=== PATIENT | female | born 1965 | race Caucasian/White ===

== ENCOUNTER → 2016-08-10 | Outpatient (CLI) | payer MEDICAID ==
--- NOTE | 2016-08-10 17:02 | MY ---
EXAMINATION: Bilateral digital mammography utilizing CAD. HISTORY: Screening exam. Comparison is made to previous studies dated 07/17/2014, 01/08/2012. FINDINGS: Bilateral scattered fibroglandular densities. No suspicious calcifications, masses or a rchitectural distortions. No pathologic appearing lymph nodes, no abnormal skin thickening or nipp le inversion. CAD highlighted regions appear normal at this time. IMPRESSION: BI-RADS category I - negative mammogram. Continued screening according to ACR-ACS gu idelines suggested. THE FALSE-NEGATIVE RATE OF MAMMOGRAM IS APPROXIMATELY 10%. MANAGEMENT OF A PALPABLE ABNORMALITY MUST BE BASED UPON CLINICAL GROUNDS. SENSITIVITY FOR DETECTION OF ABNORMALITIES IN DENSE BREASTS IS LOW. NOTE: A letter will be sent to the patient regarding findings. [facility] -- JOHANNA Reed [phone] - FAX [phone]
--- NOTE | 2016-08-11 20:03 | XA ---
Exam Date: 08/10/16 Patient's Age: 50 HEIGHT: 62.0 in. WEIGHT: 170.0 lbs. INDICATIONS: Back pain, , history of fracture (adult), hypertension, perimenopausal, tobacco user. FRACTURES: Foot, rib, toe. TREATMENTS: Doxepin, lamotrigine, lisinopril, Xarelto. ASSESSMENT: The BMD measured at Femur Neck Mean is 0.737 g/cm2 with a T-score of -2.2. This patient is considered osteopenic according to World Health Organization ( WHO) criteria. Bone density is between 10% and 25% below young normal. Fracture risk is moderate. Treatment is advised. The BMD measured at Femur Troch Mean is 0.669 g/cm2 with a T-score of -1.6 is considered moderately low. Fracture risk is moderate. Treatment is advised if there are other risk factors. RESULTS: Site Region Age Classification T-Score BMD AP Spine L1-L4 52.7 Osteopenia -1.7 0.990 g/cm2 Dual Femur Neck Mean 52.7 Osteopenia -2.2 0.737 g/cm2 Dual Femur Troch Mean 52.7 N/A -1.6 0.669 g/cm2 Dual Femur Total Mean 52.7 Osteopenia -1.5 0.820 g/cm2 World Health Organization - Criteria for post-menopausal, women: Normal: T-Score at or above -1 SD Osteopenia: T-Score between -1 and -2.5 SD Osteoporosis: T-Score at or below -2.5 SD RECOMMENDATION: Pharmacologic treatment recommendations & Initiate pharmacologic treatment: - In those with hip or vertebral (clinical or asymptomatic) fractures - In those with T -scores <-2.5 at the femoral neck, total hip, or lumbar spine by DXA - In postmenopausal women and men age 50 and older with low bone mass (T-score between -1.0 and -2.5, osteopenia) at the femoral neck, total hip, or lumbar spine by DXA and a 10-year hip fracture probability >3 % or a 10-year major osteoporosis-related fracture probability >20% based on the [place]-adapted WHO absolute fracture risk model (Fracture Risk Algorithm (FRAX); www. NOF.org and www.shef.ac.uk/FRAX) FOLLOW UP: People with diagnosed cases of osteoporosis or at high risk for fracture should have regular bone mineral density tests. For patients eligible for Medicare, routine testing is allowed once every 2 years. The testing frequency can be increased to 1 year for patients who have rapidly progressing disease, those who are reviewing or discontinuing medial therapy to restore bone mass, or have additional risk factors. People with diagnosed cases of osteoporosis or osteopenia should be regularly tested for bone mineral density. For patient eligible for Medicare, routine testing is allowed once every 2 years. The testing frequency can be increased to 1 year for patients who have rapidly progressing disease, or for those who are receiving medial therapy to restore bone mass. [facility] -- JOHANNA Reed [phone] - FAX: [phone] JOYCE
== END ==
LOC: MW.MAM 12:40
PROVIDERS: ATTEND Obstetrics & Gynecology
DX: Z12.31 Encounter for screening mammogram for malignant neoplasm of breast (principal); N95.1 Menopausal and female climacteric states
CPT/HCPCS: 77080; G0202

== ENCOUNTER 2016-08-27 12:25 | Observation (INO) | payer MEDICAID ==
[2016-08-27] MEDS ORDERED: Famotidine 20 MG/2 ML SDV IVPUSH ONE (12:47)
[2016-08-27] MEDS ORDERED: Sodium Chloride 0.9% 1,000 ML IV ONE ×2 (12:47→15:00)
[2016-08-27] MEDS ORDERED: Sodium Chloride 0.9% 2.5 ML Syringe FLUSH PRN (12:47)
[2016-08-27] MEDS ORDERED: Sodium Chloride 0.9% 10 ML Syringe FLUSH PRN (12:47)
--- NOTE | 2016-08-27 12:51 | EDM.PDOC ---
ED HISTORY OF PRESENT ILLNESS - General Chief Complaint: Neurological Problem Stated Complaint: HEART ATTACK Time Seen by Provider: 08/27/16 12:51 Source of Information: Reports: Patient History Limitations: Reports: No limitations - History of Present Illness INITIAL COMMENTS - FREE TEXT/NARRATIVE: HISTORY AND PHYSICAL: [50-year-old presenting with midsternal chest pain radiating latterally] History of Present Illness: [] Review of Systems: As per history of present illness and below otherwise all systems reviewed and negative. Past medical history: As per history of present illness and as reviewed below otherwise noncontributory. Surgical history: As per history of present illness and as reviewed below otherwise noncontributory. Social history: No reported history of drug or alcohol abuse. Family history: As per history of present illness and as reviewed below otherwise noncontributory. Physical exam: HEENT: Atraumatic, normocehpalic, pupils reactive, negative for conjunctival pallor or scleral icterus, mucous membranes moist, throat clear, neck supple, nontender, trachea midline. Lungs: Clear to auscultation, breath sounds equal bilaterally, chest non tender. Heart: S1S2, regular, negative for clicks, rubs, or JVD. Abdomen: Soft, nondistended, nontender. Negative for masses or hepatossplenmegaly. Negative for costovertebral tenderness. Pelvis: Stable nontender. Genitourinary: Deferred. Rectal: Deferred Extremities: Atraumatic, negative for cords or calf pain. Neurovascular unremarkable. Neuro: Awake, alert, oriented. Cranial nerves II through XII unremarkable. Cerebellum unremarkable. Motor and sensory unremarkable throughout. Exam nonfocal. Discussed case with Dr. Flores who accepted patient for observation. She will be placed on telemetry. Discussed concerns with the patient and request for her to stay for observation on telemetry. She is agreeable to this. Diagnostics: [cbc,cmp,cxr,lipase, amylase,ua EKG] Therapeutics: [Morphine 2 mg X2 Nitrostat sublingual x3] Impression: [#1 chest wall pain #2 seizures] Plan: Refer for observation Definitive disposition and diagnosis as appropriate pending reevaluation and review of above. Timing/Duration: Reports: Hour(s):, Sudden onset Severity: severe (01/21) Quality: Reports: Stabbing - Related Data Allergies/ADRs: Allergies Allergy/AdvReac Type Severity Reaction Status Date / Time aspirin Allergy Ringing in Verified 08/27/16 13:04 the Ears banana Allergy Stomach Verified 08/27/16 13:04 Ache [place] Allergy Stomach Uncoded 08/27/16 13:04 Ache [place] Allergy Stomach Uncoded 08/27/16 13:04 Ache Home Meds: Home Meds Doxepin HCl [Doxepin] 300 mg PO BEDTIME 12/27/13 [History] Omeprazole 40 mg PO BID 11/10/14 [History] Albuterol [Proair HFA] 1 - 2 inhaler INH ASDIRECTED PRN 12/21/14 [History] Fluticasone/Salmeterol [Advair 250-50] 1 inh INH ASDIRECTED PRN 12/21/14 [ History] Rivaroxaban [Xarelto] 20 mg PO DAILY 02/16/16 [History] lamoTRIgine [Lamotrigine] 100 mg PO BID 02/16/16 [History] Past Medical History HEENT History: Reports: Other (see below) Other HEENT History: TMJ "on Right" Cardiovascular History: Reports: Blood clots/VTE/DVT, Other (see below) Other Cardiovascular History: "Central Chest Pain" Respiratory History: Reports: Asthma Other Respiratory History: 40 yr history of smoking current use 1 pack/day Gastrointestinal History: Reports: None Genitourinary History: Reports: None 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: Musculoskeletal History: Reports: Arthritis, Back pain, chronic, Fibromyalgia, Other (see below) Other Musculoskeletal History: chronic shoulder pain Neurological History: Reports: Seizure Other Neuro History: TMJ Psychiatric History: Reports: Anxiety, Depression Other Psychiatric History: By diagnosis not shared in this interview Endocrine/Metabolic History: Reports: Obesity/BMI 30+ Hematologic History: Reports: Other (see below) Other Hematologic History: DVT Immunologic History: Reports: None Oncologic (Cancer) History: Reports: None Dermatologic History: Reports: None - Infectious Disease History Infectious Disease History: Reports: Chicken pox - Past Surgical History HEENT Surgical History: Reports: Tonsillectomy, Other (see below) Other HEENT Surgeries/Procedures: Cosmetic surgery under eyes GI Surgical History: Reports: Hernia, inguinal Female Surgical History: Reports: section Musculoskeletal Surgical History: Reports: Other (see below) Other Musculoskeletal Surgeries/Procedures:: left ankle fracture, 2nd MT osteotomy, gastroc recession Social & Family History - Family History Family Medical History: Noncontributory - Tobacco Use Smoking Status *Q: Current Every Day Smoker Years of Tobacco use: 30 Packs/Tins Daily: 1 Used Tobacco, but Quit: No Second Hand Smoke Exposure: Yes - Alcohol Use Days Per Week of Alcohol Use: 4 Number of Drinks Per Day: 1 Total Drinks Per Week: 4 - Recreational Drug Use Recreational Drug Use: No Drug Use in Last 12 Months: No - Living Situation & Occupation Living situation: Reports: ED ROS GENERAL - Review of Systems Review Of Systems: ROS reveals no pertinent complaints other than HPI. ED EXAM, GENERAL - Physical Exam Exam: See Below (see dictation) EKG INTERPRETATION EKG Date: 08/27/16 Rhythm: other (Sinus tachycardia) Course - Vital Signs Last Recorded V/S: Last Vital Signs Temp 36.8 C 08/27/16 12:45 Pulse 84 08/27/16 15:43 Resp 18 08/27/16 15:43 BP 146/91 H 08/27/16 15:43 Pulse Ox 96 08/27/16 15:43 - Orders/Labs/Meds Orders: Active Orders 24 hr Category Date Time Status Patient Status [ADT] Stat ADT 08/27/16 15:10 Active Cardiac Monitoring [RC] Q8H Care 08/27/16 12:47 Active EKG Documentation Completion [RC] STAT Care 08/27/16 12:49 Active Oxygen Therapy [RC] ASDIRECTED Care 08/27/16 12:47 Active Sodium Chloride 0.9% [Saline Flush] Med 08/27/16 12:47 Active 10 ml FLUSH ASDIRECTED PRN Sodium Chloride 0.9% [Saline Flush] Med 08/27/16 12:47 Active 2.5 ml FLUSH ASDIRECTED PRN Saline Lock Insert [OM.PC] Stat Oth 08/27/16 12:47 Ordered Medication Orders Sodium Chloride (Saline Flush) 10 ml FLUSH ASDIRECTED PRN PRN Reason: Keep Vein Open Sodium Chloride (Saline Flush) 2.5 ml FLUSH ASDIRECTED PRN PRN Reason: Keep Vein Open Labs: Laboratory Tests 08/27/16 08/27/16 08/27/16 Range/Units 12:35 12:35 13:41 WBC 7.51 (4.0-11.0) K/uL RBC 4.32 (4.30-5.90) M/uL Hgb 14.3 (12.0-16.0) g/dL Hct 42.8 (36.0-46.0) % MCV 99.1 H (80.0-98.0) fL MCH 33.1 H (27.0-32.0) pg MCHC 33.4 (31.0-37.0) g/dL RDW Std Deviation 53.7 (28.0-62.0) fl RDW Coeff of Arleen 15 (11.0-15.0) % Plt Count 256 (150-400) K/uL MPV 10.80 (7.40-12.00) fL Neut % (Auto) 65.3 (48.0-80.0) % Lymph % (Auto) 19.3 (16.0-40.0) % [place] % (Auto) 13.7 (0.0-15.0) % Eos % (Auto) 1.3 (0.0-7.0) % Baso % (Auto) 0.4 (0.0-1.5) % Neut # 4.9 (1.4-5.7) K/uL Lymph # 1.5 (0.6-2.4) K/uL [place] # 1.0 H (0.0-0.8) K/uL Eos # 0.1 (0.0-0.7) K/uL Baso # 0.0 (0.0-0.1) K/uL Nucleated RBC % 0.0 /100WBC Nucleated RBCs # 0 K/uL INR 1.22 H (0.86-1.11) Sodium (136-146) mmol/L Potassium (3.5-5.1) mmol/L Chloride (98-110) mmol/L Carbon Dioxide (21-31) mmol/L BUN (6.0-23.0) mg/dL Creatinine (0.6-1.5) mg/dL Est Cr Clr Drug Dosing mL/min Estimated GFR (MDRD) ml/min Glucose (60-110) mg/dL Calcium (8.8-10.8) mg/dL Total Bilirubin (0.1-1.5) mg/dL AST (5-40) IU/L ALT (8-54) IU/L Alkaline Phosphatase (40-150) Troponin I < 0.10 (0.0-0.29) NG/ML Total Protein (6.0-8.0) g/dL Albumin (3.5-5.0) g/dL Globulin (2.0-3.5) g/dL Albumin/Globulin Ratio (1.3-2.8) Amylase (10-90) U/L Lipase (7-80) U/L Urine Color Urine Appearance Urine pH (5.0-8.0) Ur Specific [place] (1.001-1.035) Urine Protein (NEGATIVE) mg/dL Urine Glucose (UA) (NEGATIVE) mg/dL Urine Ketones (NEGATIVE) mg/dL Urine Occult Blood (NEGATIVE) Urine Nitrite (NEGATIVE) Urine Bilirubin (NEGATIVE) Urine Urobilinogen (<2.0) EU/dL Ur Leukocyte Esterase (NEGATIVE) Urine RBC (0-2/HPF) Urine WBC (0-5/HPF) Ur Epithelial Cells (NONE-FEW) Urine Bacteria (NEGATIVE) 08/27/16 08/27/16 Range/Units 13:41 14:00 WBC (4.0-11.0) K/uL RBC (4.30-5.90) M/uL Hgb (12.0-16.0) g/dL Hct (36.0-46.0) % MCV (80.0-98.0) fL MCH (27.0-32.0) pg MCHC (31.0-37.0) g/dL RDW Std Deviation (28.0-62.0) fl RDW Coeff of Arleen (11.0-15.0) % Plt Count (150-400) K/uL MPV (7.40-12.00) fL Neut % (Auto) (48.0-80.0) % Lymph % (Auto) (16.0-40.0) % [place] % (Auto) (0.0-15.0) % Eos % (Auto) (0.0-7.0) % Baso % (Auto) (0.0-1.5) % Neut # (1.4-5.7) K/uL Lymph # (0.6-2.4) K/uL [place] # (0.0-0.8) K/uL Eos # (0.0-0.7) K/uL Baso # (0.0-0.1) K/uL Nucleated RBC % /100WBC Nucleated RBCs # K/uL INR (0.86-1.11) Sodium 134 L (136-146) mmol/L Potassium 4.1 (3.5-5.1) mmol/L Chloride 103 (98-110) mmol/L Carbon Dioxide 25 (21-31) mmol/L BUN 12 (6.0-23.0) mg/dL Creatinine 0.9 (0.6-1.5) mg/dL Est Cr Clr Drug Dosing 57.83 mL/min Estimated GFR (MDRD) > 60.0 ml/min Glucose 104 (60-110) mg/dL Calcium 8.9 (8.8-10.8) mg/dL Total Bilirubin 0.4 (0.1-1.5) mg/dL AST 30 (5-40) IU/L ALT 27 (8-54) IU/L Alkaline Phosphatase 69 (40-150) Troponin I (0.0-0.29) NG/ML Total Protein 6.8 (6.0-8.0) g/dL Albumin 3.7 (3.5-5.0) g/dL Globulin 3.1 (2.0-3.5) g/dL Albumin/Globulin Ratio 1.2 L (1.3-2.8) Amylase 42 (10-90) U/L Lipase 32 (7-80) U/L Urine Color YELLOW Urine Appearance CLEAR Urine pH 7.0 (5.0-8.0) Ur Specific [place] 1.010 (1.001-1.035) Urine Protein NEGATIVE (NEGATIVE) mg/dL Urine Glucose (UA) NEGATIVE (NEGATIVE) mg/dL Urine Ketones NEGATIVE (NEGATIVE) mg/dL Urine Occult Blood NEGATIVE (NEGATIVE) Urine Nitrite NEGATIVE (NEGATIVE) Urine Bilirubin NEGATIVE (NEGATIVE) Urine Urobilinogen 0.2 (<2.0) EU/dL Ur Leukocyte Esterase NEGATIVE (NEGATIVE) Urine RBC 0-1 (0-2/HPF) Urine WBC 0-2 (0-5/HPF) Ur Epithelial Cells FEW (NONE-FEW) Urine Bacteria FEW (NEGATIVE) Meds: Medications Generic Name Dose Route Start Last Admin Trade Name Freq PRN Reason Stop Dose Admin Sodium Chloride 10 ml 08/27/16 12:47 Saline Flush FLUSH ASDIRECTED PRN Keep Vein Open Sodium Chloride 2.5 ml 08/27/16 12:47 Saline Flush FLUSH ASDIRECTED PRN Keep Vein Open Discontinued Medications Generic Name Dose Route Start Last Admin Trade Name Freq PRN Reason Stop Dose Admin Famotidine 20 mg 08/27/16 12:47 08/27/16 13:14 Pepcid IVPUSH 08/27/16 12:48 20 mg ONETIME ONE Administration Sodium Chloride 1,000 mls @ 999 mls/hr 08/27/16 12:47 08/27/16 12:56 Normal Saline IV 08/27/16 13:47 999 mls/hr .Bolus ONE Administration Sodium Chloride 1,000 mls @ 999 mls/hr 08/27/16 15:00 08/27/16 15:20 Normal Saline IV 08/27/16 16:00 999 mls/hr STAT ONE Administration Morphine Sulfate 2 mg 08/27/16 15:11 08/27/16 15:18 Morphine IV 08/27/16 15:12 2 mg ONETIME ONE Administration Morphine Sulfate 2 mg 08/27/16 15:35 08/27/16 15:42 Morphine IV 08/27/16 15:36 2 mg ONETIME ONE Administration Nitroglycerin 0.4 mg 08/27/16 15:09 08/27/16 15:31 Nitrostat SL 08/27/16 15:20 0.4 mg Q5M PRN Administration Chest Pain Departure - Departure Time of Disposition: 15:30 Disposition: Refer to Observation Condition: good Clinical Impression: Chest wall pain Seizure Qualifiers: Convulsion type: unspecified Qualified Code(s): R56.9 - Unspecified convulsions - My Orders Last 24 Hours: My Active Orders 08/27/16 12:47 Cardiac Monitoring [RC] Q8H Oxygen Therapy [RC] ASDIRECTED Sodium Chloride 0.9% [Saline Flush] 10 ml FLUSH ASDIRECTED PRN Sodium Chloride 0.9% [Saline Flush] 2.5 ml FLUSH ASDIRECTED PRN Saline Lock Insert [OM.PC] Stat 08/27/16 12:49 EKG Documentation Completion [RC] STAT 08/27/16 15:10 Patient Status [ADT] Stat - Assessment/Plan Last 24 Hours: My Active Orders 08/27/16 12:47 Cardiac Monitoring [RC] Q8H Oxygen Therapy [RC] ASDIRECTED Sodium Chloride 0.9% [Saline Flush] 10 ml FLUSH ASDIRECTED PRN Sodium Chloride 0.9% [Saline Flush] 2.5 ml FLUSH ASDIRECTED PRN Saline Lock Insert [OM.PC] Stat 08/27/16 12:49 EKG Documentation Completion [RC] STAT 08/27/16 15:10 Patient Status [ADT] Stat
--- NOTE | 2016-08-27 13:40 | CR ---
EXAMINATION: Portable chest radiograph. HISTORY: Chest pain. FINDINGS: The trachea is midline. The cardiomediastinal silhouette is within normal limits. No pulmonary infil trates, effusions or pneumothorax. Osseous structures appear unremarkable. IMPRESSION: No acute cardiopulmonary process.
[2016-08-27 14:15] LABS: CHLORIDE,CL 103 mmol/L (98-110); SODIUM,NA 134 mmol/L (136-146)
[2016-08-27] MEDS ORDERED: Morphine 10 MG/ML Syringe IV ONE ×2 (15:11→15:35)
[2016-08-27] MEDS: Nitroglycerin 0.4 MG Tab.SL SL PRN ×3 (15:20→15:31)
[2016-08-27] MEDS: Morphine 2 MG/ML Syringe IVPUSH PRN ×2 (18:17→21:29)
[2016-08-27] MEDS ORDERED: Ondansetron 4 MG Tab.DIS PO PRN (19:33)
[2016-08-27] MEDS ORDERED: Acetaminophen 325 MG Tab PO PRN (19:33)
[2016-08-27] MEDS ORDERED: Albuterol 6.7 GM Inhaler INH PRN (19:40)
[2016-08-27] MEDS ORDERED: Morphine 2 MG/ML Syringe IV PRN (20:00)
--- NOTE | 2016-08-27 20:08 | PCM.HP ---
H&P History of Present Illness - General Date of Service: 08/27/16 Admit Problem/Dx: Chest pain rule out SC Source of Information: Patient History Limitations: Reports: No limitations - History of Present Illness Initial Comments - Free Text/Narative: 50-year-old female admitted for chest pain on 08/27/16 with pmh of hypertension, hyperlipidemia, current every day smoker, seizure disorder, GERD, asthma, DVT on Xarelto and alcoholism. Patient states that she awoke this morning at approximately 8 AM with constant midsternal chest pain. She believes there was some radiation into her right clavicle. The pain is worse when she presses on the area. She did have some nausea but denies any diaphoresis. Patient states that the pain has never went away and has been constant ever since this morning. She has no prior history of SC but does have a history of hypertension and hyperlipidemia as well as current one pack a day long-term smoker. In the emergency department patient was given morphine, oxygen, nitroglycerin. The morphine helped somewhat with the pain. Initial EKG showed normal sinus rhythm with no evidence of ST elevation. Initial troponin was less than 0.1. Patient was admitted for observation and training of troponin. Patient does have a history of alcohol as well as seizure disorder. She will put on seizure precautions as well as watch for any kind of withdrawal. Chest Pain Score (Numeric/FACES): 8 - Related Data Allergies/Adverse Reactions: Allergies Allergy/AdvReac Type Severity Reaction Status Date / Time aspirin Allergy Ringing in Verified 08/27/16 13:04 the Ears banana Allergy Stomach Verified 08/27/16 13:04 Ache [place] Allergy Stomach Uncoded 08/27/16 13:04 Ache [place] Allergy Stomach Uncoded 08/27/16 13:04 Ache Home Medications: Home Meds Doxepin HCl [Doxepin] 300 mg PO BEDTIME 12/27/13 [History] Omeprazole 40 mg PO BID 11/10/14 [History] Albuterol [Proair HFA] 1 - 2 inhaler INH ASDIRECTED PRN 12/21/14 [History] Fluticasone/Salmeterol [Advair 250-50] 1 inh INH ASDIRECTED PRN 12/21/14 [ History] Rivaroxaban [Xarelto] 20 mg PO DAILY 02/16/16 [History] lamoTRIgine [Lamotrigine] 100 mg PO BID 02/16/16 [History] Past Medical History HEENT History: Reports: Other (see below) Other HEENT History: TMJ "on Right" Cardiovascular History: Reports: Blood clots/VTE/DVT, Other (see below) Other Cardiovascular History: "Central Chest Pain" Respiratory History: Reports: Asthma Other Respiratory History: 40 yr history of smoking current use 1 pack/day Gastrointestinal History: Reports: None Genitourinary History: Reports: None 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: Musculoskeletal History: Reports: Arthritis, Back pain, chronic, Fibromyalgia, Other (see below) Other Musculoskeletal History: chronic shoulder pain Neurological History: Reports: Seizure Other Neuro History: TMJ Psychiatric History: Reports: Anxiety, Depression Other Psychiatric History: By diagnosis not shared in this interview Endocrine/Metabolic History: Reports: Obesity/BMI 30+ Hematologic History: Reports: Other (see below) Other Hematologic History: DVT Immunologic History: Reports: None Oncologic (Cancer) History: Reports: None Dermatologic History: Reports: None - Infectious Disease History Infectious Disease History: Reports: Chicken pox - Past Surgical History HEENT Surgical History: Reports: Tonsillectomy, Other (see below) Other HEENT Surgeries/Procedures: Cosmetic surgery under eyes GI Surgical History: Reports: Hernia, inguinal Female Surgical History: Reports: section Musculoskeletal Surgical History: Reports: Other (see below) Other Musculoskeletal Surgeries/Procedures:: left ankle fracture, 2nd MT osteotomy, gastroc recession Social & Family History - Family History Family Medical History: Noncontributory - Tobacco Use Smoking Status *Q: Current Every Day Smoker Years of Tobacco use: 30 Packs/Tins Daily: 1 Used Tobacco, but Quit: No Second Hand Smoke Exposure: Yes - Caffeine Use Caffeine Use: Reports: Coffee - Alcohol Use Days Per Week of Alcohol Use: 4 Number of Drinks Per Day: 1 Total Drinks Per Week: 4 Date of Last Drink: 08/26/16 Time of Last Drink: 21:00 - Recreational Drug Use Recreational Drug Use: No Drug Use in Last 12 Months: No - Living Situation & Occupation Living situation: Reports: H&P Review of Systems - Review of Systems: Review Of Systems: See Below General: Denies: fever, chills, weakness HEENT: Reports: sore throat. Denies: eye pain Pulmonary: Denies: Shortness of Breath, Wheezing, Cough Cardiovascular: Reports: chest pain. Denies: palpitations, edema Gastrointestinal: Denies: Abdominal pain, Diarrhea Genitourinary: Denies: dysuria, hematuria Musculoskeletal: Denies: neck pain Skin: Denies: cyanosis Psychiatric: Denies: confusion Neurological: Denies: Confusion, Dizziness, Headache Hematologic/Lymphatic: Reports: easy bleeding, easy bruising. Denies: anemia Exam - Exam Exam: See Below - Vital Signs Vital Signs: Last Vital Signs Temp 36.8 C 08/27/16 12:45 Pulse 84 08/27/16 15:43 Resp 18 08/27/16 15:43 BP 146/91 H 08/27/16 15:43 Pulse Ox 96 08/27/16 15:43 Weight: 83.5 kg - Exam Quality Assessment: DVT prophylaxis General: alert, oriented, cooperative HEENT: PERRLA, Hearing intact, Mucosa moist & pink, Nares patent, Normal nasal septum, Posterior pharynx clear, Conjunctiva clear, EOMI, EACs clear, TMs clear Neck: supple, trachea midline, 2 Lungs: Clear to auscultation, Normal respiratory effort Cardiovascular: regular rate, regular rhythm, normal S1, normal S2 Abdomen: normal bowel sounds, soft Extremities: 3, normal inspection, 10 Peripheral Pulses: 2+: radial (L), radial (R), posterior tibial (L), posterior tibial (R), dorsalis pedis (L), dorsalis pedis (R) Skin: warm, dry, intact Neurological: cranial nerves intact, reflexes equal bilateral Neuro Extensive - Mental Status: alert, oriented x3, normal mood/affect, normal cognition Neuro Extensive - Motor, Sensory, Reflexes: CN II-XII intact, normal gait, normal reflexes Psychiatric: alert, normal affect, normal mood, agitated - Patient Data Lab Results last 24 hrs: Laboratory Results - last 24 hr 08/27/16 Range/Units 18:20 Troponin I < 0.10 (0.0-0.29) NG/ML Result Diagrams: 08/27/16 12:35 08/27/16 13:41 *Q Meaningful Use (ADM) - VTE *Q VTE Criteria *Q: - Stroke *Q Stroke Criteria *Q: - AMI *Q AMI Criteria *Q: - Problem List (1) HTN (hypertension) SNOMED Code(s): 32732045 ICD Code: I10 - ESSENTIAL (PRIMARY) HYPERTENSION Status: Chronic Priority : Medium Current Visit: Yes Qualifiers: Hypertension type: essential hypertension Qualified Code(s): I10 - Essential (primary) hypertension (2) Seizure disorder SNOMED Code(s): 110991555 ICD Code: G40.909 - EPILEPSY, UNSP, NOT INTRACTABLE, WITHOUT STATUS EPILEPTICUS Status: Chronic Priority: Medium Current Visit: Yes (3) Asthma SNOMED Code(s): 577736654 ICD Code: J45.909 - UNSPECIFIED ASTHMA, UNCOMPLICATED Status: Chronic Priority: Medium Current Visit: Yes Qualifiers: Asthma severity: unspecified severity Asthma complication type: uncomplicated Qualified Code(s): J45.909 - Unspecified asthma, uncomplicated (4) Chest wall pain SNOMED Code(s): 620309510 ICD Code: R07.89 - OTHER CHEST PAIN Status: Acute Priority: High Current Visit: Yes Problem List Initiated/Reviewed/Updated: Yes Orders Last 24hrs: Active Orders 24 hr Category Date Time Status Patient Status [ADT] Routine ADT 08/27/16 19:33 Ordered Antiembolic Devices [RC] PER UNIT ROUTINE Care 08/27/16 19:37 Ordered Cardiac Monitoring [RC] CONTINUOUS Care 08/27/16 19:35 Ordered EKG 12 Lead [EKG Documentation Completion] [RC] STAT Care 08/27/16 17:57 Active Oxygen Therapy [RC] PRN Care 08/27/16 19:33 Ordered Telemetry Monitoring [Cardiac Monitoring] [RC] . Care 08/27/16 18:01 Active DIRECTED Up With Assistance [RC] ASDIRECTED Care 08/27/16 19:33 Ordered VTE/DVT Education [RC] PER UNIT ROUTINE Care 08/27/16 19:33 Ordered Vital Signs [RC] Q4H Care 08/27/16 19:33 Ordered Heart Healthy Diet [DIET] Diet 08/27/16 Dinner Active BASIC METABOLIC PANEL,BMP [CHEM] DAILY Lab 08/28/16 05:10 Ordered BASIC METABOLIC PANEL,BMP [CHEM] DAILY Lab 08/29/16 05:10 Ordered BASIC METABOLIC PANEL,BMP [CHEM] DAILY Lab 08/30/16 05:10 Ordered BASIC METABOLIC PANEL,BMP [CHEM] DAILY Lab 08/31/16 05:10 Ordered CBC WITH AUTO DIFF [HEME] DAILY Lab 08/28/16 05:10 Ordered CBC WITH AUTO DIFF [HEME] DAILY Lab 08/29/16 05:10 Ordered CBC WITH AUTO DIFF [HEME] DAILY Lab 08/30/16 05:10 Ordered CBC WITH AUTO DIFF [HEME] DAILY Lab 08/31/16 05:10 Ordered TROPONIN I [CHEM] Q6H Lab 08/27/16 22:00 Ordered TROPONIN I [CHEM] Q6H Lab 08/28/16 04:00 Ordered Acetaminophen [Tylenol] Med 08/27/16 19:33 Ordered 650 mg PO Q4H PRN Albuterol [Proventil HFA] Med 08/27/16 19:40 Ordered 1 - 2 inhaler INH ASDIRECTED PRN Doxepin HCl [Doxepin] Med 08/27/16 21:00 Ordered 300 mg PO BEDTIME Fluticasone/Salmeterol [Advair Diskus 250-50] Med 08/27/16 19:42 Ordered 1 puff INH ASDIRECTED PRN Lisinopril [Prinivil] Med 08/28/16 09:00 Ordered 10 mg PO DAILY Morphine Med 08/27/16 17:57 Active 2 mg IVPUSH Q2H PRN Morphine Med 08/27/16 19:33 Ordered 2 mg IVPUSH Q2H PRN Nicotine [Habitrol] Med 08/28/16 09:00 Ordered 14 mg TRDERM DAILY Omeprazole Med 08/27/16 21:00 Ordered 40 mg PO BID Ondansetron [Zofran ODT] Med 08/27/16 19:33 Ordered 4 mg PO Q4H PRN Rivaroxaban [Xarelto] Med 08/28/16 09:00 Ordered 20 mg PO DAILY lamoTRIgine Med 08/27/16 21:00 Ordered 100 mg PO BID Seizure Precautions [OM.PC] Routine Oth 08/27/16 19:43 Ordered Sequential Compression Device [OM.PC] Per Unit Routine Oth 08/27/16 19:36 Ordered Resuscitation Status Routine Resus Stat 08/27/16 19:33 Ordered Medication Orders Acetaminophen (Tylenol) 650 mg PO Q4H PRN PRN Reason: Pain (Mild 1-3)/fever Albuterol (Proventil Hfa) 0 gm INH ASDIRECTED PRN PRN Reason: Shortness of Breath Doxepin HCl ([place]) 300 mg PO BEDTIME [facility] Lamotrigine (Lamotrigine) 100 mg PO BID [facility] Lisinopril (Prinivil) 10 mg PO DAILY [facility] Morphine Sulfate (Morphine) 2 mg IVPUSH Q2H PRN PRN Reason: Chest Pain Last Admin: 08/27/16 18:17 Dose: 2 mg Morphine Sulfate (Morphine) 2 mg IV Q2H PRN PRN Reason: PAIN LEVEL 7-10 Nicotine (Habitrol) 14 mg TRDERM DAILY [facility] Omeprazole (Omeprazole) 40 mg PO BID [facility] Ondansetron HCl (Zofran Odt) 4 mg PO Q4H PRN PRN Reason: nausea, able to take PO Rivaroxaban (Xarelto) 20 mg PO WITHDINNER [facility] Fluticasone/Salmeterol (Advair Diskus 250-50) 0 puff INH BIDRT PRN PRN Reason: Dyspnea Sodium Chloride (Saline Flush) 10 ml FLUSH ASDIRECTED PRN PRN Reason: Keep Vein Open Sodium Chloride (Saline Flush) 2.5 ml FLUSH ASDIRECTED PRN PRN Reason: Keep Vein Open Assessment/Plan Comment:: 50 yo female with acute chest wall pain with history of htn, hld, seizure disorder, DVT on Xarelto. Chest pain: Pain is reproducible on palpation most likely pleurisy. EKG show no ST elevation, initial troponin <0.1. Will trend troponin. IV morphine for pain 2 mg. Oxygen as needed if pain returns. Htn: Currently controlled will restart patients lisinopril 10 mg. Seizure disorder: Seizure precautions and patients home meds restarted will monito. Hx of DVT: Currently on Xarelto will continue home med. VTE proph: SCD and On Xarelto
[2016-08-27] MEDS: Fluticasone/Salmeterol 250-50 MCG Inhalation Powder 14/Diskus INH PRN (20:15)
[2016-08-27] MEDS ORDERED: Doxepin 25 MG Cap PO SCH (21:00)
[2016-08-27] MEDS: Omeprazole 20 MG Cap.CR PO SCH (21:09)
[2016-08-27] MEDS: lamoTRIgine 100 MG Tab PO SCH (21:10)
[2016-08-28] MEDS: lamoTRIgine 100 MG Tab PO SCH (08:16)
[2016-08-28] MEDS: Omeprazole 20 MG Cap.CR PO SCH (08:16)
[2016-08-28] MEDS: Fluticasone/Salmeterol 250-50 MCG Inhalation Powder 14/Diskus INH PRN (08:36)
[2016-08-28] MEDS: Morphine 2 MG/ML Syringe IVPUSH PRN ×2 (08:38→12:50)
[2016-08-28] MEDS ORDERED: Lisinopril 10 MG Tab PO SCH (09:00)
[2016-08-28] MEDS ORDERED: Nicotine 14 MG/24 Hr Patch TRDERM SCH (09:00)
[2016-08-28 13:03] VITALS: BP 124/86
[2016-08-28] MEDS ORDERED: Rivaroxaban 10 MG Tab PO SCH (17:30)
--- NOTE | 2016-08-29 14:42 | PCM.DCSUM1 ---
Addendum entered and electronically signed by Ben Lambert MD 08/29/16 15:05 : Discharge Summary - Hospital Course Brief History: Patient awoke on 08/27 at approximately 8 AM with constant midsternal chest pain. She believed there was some radiation into her right clavicle. The pain was worse when she presses on the area. She did have some nausea but denied any diaphoresis. Patient stated pain has never went away and has been constant ever since that morning. She had no prior history of NE but does have a history of hypertension and hyperlipidemia as well as current one pack a day long-term smoker. In emergency department patient was given morphine , oxygen, nitroglycerin. Morphine helped somewhat with the pain. Initial EKG showed normal sinus rhythm with no evidence of ST elevation. Initial troponin was less than 0.1. Patient was admitted for observation and training of troponin. - Discharge Data Discharge Date: 08/28/16 Discharge Disposition: Home, Self-Care 01 Condition: Good - Discharge Diagnosis/Problem(s) (1) HTN (hypertension) SNOMED Code(s): 55831234 ICD Code: I10 - ESSENTIAL (PRIMARY) HYPERTENSION Status: Chronic Priority : Medium Qualifiers: Hypertension type: essential hypertension Qualified Code(s): I10 - Essential (primary) hypertension (2) Seizure disorder SNOMED Code(s): 811994430 ICD Code: G40.909 - EPILEPSY, UNSP, NOT INTRACTABLE, WITHOUT STATUS EPILEPTICUS Status: Chronic Priority: Medium (3) Asthma SNOMED Code(s): 797294820 ICD Code: J45.909 - UNSPECIFIED ASTHMA, UNCOMPLICATED Status: Chronic Priority: Medium Qualifiers: Asthma severity: unspecified severity Asthma complication type: uncomplicated Qualified Code(s): J45.909 - Unspecified asthma, uncomplicated (4) Chest wall pain SNOMED Code(s): 089440382 ICD Code: R07.89 - OTHER CHEST PAIN Status: Acute Priority: High - Patient Summary/Data Operative Procedure(s) Performed: Laparoscopic appendectomy - Patient Instructions Diet: Heart Healthy Diet Activity: As Tolerated Driving: Do Not Drive Showering/Bathing: May Shower Notify Provider of: Fever, Increased Pain, Nausea and/or Vomiting - Discharge Plan Home Medications: Home Meds Doxepin HCl [Doxepin] 300 mg PO BEDTIME 12/27/13 [History] Omeprazole 40 mg PO BID 11/10/14 [History] Albuterol [Proair HFA] 1 - 2 inhaler INH ASDIRECTED PRN 12/21/14 [History] Fluticasone/Salmeterol [Advair 250-50] 1 inh INH ASDIRECTED PRN 12/21/14 [ History] Rivaroxaban [Xarelto] 20 mg PO DAILY 02/16/16 [History] lamoTRIgine [Lamotrigine] 100 mg PO BID 02/16/16 [History] Patient Handouts: Chest Wall Pain Referrals: Rosalba Rich MD [Physician] - 09/11/16 10:00 am Summer Hernandez MD [Physician] - 09/01/16 8:00 am José Miguel Almodovar MD [Primary Care Provider] - 09/08/16 9:00 am - Discharge Summary/Plan Comment DC Time >30 min.: No - General Info Date of Service: 08/28/16 Admission Dx/Problem (Free Text: Chest pain rule out NE Functional Status: Reports: pain controlled - Review of Systems General: Reports: No Symptoms HEENT: Reports: no symptoms Pulmonary: Reports: no symptoms Cardiovascular: Reports: No Symptoms Gastrointestinal: Reports: No symptoms Genitourinary: Reports: no symptoms Musculoskeletal: Reports: no symptoms Skin: Reports: no symptoms Neurological: Reports: No Symptoms Psychiatric: Reports: no symptoms - Patient Data Vitals - Most Recent: Last Vital Signs Temp 35.9 C 08/28/16 12:00 Pulse 81 08/28/16 12:00 Resp 20 08/28/16 12:00 BP 124/86 08/28/16 12:00 Pulse Ox 96 08/28/16 12:00 Weight - Most Recent: 83.5 kg Lab Results - Last 24 hrs: Laboratory Results - last 24 hr 08/28/16 Range/Units 11:50 POC Glucose 131 H (60-110) mg/dL Med Orders - Current: Current Medications Discontinued Medications Acetaminophen (Tylenol) 650 mg PO Q4H PRN PRN Reason: Pain (Mild 1-3)/fever Albuterol (Proventil Hfa) 0 gm INH ASDIRECTED PRN PRN Reason: Shortness of Breath Doxepin HCl (Sinequan) 300 mg PO BEDTIME [facility] Last Admin: 08/27/16 21:10 Dose: 300 mg Famotidine (Pepcid) 20 mg IVPUSH ONETIME ONE Stop: 08/27/16 12:48 Last Admin: 08/27/16 13:14 Dose: 20 mg Sodium Chloride (Normal Saline) 1,000 mls @ 999 mls/hr IV .Bolus ONE Stop: 08/27/16 13:47 Last Admin: 08/27/16 12:56 Dose: 999 mls/hr Sodium Chloride (Normal Saline) 1,000 mls @ 999 mls/hr IV STAT ONE Stop: 08/27/16 16:00 Last Admin: 08/27/16 15:20 Dose: 999 mls/hr Lamotrigine (Lamotrigine) 100 mg PO BID [facility] Last Admin: 08/28/16 08:16 Dose: 100 mg Lisinopril (Prinivil) 10 mg PO DAILY [facility] Last Admin: 08/28/16 08:16 Dose: 10 mg Morphine Sulfate (Morphine) 2 mg IV ONETIME ONE Stop: 08/27/16 15:12 Last Admin: 08/27/16 15:18 Dose: 2 mg Morphine Sulfate (Morphine) 2 mg IV ONETIME ONE Stop: 08/27/16 15:36 Last Admin: 08/27/16 15:42 Dose: 2 mg Morphine Sulfate (Morphine) 2 mg IVPUSH Q2H PRN PRN Reason: Chest Pain Last Admin: 08/28/16 12:50 Dose: 2 mg Morphine Sulfate (Morphine) 2 mg IV Q2H PRN PRN Reason: PAIN LEVEL 7-10 Nicotine (Habitrol) 14 mg TRDERM DAILY [facility] Last Admin: 08/28/16 08:15 Dose: 14 mg Nitroglycerin (Nitrostat) 0.4 mg SL Q5M PRN PRN Reason: Chest Pain Stop: 08/27/16 15:20 Last Admin: 08/27/16 15:31 Dose: 0.4 mg Omeprazole (Omeprazole) 40 mg PO BID [facility] Last Admin: 08/28/16 08:16 Dose: 40 mg Ondansetron HCl (Zofran Odt) 4 mg PO Q4H PRN PRN Reason: nausea, able to take PO Rivaroxaban (Xarelto) 20 mg PO WITHEROS [facility] Fluticasone/Salmeterol (Advair Diskus 250-50) 0 puff INH BIDRT PRN PRN Reason: Dyspnea Last Admin: 08/28/16 08:36 Dose: 1 inhalation Sodium Chloride (Saline Flush) 10 ml FLUSH ASDIRECTED PRN PRN Reason: Keep Vein Open Sodium Chloride (Saline Flush) 2.5 ml FLUSH ASDIRECTED PRN PRN Reason: Keep Vein Open - Exam Quality Assessment: Reports: DVT prophylaxis General: Reports: alert, oriented HEENT: Reports: Pupils equal, Pupils reactive, EOMI, Mucous membr. moist/pink Neck: Reports: supple Lungs: Reports: Clear to auscultation, Normal respiratory effort Cardiovascular: Reports: Regular Rate, Regular Rhythm Abdomen: Reports: bowel sounds present, soft, no tenderness, no distension Back Exam: Reports: normal inspection Extremities: Reports: no edema, normal pulses Skin: Reports: warm, dry, intact Wound/Incisions: Reports: healing well Neurological: Reports: no new focal deficit Psy/Mental Status: Reports: alert, normal affect, normal mood Original Note: <Ben Lambert - Last Filed: 08/29/16 15:03> Discharge Summary - Hospital Course HPI Initial Comments: 50-year-old female admitted for chest pain on 08/27/16 with pmh of hypertension, hyperlipidemia, current every day smoker, seizure disorder, GERD, asthma, DVT on Xarelto and alcoholism. Brief History: Patient awoke on 08/27 at approximately 8 AM with constant midsternal chest pain. She believed there was some radiation into her right clavicle. The pain was worse when she presses on the area. She did have some nausea but denied any diaphoresis. Patient stated pain has never went away and has been constant ever since that morning. She had no prior history of NE but does have a history of hypertension and hyperlipidemia as well as current one pack a day long-term smoker. In emergency department patient was given morphine , oxygen, nitroglycerin. Morphine helped somewhat with the pain. Initial EKG showed normal sinus rhythm with no evidence of ST elevation. Initial troponin was less than 0.1. Patient was admitted for observation and training of troponin. - Discharge Data Discharge Date: 08/28/16 Discharge Disposition: Home, Self-Care 01 Condition: Good - Discharge Diagnosis/Problem(s) (1) HTN (hypertension) SNOMED Code(s): 02263711 ICD Code: I10 - ESSENTIAL (PRIMARY) HYPERTENSION Status: Chronic Priority : Medium Qualifiers: Hypertension type: essential hypertension Qualified Code(s): I10 - Essential (primary) hypertension (2) Seizure disorder SNOMED Code(s): 928166261 ICD Code: G40.909 - EPILEPSY, UNSP, NOT INTRACTABLE, WITHOUT STATUS EPILEPTICUS Status: Chronic Priority: Medium (3) Asthma SNOMED Code(s): 416888986 ICD Code: J45.909 - UNSPECIFIED ASTHMA, UNCOMPLICATED Status: Chronic Priority: Medium Qualifiers: Asthma severity: unspecified severity Asthma complication type: uncomplicated Qualified Code(s): J45.909 - Unspecified asthma, uncomplicated (4) Chest wall pain SNOMED Code(s): 517118989 ICD Code: R07.89 - OTHER CHEST PAIN Status: Acute Priority: High - Patient Summary/Data Operative Procedure(s) Performed: Laparoscopic appendectomy - Patient Instructions Diet: Heart Healthy Diet Activity: As Tolerated Driving: Do Not Drive Showering/Bathing: October Shower Notify Provider of: Fever, Increased Pain, Nausea and/or Vomiting - Discharge Plan Home Medications: Home Meds Doxepin HCl [Doxepin] 300 mg PO BEDTIME 12/27/13 [History] Omeprazole 40 mg PO BID 11/10/14 [History] Albuterol [Proair HFA] 1 - 2 inhaler INH ASDIRECTED PRN 12/21/14 [History] Fluticasone/Salmeterol [Advair 250-50] 1 inh INH ASDIRECTED PRN 12/21/14 [ History] Rivaroxaban [Xarelto] 20 mg PO DAILY 02/16/16 [History] lamoTRIgine [Lamotrigine] 100 mg PO BID 02/16/16 [History] Patient Handouts: Chest Wall Pain Referrals: Rosalba Rich MD [Physician] - 09/11/16 10:00 am Summer Hernandez MD [Physician] - 09/01/16 8:00 am José Miguel Almodovar MD [Primary Care Provider] - 09/08/16 9:00 am - Discharge Summary/Plan Comment DC Time >30 min.: No Discharge Summary/Plan Comment: 50-year-old female admitted for chest pain on 08/27/16 with pmh of hypertension , hyperlipidemia, current every day smoker, seizure disorder, GERD, asthma, DVT on Xarelto and alcoholism. Patient awoke on 08/27 at approximately 8 AM with constant midsternal chest pain. She believed there was some radiation into her right clavicle. The pain was worse when she presses on the area. She did have some nausea but denied any diaphoresis. Patient stated pain has never went away and has been constant ever since that morning. She had no prior history of NE but does have a history of hypertension and hyperlipidemia as well as current one pack a day long-term smoker. In emergency department patient was given morphine, oxygen, nitroglycerin. Morphine helped somewhat with the pain. Initial EKG showed normal sinus rhythm with no evidence of ST elevation. Initial troponin was less than 0.1. Patient was admitted for observation and training of troponin. Patient was observed overnight and serial troponins were negative for ischemic findings. Patient did well and was discharged on 08/28/26 with followup appointments made for her PCP Dr. Almodovar, her neurologist Dr. Hernandez, a stress test, and a cardiac followup secondary to her history of smoking, hyperlipidemia, hypertension, and multiple ED visits for chest pain. - Patient Data Vitals - Most Recent: Last Vital Signs Temp 35.9 C 08/28/16 12:00 Pulse 81 08/28/16 12:00 Resp 20 08/28/16 12:00 BP 124/86 08/28/16 12:00 Pulse Ox 96 08/28/16 12:00 Weight - Most Recent: 83.5 kg Lab Results - Last 24 hrs: Laboratory Results - last 24 hr 08/28/16 Range/Units 11:50 POC Glucose 131 H (60-110) mg/dL Med Orders - Current: Current Medications Discontinued Medications Acetaminophen (Tylenol) 650 mg PO Q4H PRN PRN Reason: Pain (Mild 1-3)/fever Albuterol (Proventil Hfa) 0 gm INH ASDIRECTED PRN PRN Reason: Shortness of Breath Doxepin HCl (Sinequan) 300 mg PO BEDTIME [facility] Last Admin: 08/27/16 21:10 Dose: 300 mg Famotidine (Pepcid) 20 mg IVPUSH ONETIME ONE Stop: 08/27/16 12:48 Last Admin: 08/27/16 13:14 Dose: 20 mg Sodium Chloride (Normal Saline) 1,000 mls @ 999 mls/hr IV .Bolus ONE Stop: 08/27/16 13:47 Last Admin: 08/27/16 12:56 Dose: 999 mls/hr Sodium Chloride (Normal Saline) 1,000 mls @ 999 mls/hr IV STAT ONE Stop: 08/27/16 16:00 Last Admin: 08/27/16 15:20 Dose: 999 mls/hr Lamotrigine (Lamotrigine) 100 mg PO BID [facility] Last Admin: 08/28/16 08:16 Dose: 100 mg Lisinopril (Prinivil) 10 mg PO DAILY [facility] Last Admin: 08/28/16 08:16 Dose: 10 mg Morphine Sulfate (Morphine) 2 mg IV ONETIME ONE Stop: 08/27/16 15:12 Last Admin: 08/27/16 15:18 Dose: 2 mg Morphine Sulfate (Morphine) 2 mg IV ONETIME ONE Stop: 08/27/16 15:36 Last Admin: 08/27/16 15:42 Dose: 2 mg Morphine Sulfate (Morphine) 2 mg IVPUSH Q2H PRN PRN Reason: Chest Pain Last Admin: 08/28/16 12:50 Dose: 2 mg Morphine Sulfate (Morphine) 2 mg IV Q2H PRN PRN Reason: PAIN LEVEL 7-10 Nicotine (Habitrol) 14 mg TRDERM DAILY [facility] Last Admin: 08/28/16 08:15 Dose: 14 mg Nitroglycerin (Nitrostat) 0.4 mg SL Q5M PRN PRN Reason: Chest Pain Stop: 08/27/16 15:20 Last Admin: 08/27/16 15:31 Dose: 0.4 mg Omeprazole (Omeprazole) 40 mg PO BID [facility] Last Admin: 08/28/16 08:16 Dose: 40 mg Ondansetron HCl (Zofran Odt) 4 mg PO Q4H PRN PRN Reason: nausea, able to take PO Rivaroxaban (Xarelto) 20 mg PO WITHDINNER [facility] Fluticasone/Salmeterol (Advair Diskus 250-50) 0 puff INH BIDRT PRN PRN Reason: Dyspnea Last Admin: 08/28/16 08:36 Dose: 1 inhalation Sodium Chloride (Saline Flush) 10 ml FLUSH ASDIRECTED PRN PRN Reason: Keep Vein Open Sodium Chloride (Saline Flush) 2.5 ml FLUSH ASDIRECTED PRN PRN Reason: Keep Vein Open *Q Meaningful Use (DIS) - VTE *Q VTE Criteria *Q: - Stroke *Q Stroke Criteria *Q: - AMI *Q AMI Criteria *Q: <Devonte Flores - Last Filed: 08/31/16 11:16> - Patient Data Vitals - Most Recent: Last Vital Signs Temp 35.9 C 08/28/16 12:00 Pulse 81 08/28/16 12:00 Resp 20 08/28/16 12:00 BP 124/86 08/28/16 12:00 Pulse Ox 96 08/28/16 12:00 Med Orders - Current: Current Medications Discontinued Medications Acetaminophen (Tylenol) 650 mg PO Q4H PRN PRN Reason: Pain (Mild 1-3)/fever Albuterol (Proventil Hfa) 0 gm INH ASDIRECTED PRN PRN Reason: Shortness of Breath Doxepin HCl (Sinequan) 300 mg PO BEDTIME [facility] Last Admin: 08/27/16 21:10 Dose: 300 mg Famotidine (Pepcid) 20 mg IVPUSH ONETIME ONE Stop: 08/27/16 12:48 Last Admin: 08/27/16 13:14 Dose: 20 mg Sodium Chloride (Normal Saline) 1,000 mls @ 999 mls/hr IV .Bolus ONE Stop: 08/27/16 13:47 Last Admin: 08/27/16 12:56 Dose: 999 mls/hr Sodium Chloride (Normal Saline) 1,000 mls @ 999 mls/hr IV STAT ONE Stop: 08/27/16 16:00 Last Admin: 08/27/16 15:20 Dose: 999 mls/hr Lamotrigine (Lamotrigine) 100 mg PO BID [facility] Last Admin: 08/28/16 08:16 Dose: 100 mg Lisinopril (Prinivil) 10 mg PO DAILY [facility] Last Admin: 08/28/16 08:16 Dose: 10 mg Morphine Sulfate (Morphine) 2 mg IV ONETIME ONE Stop: 08/27/16 15:12 Last Admin: 08/27/16 15:18 Dose: 2 mg Morphine Sulfate (Morphine) 2 mg IV ONETIME ONE Stop: 08/27/16 15:36 Last Admin: 08/27/16 15:42 Dose: 2 mg Morphine Sulfate (Morphine) 2 mg IVPUSH Q2H PRN PRN Reason: Chest Pain Last Admin: 08/28/16 12:50 Dose: 2 mg Morphine Sulfate (Morphine) 2 mg IV Q2H PRN PRN Reason: PAIN LEVEL 7-10 Nicotine (Habitrol) 14 mg TRDERM DAILY [facility] Last Admin: 08/28/16 08:15 Dose: 14 mg Nitroglycerin (Nitrostat) 0.4 mg SL Q5M PRN PRN Reason: Chest Pain Stop: 08/27/16 15:20 Last Admin: 08/27/16 15:31 Dose: 0.4 mg Omeprazole (Omeprazole) 40 mg PO BID [facility] Last Admin: 08/28/16 08:16 Dose: 40 mg Ondansetron HCl (Zofran Odt) 4 mg PO Q4H PRN PRN Reason: nausea, able to take PO [facility]) [facility] Fluticasone/Salmeterol (Advair Diskus 250-50) 0 puff INH BIDRT PRN PRN Reason: Dyspnea Last Admin: 08/28/16 08:36 Dose: 1 inhalation Sodium Chloride (Saline Flush) 10 ml FLUSH ASDIRECTED PRN PRN Reason: Keep Vein Open Sodium Chloride (Saline Flush) 2.5 ml FLUSH ASDIRECTED PRN PRN Reason: Keep Vein Open *Q Meaningful Use (DIS) - VTE *Q VTE Criteria *Q: - Stroke *Q Stroke Criteria *Q: - AMI *Q AMI Criteria *Q: - Free Text/Narrative Note: I have examined the patient. I have discussed findings and treatment plan with resident. I agree with the assessment and plan outlined in the resident's note.
== END 2016-08-28 13:00 | disposition home or self-care (01) ==
LOC: MW.ED 12:25 → MW.MS 15:23
PROVIDERS: ADMIT Internal Medicine; ATTEND Internal Medicine
DX: R07.89 Other chest pain (principal); I10 Essential (primary) hypertension; G40.909 Epilepsy, unspecified, not intractable, without status epilepticus; J45.909 Unspecified asthma, uncomplicated; E78.5 Hyperlipidemia, unspecified; F17.210 Nicotine dependence, cigarettes, uncomplicated; M19.90 Unspecified osteoarthritis, unspecified site; M79.7 Fibromyalgia; F41.9 Anxiety disorder, unspecified; F32.9 Major depressive disorder, single episode, unspecified; E66.9 Obesity, unspecified; Z86.711 Personal history of pulmonary embolism; Z86.718 Personal history of other venous thrombosis and embolism; Z79.01 Long term (current) use of anticoagulants; Z79.899 Other long term (current) drug therapy; Z88.8 Allergy status to other drugs, medicaments and biological substances; Z91.018 Allergy to other foods
CPT/HCPCS: 36415; 71010; 80048; 80053; 81001; 82150; 82962; 83690; 84484; 85025; 85610; 93005; 94664; 96361; 96374; 96375; 97802; 99285; A9270; J2270; J7040; 96376; 99284; G0378

== ENCOUNTER → 2016-08-31 | Outpatient (CLI) | payer MEDICAID | END | disposition home or self-care (01) | LOC: MW.CHNEURO 09:15 | PROVIDERS: ATTEND Psychiatry & Neurology Neuromuscular Medicine | DX: G40.209 Localization-related (focal) (partial) symptomatic epilepsy and epileptic syndromes with complex partial seizures, not intractable, without status epilepticus (principal) | CPT/HCPCS: 36415; 80175 ==

== ENCOUNTER → 2016-09-16 | Outpatient (CLI) | payer MEDICAID ==
--- NOTE | 2016-09-21 15:19 | ECHO ---
The echocardiogram report can be seen in this patient's EMR (Electronic Medical Record) in the Reports section. JOYCE
== END | disposition home or self-care (01) ==
LOC: MW.US 13:52
PROVIDERS: ATTEND Internal Medicine
DX: R07.9 Chest pain, unspecified (principal)
CPT/HCPCS: 93306

== ENCOUNTER 2017-04-15 18:10 | Emergency (ER) | payer MEDICAID ==
[2017-04-15] MEDS ORDERED: Lidocaine 1% 20 ML MDV INJECT ONE (18:42)
[2017-04-15] MEDS ORDERED: Bacitracin Oint 1 GM U/D Packet TOP ONE (18:45)
--- NOTE | 2017-04-15 19:06 | EDM.PDOC ---
ED HPI GENERAL MEDICAL PROBLEM - General Chief Complaint: Laceration Stated Complaint: SLICED LT FINGER BLOOD Time Seen by Provider: 04/15/17 18:50 Source of Information: Reports: Patient History Limitations: Reports: No Limitations - History of Present Illness INITIAL COMMENTS - FREE TEXT/NARRATIVE: HISTORY AND PHYSICAL: History of present illness: [Patient comes to the emergency room complaining of left index finger laceration. She was slicing into a package of tenderloin when the knife slipped cutting into her finger. This occurred a couple of hours ago but she did not want to drive herself to the ER as she admits she had 4 vodka drinks at the time of the incident. Her friend brings her to the ER today. She has no other complaints or concerns at this time. She takes Xarelto for recurring DVTs.] Review of systems: As per history of present illness and below otherwise all systems reviewed and negative. Past medical history: As per history of present illness and as reviewed below otherwise noncontributory. Surgical history: As per history of present illness and as reviewed below otherwise noncontributory. Social history: No reported history of drug or alcohol abuse. Family history: As per history of present illness and as reviewed below otherwise noncontributory. Physical exam: HEENT: Atraumatic, normocephalic. Extremities: 1.5cm laceration to dorsum of L index finger at MIP joint. See procedure note. Is otherwise atraumatic. Neurovascular unremarkable. Neuro: Awake, alert, oriented. Motor and sensory unremarkable throughout. Exam nonfocal. Impression: [Left Finger laceration] Plan: [Wound is closed without difficulty. See procedure note. Sutures out in 7 days. Wound care reviewed with patient. All questions are answered and concerns are addressed.] Definitive disposition and diagnosis as appropriate pending reevaluation and review of above. Left 2-Index finger Pain Score (Numeric/FACES): 9 - Related Data Allergies Allergy/AdvReac Type Severity Reaction Status Date / Time aspirin Allergy Ringing in Verified 04/15/17 18:23 the Ears banana Allergy Stomach Verified 04/15/17 18:23 Ache [place] Allergy Stomach Uncoded 04/15/17 18:23 Ache Cantalope Allergy Stomach Uncoded 04/15/17 18:23 Ache Home Meds: Home Meds Doxepin HCl [Doxepin] 300 mg PO BEDTIME 12/27/13 [History] Omeprazole 40 mg PO BID 11/10/14 [History] Albuterol [Proair HFA] 1 - 2 inhaler INH ASDIRECTED PRN 12/21/14 [History] Fluticasone/Salmeterol [Advair 250-50] 1 inh INH ASDIRECTED PRN 12/21/14 [ History] Rivaroxaban [Xarelto] 20 mg PO DAILY 02/16/16 [History] lamoTRIgine [Lamotrigine] 100 mg PO BID 02/16/16 [History] Past Medical History HEENT History: Reports: Other (See Below) Other HEENT History: TMJ "on Right" Cardiovascular History: Reports: Blood Clots/VTE/DVT, Other (See Below) Other Cardiovascular History: "Central Chest Pain" Respiratory History: Reports: Asthma Other Respiratory History: 40 yr history of smoking current use 1 pack/day Gastrointestinal History: Reports: None Genitourinary History: Reports: None [employer] History: Reports: Musculoskeletal History: Reports: Arthritis, Back Pain, Chronic, Fibromyalgia, Other (See Below) Other Musculoskeletal History: chronic shoulder pain Neurological History: Reports: Seizure Other Neuro History: TMJ Psychiatric History: Reports: Anxiety, Depression Other Psychiatric History: By diagnosis not shared in this interview Endocrine/Metabolic History: Reports: Obesity/BMI 30+ Hematologic History: Reports: Other (See Below) Other Hematologic History: DVT Immunologic History: Reports: None Oncologic (Cancer) History: Reports: None Dermatologic History: Reports: None - Infectious Disease History Infectious Disease History: Reports: Chicken Pox - Past Surgical History Head Surgeries/Procedures: Reports: None HEENT Surgical History: Reports: Tonsillectomy, Other (See Below) GI Surgical History: Reports: Hernia, Inguinal Female Surgical History: Reports: Section Musculoskeletal Surgical History: Reports: Other (See Below) Social & Family History - Family History Family Medical History: Noncontributory HEENT: Reports: None Cardiac: Reports: None Respiratory: Reports: None GI: Reports: None : Reports: None OBGYN: Reports: None Musculoskeletal: Reports: None Neurological: Reports: None Psychiatric: Reports: None Endocrine/Metabolic: Reports: None Hematologic: Reports: None Immunologic: Reports: None Dermatologic: Reports: None Oncologic: Reports: None - Tobacco Use Smoking Status *Q: Current Every Day Smoker Years of Tobacco use: 42 Packs/Tins Daily: 1 Used Tobacco, but Quit: No Second Hand Smoke Exposure: Yes - Caffeine Use Caffeine Use: Reports: Coffee Caffeine Use Comment: 4 cups per day - Alcohol Use Days Per Week of Alcohol Use: 4 Number of Drinks Per Day: 1 Total Drinks Per Week: 4 - Recreational Drug Use Recreational Drug Use: No Drug Use in Last 12 Months: No - Living Situation & Occupation Living situation: Reports: ED ROS GENERAL - Review of Systems Review Of Systems: ROS reveals no pertinent complaints other than HPI. ED EXAM, SKIN/RASH Exam: See Below ED SKIN PROCEDURES - Laceration/Wound Repair Left Dorsal Finger Lac/Wound length In cm: 1.5 Appearance: Subcutaneous, Clean Distal NVT: Neuro & Vascular Intact, No Tendon Injury Anesthetic Type: Local Local Anesthesia - Lidocaine (Xylocaine): 1% Plain Local Anesthetic Volume: 1cc Skin Prep: Chlorhexidine (Hibiciens), Isopropyl Alcohol (Alcohol), Saline, Sterile Drape Exploration/Debridement/Repair: Wound Explored, In a Bloodless Field, No Foreign Material Found Closed with: Sutures Suture Size: 4-0 # of Sutures: 3 Suture Type: Nylon, Interrupted Sterile Dressing Applied: Nurse Tetanus Status Addressed: Yes Complications: No Course - Vital Signs Last Recorded V/S: Last Vital Signs Temp 97.7 F 04/15/17 19:38 Pulse 74 04/15/17 19:38 Resp 20 04/15/17 19:38 BP 129/65 04/15/17 19:38 Pulse Ox 99 04/15/17 19:38 - Orders/Labs/Meds Meds: Medications Discontinued Medications Generic Name Dose Route Start Last Admin Trade Name Joceline PRN Reason Stop Dose Admin Bacitracin 1 dose 04/15/17 18:45 04/15/17 18:48 Bacitracin Oint 1 Gm TOP 04/15/17 18:46 1 dose ONETIME ONE Administration Lidocaine HCl 20 ml 04/15/17 18:42 04/15/17 18:45 Xylocaine 1% INJECT 04/15/17 18:43 20 ml ONETIME ONE Administration Departure - Departure Time of Disposition: 19:33 Disposition: Home, Self-Care 01 Condition: Good Clinical Impression: Laceration - Discharge Information Instructions: Laceration Care, Adult Referrals: PCP,Unknown [Primary Care Provider] - Forms: ED Department Discharge Additional Instructions: The following information is given to patients seen in the emergency department who are being discharged to home. This information is to outline your options for follow-up care. We provide all patients seen in our emergency department with a follow-up referral. The need for follow-up, as well as the timing and circumstances, are variable depending upon the specifics of your emergency department visit. If you don't have a primary care physician on staff, we will provide you with a referral. We always advise you to contact your personal physician following an emergency department visit to inform them of the circumstance of the visit and for follow-up with them and/or the need for any referrals to a consulting specialist. The emergency department will also refer you to a specialist when appropriate. This referral assures that you have the opportunity for follow-up care with a specialist. All of these measure are taken in an effort to provide you with optimal care, which includes your follow-up. Under all circumstances we always encourage you to contact your private physician who remains a resource for coordinating your care. When calling for follow-up care, please make the office aware that this follow-up is from your recent emergency room visit. If for any reason you are refused follow-up, please contact the [facility] emergency department at and asked to speak to the emergency department charge nurse. [facility] [address] [place] [id number] Follow-up with Dr. ko in 48-72 hours. Return to ER in 7 days to have sutures removed. Return to ER as needed as discussed.
[2017-04-15 19:41] VITALS: BP 129/65
== END 2017-04-15 19:39 | disposition home or self-care (01) ==
LOC: MW.ED 18:10
DX: S61.211A Laceration without foreign body of left index finger without damage to nail, initial encounter (principal); F17.210 Nicotine dependence, cigarettes, uncomplicated; Z88.6 Allergy status to analgesic agent; Z79.899 Other long term (current) drug therapy; W26.0XXA Contact with knife, initial encounter
CPT/HCPCS: 12001; 99282

== ENCOUNTER 2017-04-24 14:43 | Emergency (ER) | payer MEDICAID ==
[2017-04-24] MEDS ORDERED: Sodium Chloride 0.9% 1,000 ML IV ONE (15:01)
[2017-04-24] MEDS ORDERED: Ketorolac 30 MG/ML SDV IVPUSH ONE (15:01)
--- NOTE | 2017-04-24 15:14 | EDM.PDOC ---
ED HPI GENERAL MEDICAL PROBLEM - General Chief Complaint: General Stated Complaint: PAIN UNDER LT BREAST Time Seen by Provider: 04/24/17 15:11 Source of Information: Reports: Patient History Limitations: Reports: No Limitations - History of Present Illness INITIAL COMMENTS - FREE TEXT/NARRATIVE: History of present illness: [51-year-old female coming in with complaints of left upper quadrant pain. Patient indicates that it hurts so bad it feels like it's going to pop out, and now it is radiating around to her back. Patient indicates that it is unbearable progressively worse over the last week.] Review of systems: As per history of present illness and below otherwise all systems reviewed and negative. Past medical history: As per history of present illness and as reviewed below otherwise noncontributory. Surgical history: As per history of present illness and as reviewed below otherwise noncontributory. Social history: No reported history of drug or alcohol abuse. Family history: As per history of present illness and as reviewed below otherwise noncontributory. Physical exam: HEENT: Atraumatic, normocephalic, pupils reactive, negative for conjunctival pallor or scleral icterus, mucous membranes moist, throat clear, neck supple, nontender, trachea midline. Lungs: Clear to auscultation, breath sounds equal bilaterally, chest nontender. Heart: S1S2, regular, negative for clicks, rubs, or JVD. Abdomen: Protuberant abdomen that is soft with left-sided tenderness and guarding but otherwise negative for masses or hepatosplenomegaly. Negative for costovertebral tenderness. Pelvis: Stable nontender. Genitourinary: Deferred. Rectal: Deferred. Extremities: Atraumatic, negative for cords or calf pain. Neurovascular unremarkable. Neuro: Awake, alert, oriented. Cranial nerves II through XII unremarkable. Cerebellum unremarkable. Motor and sensory unremarkable throughout. Exam nonfocal. Diagnostics: [CBC, CMP, amylase, lipase, UA, urine hCG] Therapeutics: [] Impression: [#1 fatty liver] Plan: [Thiamine, folate, follow-up with PCP] Definitive disposition and diagnosis as appropriate pending reevaluation and review of above. under left breast Pain Score (Numeric/FACES): 5 - Related Data Allergies Allergy/AdvReac Type Severity Reaction Status Date / Time aspirin Allergy Ringing in Verified 04/24/17 14:55 the Ears banana Allergy Stomach Verified 04/24/17 14:55 Ache [place] Allergy Stomach Uncoded 04/24/17 14:55 Ache Cantalope Allergy Stomach Uncoded 04/24/17 14:55 Ache Home Meds: Home Meds Doxepin HCl [Doxepin] 300 mg PO BEDTIME 04/24/17 [History] Lisinopril 10 mg PO DAILY 04/24/17 [History] Rivaroxaban [Xarelto] 20 mg PO DAILY 04/24/17 [History] Topiramate 1 tab PO BID 04/24/17 [History] Past Medical History HEENT History: Reports: Other (See Below) Other HEENT History: TMJ "on Right" Cardiovascular History: Reports: Blood Clots/VTE/DVT, Other (See Below) Other Cardiovascular History: "Central Chest Pain" Respiratory History: Reports: Asthma Other Respiratory History: 40 yr history of smoking current use 1 pack/day Gastrointestinal History: Reports: None Genitourinary History: Reports: None 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: Musculoskeletal History: Reports: Arthritis, Back Pain, Chronic, Fibromyalgia, Other (See Below) Other Musculoskeletal History: chronic shoulder pain Neurological History: Reports: Seizure Other Neuro History: TMJ Psychiatric History: Reports: Anxiety, Depression Other Psychiatric History: By diagnosis not shared in this interview Endocrine/Metabolic History: Reports: Obesity/BMI 30+ Hematologic History: Reports: Other (See Below) Other Hematologic History: DVT Immunologic History: Reports: None Oncologic (Cancer) History: Reports: None Dermatologic History: Reports: None - Infectious Disease History Infectious Disease History: Reports: Chicken Pox - Past Surgical History Head Surgeries/Procedures: Reports: None HEENT Surgical History: Reports: Tonsillectomy, Other (See Below) GI Surgical History: Reports: Hernia, Inguinal Female Surgical History: Reports: Section Musculoskeletal Surgical History: Reports: Other (See Below) Social & Family History - Family History Family Medical History: Noncontributory HEENT: Reports: None Cardiac: Reports: None Respiratory: Reports: None GI: Reports: None : Reports: None OBGYN: Reports: None Musculoskeletal: Reports: None Neurological: Reports: None Psychiatric: Reports: None Endocrine/Metabolic: Reports: None Hematologic: Reports: None Immunologic: Reports: None Dermatologic: Reports: None Oncologic: Reports: None - Tobacco Use Smoking Status *Q: Current Every Day Smoker Years of Tobacco use: 35 Packs/Tins Daily: 1 Used Tobacco, but Quit: No Second Hand Smoke Exposure: Yes - Caffeine Use Caffeine Use: Reports: Coffee Caffeine Use Comment: 4 cups per day - Alcohol Use Days Per Week of Alcohol Use: 4 Number of Drinks Per Day: 4 Total Drinks Per Week: 16 - Recreational Drug Use Recreational Drug Use: No Drug Use in Last 12 Months: No - Living Situation & Occupation Living situation: Reports: ED ROS GENERAL - Review of Systems Review Of Systems: See Below (History of present illness) ED EXAM, GENERAL - Physical Exam Exam: See Below (See history of present illness) Course - Vital Signs Last Recorded V/S: Last Vital Signs Temp 36.3 C 04/24/17 14:53 Pulse 109 H 04/24/17 14:53 Resp 18 04/24/17 14:53 BP 145/85 H 04/24/17 14:53 Pulse Ox 94 L 04/24/17 14:53 - Orders/Labs/Meds Orders: Active Orders 24 hr Category Date Time Status Abdomen Pelvis w Cont [CT] Stat Exams 04/24/17 15:01 Ordered Labs: Laboratory Tests 04/24/17 04/24/17 04/24/17 Range/Units 15:11 15:11 15:23 WBC 9.22 (4.0-11.0) K/uL RBC 4.12 L (4.30-5.90) M/uL Hgb 14.2 (12.0-16.0) g/dL Hct 41.3 (36.0-46.0) % MCV 100.2 H (80.0-98.0) fL MCH 34.5 H (27.0-32.0) pg MCHC 34.4 (31.0-37.0) g/dL RDW Std Deviation 52.7 (28.0-62.0) fl RDW Coeff of Arleen 14 (11.0-15.0) % Plt Count 226 (150-400) K/uL MPV 10.20 (7.40-12.00) fL Neut % (Auto) 62.3 (48.0-80.0) % Lymph % (Auto) 25.7 (16.0-40.0) % Lassen % (Auto) 10.1 (0.0-15.0) % Eos % (Auto) 1.6 (0.0-7.0) % Baso % (Auto) 0.3 (0.0-1.5) % Neut # (Auto) 5.7 (1.4-5.7) K/uL Lymph # (Auto) 2.4 (0.6-2.4) K/uL Lassen # (Auto) 0.9 H (0.0-0.8) K/uL Eos # (Auto) 0.2 (0.0-0.7) K/uL Baso # (Auto) 0.0 (0.0-0.1) K/uL Nucleated RBC % 0.0 /100WBC Nucleated RBCs # 0 K/uL Sodium (136-146) mmol/L Potassium (3.5-5.1) mmol/L Chloride (98-110) mmol/L Carbon Dioxide (21-31) mmol/L BUN (6.0-23.0) mg/dL Creatinine (0.6-1.5) mg/dL Est Cr Clr Drug Dosing mL/min Estimated GFR (MDRD) ml/min Glucose (60-110) mg/dL Calcium (8.8-10.8) mg/dL Total Bilirubin (0.1-1.5) mg/dL AST (5-40) IU/L ALT (8-54) IU/L Alkaline Phosphatase (40-150) Troponin I (0.0-0.29) NG/ML Total Protein (6.0-8.0) g/dL Albumin (3.5-5.0) g/dL Globulin (2.0-3.5) g/dL Albumin/Globulin Ratio (1.3-2.8) Amylase (10-90) U/L Lipase (7-80) U/L Urine Color YELLOW Urine Appearance CLEAR Urine pH 6.5 (5.0-8.0) Ur Specific [place] <= 1.005 (1.001-1.035) Urine Protein NEGATIVE (NEGATIVE) mg/dL Urine Glucose (UA) NEGATIVE (NEGATIVE) mg/dL Urine Ketones NEGATIVE (NEGATIVE) mg/dL Urine Occult Blood NEGATIVE (NEGATIVE) Urine Nitrite NEGATIVE (NEGATIVE) Urine Bilirubin NEGATIVE (NEGATIVE) Urine Urobilinogen 0.2 (<2.0) EU/dL Ur Leukocyte Esterase NEGATIVE (NEGATIVE) Urine RBC NONE SEEN (0-2/HPF) Urine WBC NONE SEEN (0-5/HPF) Ur Epithelial Cells FEW (NONE-FEW) Calcium Oxalate Crystal FEW (NEGATIVE) Urine Bacteria RARE (NEGATIVE) Urine HCG, Qual NEGATIVE (NEGATIVE) 04/24/17 04/24/17 Range/Units 15:23 15:50 WBC (4.0-11.0) K/uL RBC (4.30-5.90) M/uL Hgb (12.0-16.0) g/dL Hct (36.0-46.0) % MCV (80.0-98.0) fL MCH (27.0-32.0) pg MCHC (31.0-37.0) g/dL RDW Std Deviation (28.0-62.0) fl RDW Coeff of Arleen (11.0-15.0) % Plt Count (150-400) K/uL MPV (7.40-12.00) fL Neut % (Auto) (48.0-80.0) % Lymph % (Auto) (16.0-40.0) % Lassen % (Auto) (0.0-15.0) % Eos % (Auto) (0.0-7.0) % Baso % (Auto) (0.0-1.5) % Neut # (Auto) (1.4-5.7) K/uL Lymph # (Auto) (0.6-2.4) K/uL Lassen # (Auto) (0.0-0.8) K/uL Eos # (Auto) (0.0-0.7) K/uL Baso # (Auto) (0.0-0.1) K/uL Nucleated RBC % /100WBC Nucleated RBCs # K/uL Sodium 137 (136-146) mmol/L Potassium 3.8 (3.5-5.1) mmol/L Chloride 103 (98-110) mmol/L Carbon Dioxide 23 (21-31) mmol/L BUN 13 (6.0-23.0) mg/dL Creatinine 0.9 (0.6-1.5) mg/dL Est Cr Clr Drug Dosing 57.17 mL/min Estimated GFR (MDRD) > 60.0 ml/min Glucose 96 (60-110) mg/dL Calcium 10.1 (8.8-10.8) mg/dL Total Bilirubin 0.7 (0.1-1.5) mg/dL AST 53 H (5-40) IU/L ALT 51 (8-54) IU/L Alkaline Phosphatase 69 (40-150) Troponin I < 0.10 (0.0-0.29) NG/ML Total Protein 8.1 H (6.0-8.0) g/dL Albumin 4.5 (3.5-5.0) g/dL Globulin 3.6 H (2.0-3.5) g/dL Albumin/Globulin Ratio 1.3 (1.3-2.8) Amylase 37 (10-90) U/L Lipase 32 (7-80) U/L Urine Color Urine Appearance Urine pH (5.0-8.0) Ur Specific [place] (1.001-1.035) Urine Protein (NEGATIVE) mg/dL Urine Glucose (UA) (NEGATIVE) mg/dL Urine Ketones (NEGATIVE) mg/dL Urine Occult Blood (NEGATIVE) Urine Nitrite (NEGATIVE) Urine Bilirubin (NEGATIVE) Urine Urobilinogen (<2.0) EU/dL Ur Leukocyte Esterase (NEGATIVE) Urine RBC (0-2/HPF) Urine WBC (0-5/HPF) Ur Epithelial Cells (NONE-FEW) Calcium Oxalate Crystal (NEGATIVE) Urine Bacteria (NEGATIVE) Urine HCG, Qual (NEGATIVE) Meds: Medications Discontinued Medications Generic Name Dose Route Start Last Admin Trade Name Freq PRN Reason Stop Dose Admin Sodium Chloride 1,000 mls @ 999 mls/hr 04/24/17 15:01 04/24/17 15:25 Normal Saline IV 04/24/17 16:01 999 mls/hr .Bolus ONE Administration Iopamidol 100 ml 04/24/17 16:21 04/24/17 16:21 Isovue Multipack-370 (76%) IVPUSH 04/24/17 16:22 100 ml ONETIME STA Administration Ketorolac Tromethamine 30 mg 04/24/17 15:01 04/24/17 15:25 Toradol IVPUSH 04/24/17 15:02 30 mg ONETIME ONE Administration Departure - Departure Time of Disposition: 16:52 Disposition: Home, Self-Care 01 Condition: Good Clinical Impression: Abdominal pain - Discharge Information Referrals: José Miguel Almodovar MD [Primary Care Provider] - Forms: ED Department Discharge Additional Instructions: The following information is given to patients seen in the emergency department who are being discharged to home. This information is to outline your options for follow-up care. We provide all patients seen in our emergency department with a follow-up referral. The need for follow-up, as well as the timing and circumstances, are variable depending upon the specifics of your emergency department visit. If you don't have a primary care physician on staff, we will provide you with a referral. We always advise you to contact your personal physician following an emergency department visit to inform them of the circumstance of the visit and for follow-up with them and/or the need for any referrals to a consulting specialist. The emergency department will also refer you to a specialist when appropriate. This referral assures that you have the opportunity for follow-up care with a specialist. All of these measure are taken in an effort to provide you with optimal care, which includes your follow-up. Under all circumstances we always encourage you to contact your private physician who remains a resource for coordinating your care. When calling for follow-up care, please make the office aware that this follow-up is from your recent emergency room visit. If for any reason you are refused follow-up, please contact the [facility] Emergency Department at and asked to speak to the emergency department charge nurse. Follow-up with primary care provider once 2 days Return to ED as needed as discussed - My Orders Last 24 Hours: My Active Orders 04/24/17 15:01 Abdomen Pelvis w Cont [CT] Stat - Assessment/Plan Last 24 Hours: My Active Orders 04/24/17 15:01 Abdomen Pelvis w Cont [CT] Stat
[2017-04-24 15:52] LABS: CHLORIDE,CL 103 mmol/L (98-110); SODIUM,NA 137 mmol/L (136-146)
[2017-04-24] MEDS ORDERED: Iopamidol 755 MG/ML 500 ML Multipack Bottle IVPUSH STA (16:21)
[2017-04-24] MEDS ORDERED: Thiamine 100 MG in Sodium Chloride 0.9% 100 ML IV ONE (16:44)
[2017-04-24] MEDS ORDERED: Folic Acid 1 MG Tab PO ONE (16:45)
[2017-04-24 17:48] VITALS: BP 148/84
--- NOTE | 2017-04-26 13:12 | CT ---
EXAM DATE: 04/24/17 PATIENT'S AGE: 51 Patient: BELLE CARREON Facility: [place], [place] Site . Site : [id number] Study: CT Abdomen/Pelvis W MARA [id number]/11/2017 4:29:32 PM Ordering Physician: Doctor Manning Final Report: Sharp pain under left breast NT back for 1 week. Technique: Contrast-enhanced CT abdomen and noncontrast CT abdomen and pelvis a contrast- enhanced CT abdomen pelvis with 100 mL Isovue-370. Coronal sagittal re- formatted images obtained. Comparison: CT abdomen pelvis 03/03/2016. Findings: Heart size normal. No pericardial effusion. No pleural effusion. Mild basilar atelectasis. Gallbladder, pancreas, adrenal glands, spleen appears unremarkable. Symmetric enhancement of both kidneys which are otherwise unremarkable. No abdominal aortic aneurysm. Small fat containing umbilical hernia. Urinary bladder is unremarkable. Diverticulosis. No inflammatory change .osseous structures are unremarkable. Impression: 1. No acute findings in the abdomen pelvis. 2. Fatty liver. 3. Diverticulosis. Please note that all CT scans at this facility use dose modulation, iterative reconstruction, and/or weight-based dosing when appropriate to reduce radiation dose to as low as reasonably achievable. Dictated by Carline Alanis MD @ Apr 24 2017 4:37PM (Electronic Signature) Report Signed by Proxy. JOYCE
== END 2017-04-24 17:39 | disposition home or self-care (01) ==
LOC: MW.ED 14:43
DX: K76.0 Fatty (change of) liver, not elsewhere classified (principal); F17.210 Nicotine dependence, cigarettes, uncomplicated; Z88.6 Allergy status to analgesic agent; Z79.899 Other long term (current) drug therapy
CPT/HCPCS: 36415; 74177; 80053; 81001; 81025; 82150; 83690; 84484; 85025; 96361; 96365; 96375; 99284; A9270; J1885; J3411; J7030; J7040; Q9967

== ENCOUNTER 2017-09-09 10:47 | Emergency (ER) | payer BC, MEDICAID ==
--- NOTE | 2017-09-09 11:07 | EDM.PDOC ---
ED HPI GENERAL MEDICAL PROBLEM - General Chief Complaint: Lower Extremity Injury/Pain Stated Complaint: RT CALF HURTS Time Seen by Provider: 09/09/17 10:55 Source of Information: Reports: Patient History Limitations: Reports: No Limitations - History of Present Illness INITIAL COMMENTS - FREE TEXT/NARRATIVE: HISTORY AND PHYSICAL: History of present illness: Patient is a 51-year-old female who presents to the emergency room today with complaints of right calf pain. She has a long-standing history of DVT and PEs which she has been on Coumadin and most recently several toe. She is concerned she has a blood clot to her right lower extremity. States she has been taking her medication as directed but has a "cramping tight pain" in her right posterior calf. She denies any fever, chills, shortness of breath or chest pain. She denies any abdominal pain, nausea, vomiting or diarrhea/constipation. Past medical history of PE, DVT, asthma, fibromyalgia, anxiety and depression. She has a long-standing smoker. Has been on Coumadin for 5+ years but switched to several toe within the last year. Review of systems: As per history of present illness and below otherwise all systems reviewed and negative. Past medical history: As per history of present illness and as reviewed below otherwise noncontributory. Surgical history: As per history of present illness and as reviewed below otherwise noncontributory. Social history: No reported history of drug or alcohol abuse. Family history: As per history of present illness and as reviewed below otherwise noncontributory. Physical exam: General: HEENT: Atraumatic, normocephalic, pupils equal and reactive bilaterally, negative for conjunctival pallor or scleral icterus, mucous membranes moist, throat clear, neck supple, nontender, trachea midline. No drooling or trismus noted. No meningeal signs Lungs: Clear to auscultation, breath sounds equal bilaterally, chest nontender. Heart: S1S2, regular rate and rhythm without overt murmur Abdomen: Soft, nondistended, nontender. Negative for masses or hepatosplenomegaly. Negative for costovertebral tenderness. Pelvis: Stable nontender. Genitourinary: Deferred. Rectal: Deferred. Skin: Intact, warm, dry. No lesions or rashes noted. There is no localized area of erythema, soft tissue swelling or bruising. Extremities: Atraumatic, moves all extremities per self without difficulty or deficits. Mild pain to the right calf with palpation and flexion. Pedal pulses bilaterally. Capillary refill less than 3 seconds to distal lower extremities bilaterally. Neurovascular unremarkable. Neuro: Awake, alert, oriented. Cranial nerves II through XII unremarkable. Cerebellum unremarkable. Motor and sensory unremarkable throughout. Exam nonfocal. Notes: Patient states she has been having anxiety related to the muscle cramping in her right calf. Reported she wanted to be seen at the clinic today but was told she needed to come to the emergency room. States "all I wanted was an ultrasound ". Vital signs are stable and have been reviewed by me. We'll wait for lab and ultrasound report. U/S shows no evidence of DVT, A 3cm fluid collection consistent with a Alatorre's Cyst. Her D.Dimer is elevated at 0.95. She states she was seen in the clinic about 2 weeks ago for a cough and was given a "steriod inhaler" which had helped her cough symtoms. Will order a CTA. CTA showed no evidence of a PE. Did discuss results with patient. Encouraged her to follow up with her primary caregiver. Supportive care measures were reviewed. She voices understanding and is agreeable to plan of care. Denies any questions at this time. Diagnostics: CBC, CMP, INR, d-dimer, venous Doppler right lower extremity, CTA Therapeutics: [] Impression: Alatorre's Cyst, Right Muscle Cramping Plan: 1. Your labs and scans were within normal limits. The ultrasound did show a Alatorre's cyst to the right lower extremity. 2. Please follow-up with your primary caregiver as needed. Return to the ED as needed and as discussed. Definitive disposition and diagnosis as appropriate pending reevaluation and review of above. Right Lower Leg Pain Score (Numeric/FACES): 7 - Related Data Allergies Allergy/AdvReac Type Severity Reaction Status Date / Time aspirin Allergy Ringing in Verified 09/09/17 11:04 the Ears banana Allergy Stomach Verified 09/09/17 11:04 Ache [place] Allergy Stomach Uncoded 09/09/17 11:04 Ache [place] Allergy Stomach Uncoded 09/09/17 11:04 Ache Home Meds: Home Meds Doxepin HCl [Doxepin] 300 mg PO BEDTIME 04/24/17 [History] Lisinopril 10 mg PO DAILY 04/24/17 [History] Rivaroxaban [Xarelto] 20 mg PO DAILY 04/24/17 [History] Topiramate 100 mg PO BID 04/24/17 [History] Thiamine [Vitamin B-1] 1 tab DAILY 09/09/17 [History] Past Medical History HEENT History: Reports: Other (See Below) Other HEENT History: TMJ "on Right" Cardiovascular History: Reports: Blood Clots/VTE/DVT, Other (See Below) Other Cardiovascular History: "Central Chest Pain" Respiratory History: Reports: Asthma, Bronchitis, Recurrent Other Respiratory History: 40 yr history of smoking current use 1 pack/day Gastrointestinal History: Reports: None Genitourinary History: Reports: None [employer] History: Reports: Musculoskeletal History: Reports: Arthritis, Back Pain, Chronic, Fibromyalgia, Other (See Below) Other Musculoskeletal History: chronic shoulder pain Neurological History: Reports: Seizure Other Neuro History: TMJ Psychiatric History: Reports: Anxiety, Depression Other Psychiatric History: By diagnosis not shared in this interview Endocrine/Metabolic History: Reports: Obesity/BMI 30+ Hematologic History: Reports: Other (See Below) Other Hematologic History: DVT Immunologic History: Reports: None Oncologic (Cancer) History: Reports: None Dermatologic History: Reports: None - Infectious Disease History Infectious Disease History: Reports: Chicken Pox - Past Surgical History Head Surgeries/Procedures: Reports: None HEENT Surgical History: Reports: Other (See Below), Tonsillectomy GI Surgical History: Reports: Appendectomy, Hernia, Inguinal Female Surgical History: Reports: Section Musculoskeletal Surgical History: Reports: Other (See Below) Social & Family History - Family History Family Medical History: Noncontributory HEENT: Reports: None Cardiac: Reports: None Respiratory: Reports: None GI: Reports: None : Reports: None OBGYN: Reports: None Musculoskeletal: Reports: None Neurological: Reports: None Psychiatric: Reports: None Endocrine/Metabolic: Reports: None Hematologic: Reports: None Immunologic: Reports: None Dermatologic: Reports: None Oncologic: Reports: None - Tobacco Use Smoking Status *Q: Current Every Day Smoker Years of Tobacco use: 30 Packs/Tins Daily: 1 Used Tobacco, but Quit: No Second Hand Smoke Exposure: Yes - Caffeine Use Caffeine Use: Reports: Coffee Caffeine Use Comment: 4 cups per day - Alcohol Use Days Per Week of Alcohol Use: 4 Number of Drinks Per Day: 4 Total Drinks Per Week: 16 - Recreational Drug Use Recreational Drug Use: No Drug Use in Last 12 Months: No - Living Situation & Occupation Living situation: Reports: Review of Systems - Review of Systems Review Of Systems: ROS reveals no pertinent complaints other than HPI. ED EXAM, GENERAL - Physical Exam Exam: See Below (See dictation) Course - Vital Signs Last Recorded V/S: Last Vital Signs Temp 95.6 F 09/09/17 10:52 Pulse 122 H 09/09/17 10:52 Resp 20 09/09/17 10:52 BP 144/98 H 09/09/17 10:52 Pulse Ox 99 09/09/17 10:52 - Orders/Labs/Meds Orders: Active Orders 24 hr Category Date Time Status CTA Chest W WO Contrast [Ang Chest] [CT] Stat Exams 09/09/17 11:57 Taken Labs: Laboratory Tests 09/09/17 09/09/17 09/09/17 Range/Units 11:09 11:09 11:09 WBC 8.96 (4.0-11.0) K/uL RBC 4.30 (4.30-5.90) M/uL Hgb 14.6 (12.0-16.0) g/dL Hct 43.2 (36.0-46.0) % MCV 100.5 H (80.0-98.0) fL MCH 34.0 H (27.0-32.0) pg MCHC 33.8 (31.0-37.0) g/dL RDW Std Deviation 52.3 (28.0-62.0) fl RDW Coeff of Arleen 14 (11.0-15.0) % Plt Count 292 (150-400) K/uL MPV 9.50 (7.40-12.00) fL Neut % (Auto) 63.0 (48.0-80.0) % Lymph % (Auto) 24.3 (16.0-40.0) % [place] % (Auto) 10.3 (0.0-15.0) % Eos % (Auto) 1.8 (0.0-7.0) % Baso % (Auto) 0.6 (0.0-1.5) % Neut # (Auto) 5.7 (1.4-5.7) K/uL Lymph # (Auto) 2.2 (0.6-2.4) K/uL [place] # (Auto) 0.9 H (0.0-0.8) K/uL Eos # (Auto) 0.2 (0.0-0.7) K/uL Baso # (Auto) 0.1 (0.0-0.1) K/uL Nucleated RBC % 0.0 /100WBC Nucleated RBCs # 0 K/uL INR 1.12 D-Dimer, Quantitative (0.0-0.52) mg/LFEU Sodium 135 L (136-145) mmol/L Potassium 4.5 (3.5-5.1) mmol/L Chloride 99 (98-107) mmol/L Carbon Dioxide 25.5 (21.0-32.0) mmol/L BUN 13 (7.0-18.0) mg/dL Creatinine 0.9 (0.6-1.0) mg/dL Est Cr Clr Drug Dosing 57.17 mL/min Estimated GFR (MDRD) > 60.0 ml/min Glucose 131 H (74-106) mg/dL Calcium 9.3 (8.5-10.1) mg/dL Total Bilirubin 0.6 (0.2-1.0) mg/dL AST 39 H (15-37) IU/L ALT 47 (14-63) IU/L Alkaline Phosphatase 68 (46-116) U/L Total Protein 7.8 (6.4-8.2) g/dL Albumin 3.9 (3.4-5.0) g/dL Globulin 3.9 H (2.0-3.5) g/dL Albumin/Globulin Ratio 1.0 L (1.3-2.8) 09/09/17 Range/Units 11:09 WBC (4.0-11.0) K/uL RBC (4.30-5.90) M/uL Hgb (12.0-16.0) g/dL Hct (36.0-46.0) % MCV (80.0-98.0) fL MCH (27.0-32.0) pg MCHC (31.0-37.0) g/dL RDW Std Deviation (28.0-62.0) fl RDW Coeff of Arleen (11.0-15.0) % Plt Count (150-400) K/uL MPV (7.40-12.00) fL Neut % (Auto) (48.0-80.0) % Lymph % (Auto) (16.0-40.0) % [place] % (Auto) (0.0-15.0) % Eos % (Auto) (0.0-7.0) % Baso % (Auto) (0.0-1.5) % Neut # (Auto) (1.4-5.7) K/uL Lymph # (Auto) (0.6-2.4) K/uL [place] # (Auto) (0.0-0.8) K/uL Eos # (Auto) (0.0-0.7) K/uL Baso # (Auto) (0.0-0.1) K/uL Nucleated RBC % /100WBC Nucleated RBCs # K/uL INR D-Dimer, Quantitative 0.95 H (0.0-0.52) mg/LFEU Sodium (136-145) mmol/L Potassium (3.5-5.1) mmol/L Chloride (98-107) mmol/L Carbon Dioxide (21.0-32.0) mmol/L BUN (7.0-18.0) mg/dL Creatinine (0.6-1.0) mg/dL Est Cr Clr Drug Dosing mL/min Estimated GFR (MDRD) ml/min Glucose (74-106) mg/dL Calcium (8.5-10.1) mg/dL Total Bilirubin (0.2-1.0) mg/dL AST (15-37) IU/L ALT (14-63) IU/L Alkaline Phosphatase (46-116) U/L Total Protein (6.4-8.2) g/dL Albumin (3.4-5.0) g/dL Globulin (2.0-3.5) g/dL Albumin/Globulin Ratio (1.3-2.8) Meds: Medications Discontinued Medications Generic Name Dose Route Start Last Admin Trade Name Freq PRN Reason Stop Dose Admin Iopamidol 50 ml 09/09/17 12:52 09/09/17 13:04 Isovue Multipack-370 (76%) IVPUSH 09/09/17 12:53 50 ml ONETIME ONE Administration Departure - Departure Time of Disposition: 13:37 Disposition: Home, Self-Care 01 Clinical Impression: Muscle cramping Alatorre's cyst of knee Qualifiers: Laterality: right Qualified Code(s): M71.21 - Synovial cyst of popliteal space [Alatorre], right knee - Discharge Information Instructions: Muscle Cramps and Spasms, [id number], Alatorre Cyst Referrals: PCP,None [Primary Care Provider] - Forms: ED Department Discharge Additional Instructions: The following information is given to patients seen in the emergency department who are being discharged to home. This information is to outline your options for follow-up care. We provide all patients seen in our emergency department with a follow-up referral. The need for follow-up, as well as the timing and circumstances, are variable depending upon the specifics of your emergency department visit. If you don't have a primary care physician on staff, we will provide you with a referral. We always advise you to contact your personal physician following an emergency department visit to inform them of the circumstance of the visit and for follow-up with them and/or the need for any referrals to a consulting specialist. The emergency department will also refer you to a specialist when appropriate. This referral assures that you have the opportunity for follow-up care with a specialist. All of these measure are taken in an effort to provide you with optimal care, which includes your follow-up. Under all circumstances we always encourage you to contact your private physician who remains a resource for coordinating your care. When calling for follow-up care, please make the office aware that this follow-up is from your recent emergency room visit. If for any reason you are refused follow-up, please contact the [facility] at and asked to speak to the emergency department charge nurse. [facility] [address] [place] [id number] 1. Your labs and scans were within normal limits. The ultrasound did show a Alatorre's cyst to the right lower extremity. 2. Please follow-up with your primary caregiver as needed. Return to the ED as needed and as discussed. - My Orders Last 24 Hours: My Active Orders 09/09/17 11:57 CTA Chest W WO Contrast [Ang Chest] [CT] Stat - Assessment/Plan Last 24 Hours: My Active Orders 09/09/17 11:57 CTA Chest W WO Contrast [Ang Chest] [CT] Stat
--- NOTE | 2017-09-09 11:46 | US ---
ULTRASOUND EXAMINATION OF the right lower extremity WITH DOPPLER HISTORY: Pain FINDINGS: Examination of the right leg was performed from the groin to the calf region. All visualized segment s including common femoral, proximal greater saphenous, superficial femoral, popliteal and calf veins appear patent with good compressibility and augmentation. There is no evidence of deep vein thrombo sis. There is a 3 cm fluid collection within the popliteal fossa consistent with a Alatorre's cyst. IMPRESSION: No evidence of a DVT.
[2017-09-09 11:50] LABS: CHLORIDE,CL 99 mmol/L (98-107); SODIUM,NA 135 mmol/L (136-145)
[2017-09-09] MEDS ORDERED: Iopamidol 755 MG/ML 200 ML Multipack Bottle IVPUSH ONE (12:52)
--- NOTE | 2017-09-09 13:48 | CT ---
EXAMINATION: CTA chest HISTORY: Elevated d-dimer COMPARISON: 10/10/2014 TECHNIQUE: Axial CT images obtained through the chest following the administration of 50 mL of Isovue -370 left antecubital fossa. Coronal and sagittal reconstructions obtained. FINDINGS: Emphysematous changes are noted. No focal consolidation or pleural effusion. Mild dependent atelectasis. The heart is normal in size without a pericardial effusion. The thoracic aorta is chica l in caliber. Main and central pulmonary arteries appear patent. Central airways are clear. No axilla ry lymphadenopathy. No bulky mediastinal or hilar lymphadenopathy. No axillary lymphadenopathy. No suspicious osseous abnormalities identified. IMPRESSION: 1. No pulmonary embolism identified. 2. No acute cardiopulmonary findings. 3. Mild pulmonary emphysema.
[2017-09-09 14:25] VITALS: BP 143/88
== END 2017-09-09 13:51 | disposition home or self-care (01) ==
LOC: MW.ED 10:47
DX: M71.21 Synovial cyst of popliteal space [Baker], right knee (principal); R25.2 Cramp and spasm; F17.210 Nicotine dependence, cigarettes, uncomplicated; Z88.6 Allergy status to analgesic agent; Z91.018 Allergy to other foods; Z79.899 Other long term (current) drug therapy; Z86.718 Personal history of other venous thrombosis and embolism; Z00.00 Encounter for general adult medical examination without abnormal findings; E03.9 Hypothyroidism, unspecified
CPT/HCPCS: 36415; 71275; 80053; 82040; 84439; 84442; 84443; 84481; 85025; 85379; 85610; 93971; 99284; Q9967; 99283

== ENCOUNTER 2017-12-17 15:25 | Emergency (ER) | payer BC ==
--- NOTE | 2017-12-17 15:27 | EDM.PDOC ---
ED HPI GENERAL MEDICAL PROBLEM - General Stated Complaint: AMB Time Seen by Provider: 12/17/17 15:26 Source of Information: Reports: Patient, EMS - History of Present Illness INITIAL COMMENTS - FREE TEXT/NARRATIVE: HISTORY AND PHYSICAL: History of present illness: [Patient with history of seizure disorder presents by EMS Ur shopping at a local grocery store and had a seizure following hitting her head on the floor she is on 0 though due to DVT history, sure arrives alert maintaining her own airway Glascow coma scale 15 She complains of right elbow pain 4 out of 10 nonradiating She notes that she recently was switched from topiramate to valproic acid in neurology, she has been on the valproic acid for 1 week taken to 50 mg by mouth twice a day ] Review of systems: As per history of present illness and below otherwise all systems reviewed and negative. Past medical history: As per history of present illness and as reviewed below otherwise noncontributory. Surgical history: As per history of present illness and as reviewed below otherwise noncontributory. Social history: No reported history of drug or alcohol abuse. Family history: As per history of present illness and as reviewed below otherwise noncontributory. Physical exam: HEENT: Atraumatic, normocephalic, pupils reactive, negative for conjunctival pallor or scleral icterus, mucous membranes moist, throat clear, neck supple, nontender, trachea midline. Lungs: Clear to auscultation, breath sounds equal bilaterally, chest nontender. Heart: S1S2, regular, negative for clicks, rubs, or JVD. Abdomen: Soft, nondistended, nontender. Negative for masses or hepatosplenomegaly. Negative for costovertebral tenderness. Pelvis: Stable nontender. Genitourinary: Deferred. Rectal: Deferred. Extremities: Atraumatic, negative for cords or calf pain. Neurovascular unremarkable. Neuro: Awake, alert, oriented. Cranial nerves II through XII unremarkable. Cerebellum unremarkable. Motor and sensory unremarkable throughout. Exam nonfocal. Diagnostics: [CBC CMP UA troponin INR valproic acid level EKG chest [address] no contrast ] Therapeutics: [Valproic acid increased to 500 mg by mouth twice a day] Follow-up with Dr. Hernandez Impression: [Subtherapeutic valproic acid Seizure disorder at baseline Contusion right elbow] Definitive disposition and diagnosis as appropriate pending reevaluation and review of above. elbow Pain Score (Numeric/FACES): 3 - Related Data Allergies Allergy/AdvReac Type Severity Reaction Status Date / Time aspirin Allergy Ringing in Verified 12/17/17 15:29 the Ears banana Allergy Stomach Verified 12/17/17 15:29 Ache [place] Allergy Stomach Uncoded 09/09/17 11:04 Ache [place] Allergy Stomach Uncoded 09/09/17 11:04 Ache Home Meds: Home Meds Doxepin HCl [Doxepin] 100 mg PO BEDTIME 04/24/17 [History] Lisinopril 20 mg PO DAILY 04/24/17 [History] Rivaroxaban [Xarelto] 20 mg PO DAILY 04/24/17 [History] Topiramate 25 mg PO BID 04/24/17 [History] Divalproex Sodium 250 mg PO BID 12/17/17 [History] Fluticasone Propionate [Flovent] 110 mcg INH ASDIRECTED 12/17/17 [History] Omeprazole 40 mg PO BID 12/17/17 [History] Past Medical History HEENT History: Reports: Other (See Below) Other HEENT History: TMJ "on Right" Cardiovascular History: Reports: Blood Clots/VTE/DVT, Other (See Below) Other Cardiovascular History: "Central Chest Pain" Respiratory History: Reports: Asthma, Bronchitis, Recurrent Other Respiratory History: 40 yr history of smoking current use 1 pack/day Gastrointestinal History: Reports: None Genitourinary History: Reports: None [employer] History: Reports: Musculoskeletal History: Reports: Arthritis, Back Pain, Chronic, Fibromyalgia, Other (See Below) Other Musculoskeletal History: chronic shoulder pain Neurological History: Reports: Seizure Other Neuro History: TMJ Psychiatric History: Reports: Anxiety, Depression Other Psychiatric History: By diagnosis not shared in this interview Endocrine/Metabolic History: Reports: Obesity/BMI 30+ Hematologic History: Reports: Other (See Below) Other Hematologic History: DVT Immunologic History: Reports: None Oncologic (Cancer) History: Reports: None Dermatologic History: Reports: None - Infectious Disease History Infectious Disease History: Reports: Chicken Pox - Past Surgical History Head Surgeries/Procedures: Reports: None HEENT Surgical History: Reports: Other (See Below), Tonsillectomy GI Surgical History: Reports: Appendectomy, Hernia, Inguinal Female Surgical History: Reports: Section Musculoskeletal Surgical History: Reports: Other (See Below) Social & Family History - Family History Family Medical History: Noncontributory HEENT: Reports: None Cardiac: Reports: None Respiratory: Reports: None GI: Reports: None : Reports: None OBGYN: Reports: None Musculoskeletal: Reports: None Neurological: Reports: None Psychiatric: Reports: None Endocrine/Metabolic: Reports: None Hematologic: Reports: None Immunologic: Reports: None Dermatologic: Reports: None Oncologic: Reports: None - Caffeine Use Caffeine Use: Reports: Coffee Caffeine Use Comment: 4 cups per day - Living Situation & Occupation Living situation: Reports: ED ROS GENERAL - Review of Systems Review Of Systems: See Below ED EXAM, GENERAL - Physical Exam Exam: See Below Course - Vital Signs Last Recorded V/S: Last Vital Signs Temp 96.8 F 12/17/17 15:32 Pulse 109 H 12/17/17 15:32 Resp 18 12/17/17 15:32 BP 150/89 H 12/17/17 15:32 Pulse Ox 92 L 12/17/17 15:32 - Orders/Labs/Meds Orders: Active Orders 24 hr Category Date Time Status EKG Documentation Completion [RC] STAT Care 12/17/17 15:27 Active Chest 1V Frontal [CR] Stat Exams 12/17/17 15:27 Taken Elbow Min 3V Rt [CR] Stat Exams 12/17/17 15:27 Taken Head wo Cont [CT] Stat Exams 12/17/17 15:27 Taken UA W/MICROSCOPIC [URIN] Stat Lab 12/17/17 15:27 Ordered Sodium Chloride 0.9% [Normal Saline] 1,000 ml Med 12/17/17 15:30 Active IV STAT Medication Orders Sodium Chloride (Normal Saline) 1,000 mls @ 125 mls/hr IV STAT LINDSAY Last Admin: 12/17/17 15:42 Dose: 125 mls/hr Labs: Laboratory Tests 12/17/17 12/17/17 12/17/17 Range/Units 15:38 15:38 15:38 WBC 8.31 (4.0-11.0) K/uL RBC 3.99 L (4.30-5.90) M/uL Hgb 13.9 (12.0-16.0) g/dL Hct 40.7 (36.0-46.0) % MCV 102.0 H (80.0-98.0) fL MCH 34.8 H (27.0-32.0) pg MCHC 34.2 (31.0-37.0) g/dL RDW Std Deviation 48.2 (28.0-62.0) fl RDW Coeff of Arleen 13 (11.0-15.0) % Plt Count 235 (150-400) K/uL MPV 10.10 (7.40-12.00) fL Neut % (Auto) 62.1 (48.0-80.0) % Lymph % (Auto) 22.7 (16.0-40.0) % [facility] % (Auto) 13.5 (0.0-15.0) % Eos % (Auto) 1.3 (0.0-7.0) % Baso % (Auto) 0.4 (0.0-1.5) % Neut # (Auto) 5.2 (1.4-5.7) K/uL Lymph # (Auto) 1.9 (0.6-2.4) K/uL [facility] # (Auto) 1.1 H (0.0-0.8) K/uL Eos # (Auto) 0.1 (0.0-0.7) K/uL Baso # (Auto) 0.0 (0.0-0.1) K/uL Nucleated RBC % 0.0 /100WBC Nucleated RBCs # 0 K/uL INR 1.12 Sodium 140 (136-145) mmol/L Potassium 4.2 (3.5-5.1) mmol/L Chloride 103 (98-107) mmol/L Carbon Dioxide 26.6 (21.0-32.0) mmol/L BUN 8 (7.0-18.0) mg/dL Creatinine 1.1 H (0.6-1.0) mg/dL Est Cr Clr Drug Dosing 46.24 mL/min Estimated GFR (MDRD) 51.8 ml/min Glucose 140 H (74-106) mg/dL Calcium 9.1 (8.5-10.1) mg/dL Total Bilirubin 0.2 (0.2-1.0) mg/dL AST 49 H (15-37) IU/L ALT 59 (14-63) IU/L Alkaline Phosphatase 72 (46-116) U/L Troponin I < 0.050 (0.000-0.056) ng/mL Total Protein 7.1 (6.4-8.2) g/dL Albumin 3.6 (3.4-5.0) g/dL Globulin 3.5 (2.0-3.5) g/dL Albumin/Globulin Ratio 1.0 L (1.3-2.8) Valproic Acid (50.0-100.0) ug/mL 12/17/17 Range/Units 15:38 WBC (4.0-11.0) K/uL RBC (4.30-5.90) M/uL Hgb (12.0-16.0) g/dL Hct (36.0-46.0) % MCV (80.0-98.0) fL MCH (27.0-32.0) pg MCHC (31.0-37.0) g/dL RDW Std Deviation (28.0-62.0) fl RDW Coeff of Arleen (11.0-15.0) % Plt Count (150-400) K/uL MPV (7.40-12.00) fL Neut % (Auto) (48.0-80.0) % Lymph % (Auto) (16.0-40.0) % [facility] % (Auto) (0.0-15.0) % Eos % (Auto) (0.0-7.0) % Baso % (Auto) (0.0-1.5) % Neut # (Auto) (1.4-5.7) K/uL Lymph # (Auto) (0.6-2.4) K/uL [facility] [place] [facility] # (Auto) (0.0-0.8) K/uL Eos # (Auto) (0.0-0.7) K/uL Baso # (Auto) (0.0-0.1) K/uL Nucleated RBC % /100WBC Nucleated RBCs # K/uL INR Sodium (136-145) mmol/L Potassium (3.5-5.1) mmol/L Chloride (98-107) mmol/L Carbon Dioxide (21.0-32.0) mmol/L BUN (7.0-18.0) mg/dL Creatinine (0.6-1.0) mg/dL Est Cr Clr Drug Dosing mL/min Estimated GFR (MDRD) ml/min Glucose (74-106) mg/dL Calcium (8.5-10.1) mg/dL Total Bilirubin (0.2-1.0) mg/dL AST (15-37) IU/L ALT (14-63) IU/L Alkaline Phosphatase (46-116) U/L Troponin I (0.000-0.056) ng/mL Total Protein (6.4-8.2) g/dL Albumin (3.4-5.0) g/dL Globulin (2.0-3.5) g/dL Albumin/Globulin Ratio (1.3-2.8) Valproic Acid 42.0 L (50.0-100.0) ug/mL Meds: Medications Generic Name Dose Route Start Last Admin Trade Name Freq PRN Reason Stop Dose Admin Sodium Chloride 1,000 mls @ 125 mls/hr 12/17/17 15:30 12/17/17 15:42 Normal Saline IV 125 mls/hr STAT LINDSAY Administration Departure - Departure Time of Disposition: 17:05 Disposition: Home, Self-Care 01 Condition: Good Clinical Impression: Seizure disorder - Discharge Information Additional Instructions: Increase your new medication from 1 tablet twice daily, to a new dose of 2 tablets twice daily for a total of 500 mg twice daily If symptoms persist or worsen Follow-up with Dr. Hernandez or primary care in 2 weeks sooner as needed The following information is given to patients seen in the emergency department who are being discharged to home. This information is to outline your options for follow-up care. We provide all patients seen in our emergency department with a follow-up referral. The need for follow-up, as well as the timing and circumstances, are variable depending upon the specifics of your emergency department visit. If you don't have a primary care physician on staff, we will provide you with a referral. We always advise you to contact your personal physician following an emergency department visit to inform them of the circumstance of the visit and for follow-up with them and/or the need for any referrals to a consulting specialist. The emergency department will also refer you to a specialist when appropriate. This referral assures that you have the opportunity for follow-up care with a specialist. All of these measure are taken in an effort to provide you with optimal care, which includes your follow-up. Under all circumstances we always encourage you to contact your private physician who remains a resource for coordinating your care. When calling for follow-up care, please make the office aware that this follow-up is from your recent emergency room visit. If for any reason you are refused follow-up, please contact the [facility] emergency department at and asked to speak to the emergency department charge nurse. - My Orders Last 24 Hours: My Active Orders 12/17/17 15:27 EKG Documentation Completion [RC] STAT Chest 1V Frontal [CR] Stat Elbow Min 3V Rt [CR] Stat Head wo Cont [CT] Stat UA W/MICROSCOPIC [URIN] Stat 12/17/17 15:30 Sodium Chloride 0.9% [Normal Saline] 1,000 ml IV STAT - Assessment/Plan Last 24 Hours: My Active Orders 12/17/17 15:27 EKG Documentation Completion [RC] STAT Chest 1V Frontal [CR] Stat Elbow Min 3V Rt [CR] Stat Head wo Cont [CT] Stat UA W/MICROSCOPIC [URIN] Stat 12/17/17 15:30 Sodium Chloride 0.9% [Normal Saline] 1,000 ml IV STAT
[2017-12-17] MEDS ORDERED: Sodium Chloride 0.9% 1,000 ML IV SCH (15:30)
[2017-12-17 15:38] VITALS: BP 150/89
[2017-12-17 16:13] LABS: CHLORIDE,CL 103 mmol/L (98-107); SODIUM,NA 140 mmol/L (136-145)
--- NOTE | 2017-12-17 19:15 | CT ---
EXAM DATE: 12/17/17 PATIENT'S AGE: 52 Patient: BELLE BOO Facility: [place], [place] Site . Site : 1965 Study: CT Head [id number]/6/2018 4:14:07 PM Ordering Physician: Ankita Lockhart Final Report: Indication: Pain, seizure, fall. Technique: Multiaxial CT images of the head were obtained without contrast. Coronal and sagittal reformats were submitted. Comparison: 02/16/2016 CT head Findings: The ventricles, sulci and gyri are of normal size, shape and contour. Midline structures are centrally located. No convincing evidence of intra- or extra- axial fluid collections. The calvarium and skull base are unremarkable, with normal aeration of the visualized petrous temporal bones and paranasal sinuses on both sides. Carotid siphon atherosclerotic calcifications noted. Impression: No radiographic evidence of acute intracranial abnormality. Please note that all CT scans at this facility use dose modulation, iterative reconstruction, and/or weight-based dosing when appropriate to reduce radiation dose to as low as reasonably achievable. Dictated by Endy Kovacs MD @ Dec 17 2017 4:17PM (Electronic Signature) Report Signed by Proxy. [facility] SYSTEMLindsay
--- NOTE | 2017-12-17 19:16 | CR ---
EXAM DATE: 12/17/17 PATIENT'S AGE: 52 Patient: BELLE BOO Facility: [place], [place] Site . Site : 1965 Study: XRay Chest [id number]/6/2018 4:19:15 PM Ordering Physician: Ankita Lockhart Final Report: INDICATION: seizure TECHNIQUE: Chest 1 view COMPARISON: August 09, 2017 FINDINGS: Cardiovascular and mediastinum: Heart size and vasculature are normal in caliber and appearance. Mediastinum is within normal limits. Lungs and pleural space: No focal consolidation. No sign of pleural effusion. No pneumothorax. Bones and soft tissues: No significant findings. IMPRESSION: No acute cardiopulmonary disease. Dictated by Ravindra Bunn MD @ 12/17/2017 4:41:10 PM Dictated by: Ravindra Bunn MD @ 12/17/2017 16:41:15 (Electronic Signature) Report Signed by Proxy. [facility]ENTERLindsay
--- NOTE | 2017-12-17 19:17 | CR ---
EXAM DATE: 12/17/17 PATIENT'S AGE: 52 Patient: BELLE BOO Facility: [place], [place] Site . Site : 1965 Study: XRay Extremity Right elbow [id number]/6/2018 4:19:41 PM Ordering Physician: Ankita Lockhart Final Report: INDICATION: seizure/fall TECHNIQUE: Three views of the right elbow COMPARISON: None FINDINGS: Bones: No fractures or bone lesions. Joint spaces: Unremarkable. Soft tissues: Soft tissue swelling posteriorly about the right elbow. No radiopaque foreign body. IMPRESSION: Soft tissue swelling posteriorly about the right elbow. No radiopaque foreign body. No acute bony abnormality. Dictated by Ravindra Bunn MD @ 12/17/2017 4:43:36 PM Dictated by: Ravindra Bunn MD @ 12/17/2017 16:44:00 (Electronic Signature) Report Signed by Proxy. [facility]
== END 2017-12-17 17:30 | disposition home or self-care (01) ==
LOC: MW.ED 15:25
DX: G40.909 Epilepsy, unspecified, not intractable, without status epilepticus (principal); S50.01XA Contusion of right elbow, initial encounter; F41.9 Anxiety disorder, unspecified; F32.9 Major depressive disorder, single episode, unspecified; Z88.6 Allergy status to analgesic agent; Z91.018 Allergy to other foods; Z79.899 Other long term (current) drug therapy; Z87.891 Personal history of nicotine dependence; W22.8XXA Striking against or struck by other objects, initial encounter; Y92.512 Supermarket, store or market as the place of occurrence of the external cause
CPT/HCPCS: 36415; 70450; 71045; 73080; 80053; 80164; 84484; 85025; 85610; 93005; 96360; 96361; 99285; J7040; 99283

== ENCOUNTER 2017-12-29 15:55 | Emergency (ER) | payer BC ==
[2017-12-29] MEDS ORDERED: Ondansetron 4 MG/2 ML SDV IVPUSH ONE (16:05)
[2017-12-29] MEDS ORDERED: Sodium Chloride 0.9% 1,000 ML IV ONE (16:05)
[2017-12-29] MEDS ORDERED: Morphine 2 MG/ML Syringe IVPUSH ONE ×4 (16:05→18:21)
[2017-12-29] MEDS ORDERED: Morphine 2 MG/ML Syringe IM ONE (16:14)
--- NOTE | 2017-12-29 16:16 | EDM.PDOC ---
ED HPI GENERAL MEDICAL PROBLEM - General Chief Complaint: Upper Extremity Injury/Pain Stated Complaint: AMBULANCE Time Seen by Provider: 12/29/17 15:55 Source of Information: Reports: Patient, Family History Limitations: Reports: No Limitations - History of Present Illness INITIAL COMMENTS - FREE TEXT/NARRATIVE: HISTORY AND PHYSICAL: History of present illness: This is a 52-year-old female that is presenting acutely to the ER via EMS secondary to a fall that was witnessed resulting in trauma to the left shoulder as well as left side of her face. Patient is complaining of significant pain in her anterior shoulder area along with associated numbness and tingling coming down her left extremity to the fingertips. Patient is able to move her fingers able to mildly move her left arm however due to the significant amount of pain she is trying to still as possible. Patient also states that when she fell she also hit the side of her face, there is no obvious trauma to the face, patient denies losing consciousness, and denies any symptoms of nausea/vomiting, headaches, visual disturbance or any other neurological deficit at this point in time. Patient does have a history of seizures with the last witnessed seizure being 1 week prior, she is on antiseizure medication and she didn't take her medication this morning in the a.m. and does not believe that this was a seizure. Patient denies ever having a dislocation of her shoulder secondary to seizures. Patient is also on Xeralto due to DVT issues. Patient denies any discomfort or pain in any other region. Review of systems: As per history of present illness and below otherwise all systems reviewed and negative. Past medical history: As per history of present illness and as reviewed below otherwise noncontributory. Surgical history: As per history of present illness and as reviewed below otherwise noncontributory. Social history: No reported history of drug or alcohol abuse. Family history: As per history of present illness and as reviewed below otherwise noncontributory. Physical exam: HEENT: Oral cephalic, trauma to left side of face, mild swelling but no obvious deformity. No periorbital ecchymosis appreciated, no mastoid ecchymosis appreciated. Pupils are equally round and reactive to light and accommodation with no photophobia appreciated, negative for conjunctival pallor or scleral icterus, mucous membranes do appear dry with the patient appearing to have lingula villosa nigra, throat clear, neck supple, nontender, trachea midline. Lungs: Clear to auscultation, breath sounds equal bilaterally however patient is not able to take a deep breathin secondary to shoulder pain, chest nontender. Heart: S1S2, regular, negative for clicks, rubs, or JVD. Abdomen: Soft, nondistended, nontender. Negative for masses or hepatosplenomegaly. Negative for costovertebral tenderness. Pelvis: Stable nontender. Genitourinary: Deferred. Rectal: Deferred. Extremities: Left shoulder is in a sling, it is difficult to ascertain if this is a dislocation deformity secondary to patient's inability to sit up, patient is complaining of numbness and tingling coming down to her fingertips of the left upper extremity. No other deformities appreciated Neuro: Awake, alert, oriented. Cranial nerves II through XII unremarkable. Cerebellum unremarkable. Motor and sensory unremarkable throughout. Exam nonfocal. Diagnostics: CBC CMP INR UA CT head without contrast-within normal limits CT face-within normal limits 3 view shoulder x-ray-left humerus fracture Therapeutics: 4 mg IV morphine 4 mg IV Zofran Normal saline 1 L bolus Valium Impression: 52-year-old female suffering acute fall resulting in a left impacted humerus fracture without any other abnormalities. Plan: Patient has been placed in an immobilizer has been given pain medication and muscle relaxant. Orthopedics has already been spoken with an estimated to have the patient call the clinic in the a.m. to make an outpatient appointment. Definitive disposition and diagnosis as appropriate pending reevaluation and review of above. Left Shoulder Pain Score (Numeric/FACES): 10 Left Elbow Pain Score (Numeric/FACES): 10 - Related Data Allergies Allergy/AdvReac Type Severity Reaction Status Date / Time aspirin Allergy Ringing in Verified 12/29/17 16:16 the Ears banana Allergy Stomach Verified 12/29/17 16:16 Ache [place] Allergy Stomach Uncoded 09/09/17 11:04 Ache Cantalope Allergy Stomach Uncoded 09/09/17 11:04 Ache Home Meds: Home Meds Doxepin HCl [Doxepin] 300 mg PO BEDTIME 04/24/17 [History] Lisinopril 20 mg PO DAILY 04/24/17 [History] Rivaroxaban [Xarelto] 20 mg PO DAILY 04/24/17 [History] Topiramate 50 mg PO BID 04/24/17 [History] Divalproex Sodium 250 mg PO BID 12/17/17 [History] Omeprazole 40 mg PO BID 12/17/17 [History] Acetaminophen/HYDROcodone [Brimley 325-7.5 MG] 1 tab PO Q6H PRN 5 Days #20 tab [Rx] Cyclobenzaprine [Flexeril] 10 mg PO BID 10 Days #20 tablet 12/29/17 [Rx] Ergocalciferol (Vitamin D2) [Vitamin D2] 50,000 units PO ASDIRECTED 12/29/17 [ History] Past Medical History HEENT History: Reports: Other (See Below) Other HEENT History: TMJ "on Right" Cardiovascular History: Reports: Blood Clots/VTE/DVT, Other (See Below) Other Cardiovascular History: "Central Chest Pain" Respiratory History: Reports: Asthma, Bronchitis, Recurrent Other Respiratory History: 40 yr history of smoking current use 1 pack/day Gastrointestinal History: Reports: None Genitourinary History: Reports: 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: Musculoskeletal History: Reports: Arthritis, Back Pain, Chronic, Fibromyalgia, Other (See Below) Other Musculoskeletal History: chronic shoulder pain Neurological History: Reports: Seizure Other Neuro History: TMJ Psychiatric History: Reports: Anxiety, Depression Other Psychiatric History: By diagnosis not shared in this interview Endocrine/Metabolic History: Reports: Obesity/BMI 30+ Hematologic History: Reports: Other (See Below) Other Hematologic History: DVT Immunologic History: Reports: None Oncologic (Cancer) History: Reports: None Dermatologic History: Reports: None - Infectious Disease History Infectious Disease History: Reports: Chicken Pox - Past Surgical History Head Surgeries/Procedures: Reports: None HEENT Surgical History: Reports: Other (See Below), Tonsillectomy GI Surgical History: Reports: Appendectomy, Hernia, Inguinal Female Surgical History: Reports: Section Musculoskeletal Surgical History: Reports: Other (See Below) Social & Family History - Family History Family Medical History: Noncontributory HEENT: Reports: None Cardiac: Reports: None Respiratory: Reports: None GI: Reports: None : Reports: None OBGYN: Reports: None Musculoskeletal: Reports: None Neurological: Reports: None Psychiatric: Reports: None Endocrine/Metabolic: Reports: None Hematologic: Reports: None Immunologic: Reports: None Dermatologic: Reports: None Oncologic: Reports: None - Caffeine Use Caffeine Use: Reports: Coffee Caffeine Use Comment: 4 cups per day - Living Situation & Occupation Living situation: Reports: Review of Systems - Review of Systems Review Of Systems: ROS reveals no pertinent complaints other than HPI. ED EXAM, GENERAL - Physical Exam Exam: See Below Course - Vital Signs Last Recorded V/S: Last Vital Signs Temp 36.7 C 12/29/17 16:04 Pulse 98 12/29/17 16:04 Resp 18 12/29/17 16:04 BP 148/91 H 12/29/17 16:04 Pulse Ox 97 12/29/17 16:04 - Orders/Labs/Meds Orders: Active Orders 24 hr Category Date Time Status Immobilizer [RC] ASDIRECTED Care 12/29/17 19:42 Active Head wo Cont [CT] Stat Exams 12/29/17 16:08 Taken Max Facial Sinus wo Cont [CT] Stat Exams 12/29/17 17:28 Taken Shoulder Comp Lt [CR] Stat Exams 12/29/17 16:08 Taken Labs: Laboratory Tests 12/29/17 12/29/17 12/29/17 Range/Units 16:27 16:27 16:27 WBC 8.13 (4.0-11.0) K/uL RBC 4.26 L (4.30-5.90) M/uL Hgb 14.9 (12.0-16.0) g/dL Hct 44.4 (36.0-46.0) % MCV 104.2 H (80.0-98.0) fL MCH 35.0 H (27.0-32.0) pg MCHC 33.6 (31.0-37.0) g/dL RDW Std Deviation 50.1 (28.0-62.0) fl RDW Coeff of Arleen 13 (11.0-15.0) % Plt Count 239 (150-400) K/uL MPV 10.40 (7.40-12.00) fL Neut % (Auto) 61.7 (48.0-80.0) % Lymph % (Auto) 24.0 (16.0-40.0) % [place] % (Auto) 11.4 (0.0-15.0) % Eos % (Auto) 2.3 (0.0-7.0) % Baso % (Auto) 0.6 (0.0-1.5) % Neut # (Auto) 5.0 (1.4-5.7) K/uL Lymph # (Auto) 2.0 (0.6-2.4) K/uL [place] # (Auto) 0.9 H (0.0-0.8) K/uL Eos # (Auto) 0.2 (0.0-0.7) K/uL Baso # (Auto) 0.1 (0.0-0.1) K/uL Nucleated RBC % 0.0 /100WBC Nucleated RBCs # 0 K/uL INR 1.11 Sodium 140 (136-145) mmol/L Potassium 4.2 (3.5-5.1) mmol/L Chloride 104 (98-107) mmol/L Carbon Dioxide 24.7 (21.0-32.0) mmol/L BUN 8 (7.0-18.0) mg/dL Creatinine 1.0 (0.6-1.0) mg/dL Est Cr Clr Drug Dosing 50.86 mL/min Estimated GFR (MDRD) 57.8 ml/min Glucose 129 H (74-106) mg/dL Calcium 9.3 (8.5-10.1) mg/dL Total Bilirubin 0.2 (0.2-1.0) mg/dL AST 39 H (15-37) IU/L ALT 49 (14-63) IU/L Alkaline Phosphatase 75 (46-116) U/L Total Protein 7.8 (6.4-8.2) g/dL Albumin 3.5 (3.4-5.0) g/dL Globulin 4.3 H (2.0-3.5) g/dL Albumin/Globulin Ratio 0.8 L (1.3-2.8) Meds: Medications Discontinued Medications Generic Name Dose Route Start Last Admin Trade Name Freq PRN Reason Stop Dose Admin Diazepam 2.5 mg 12/29/17 18:54 12/29/17 19:37 Valium IV 12/29/17 18:55 2.5 mg ONETIME ONE Administration Hydromorphone HCl 0.5 mg 12/29/17 18:54 12/29/17 19:35 Dilaudid IVPUSH 12/29/17 18:55 0.5 mg ONETIME ONE Administration Sodium Chloride 1,000 mls @ 999 mls/hr 12/29/17 16:05 12/29/17 16:34 Normal Saline IV 12/29/17 17:05 999 mls/hr STAT ONE Administration Morphine Sulfate 2 mg 12/29/17 16:05 12/29/17 18:23 Morphine IVPUSH 12/29/17 16:06 Not Given ONETIME ONE Morphine Sulfate 2 mg 12/29/17 16:14 12/29/17 16:28 Morphine IM 12/29/17 16:15 Not Given ONETIME ONE Morphine Sulfate 4 mg 12/29/17 16:18 12/29/17 18:23 Morphine IVPUSH 12/29/17 16:19 Not Given ONETIME ONE Morphine Sulfate 4 mg 12/29/17 16:38 12/29/17 16:32 Morphine IVPUSH 12/29/17 16:39 4 mg ONETIME ONE Administration Morphine Sulfate 4 mg 12/29/17 18:21 12/29/17 18:25 Morphine IVPUSH 12/29/17 18:22 4 mg ONETIME ONE Administration Ondansetron HCl 4 mg 12/29/17 16:05 12/29/17 16:26 Zofran IVPUSH 12/29/17 16:06 4 mg ONETIME ONE Administration Departure - Departure Time of Disposition: 20:10 Disposition: Home, Self-Care 01 Clinical Impression: Fracture of humerus - Discharge Information Prescriptions: Acetaminophen/HYDROcodone [[place] 325-7.5 MG] 1 tab PO Q6H PRN 5 Days #20 tab PRN Reason: Pain (Moderate 4-6) Cyclobenzaprine [Flexeril] 10 mg PO BID 10 Days #20 tablet Instructions: Humerus Fracture Treated With ORIF, Humerus Fracture Treated With ORIF, Care After Referrals: PCP,None [Primary Care Provider] - Elinor Best MD [Physician] - José Miguel Almodovar MD [Physician] - Forms: ED Department Discharge Additional Instructions: You have suffered a left humerus fracture, without any other abnormalities appreciated. We have spoken with Dr. Ramirez orthopedics who would like for you to call her office in the morning to make an appointment. Please also make an appointment with Dr. almodovar as her primary care provider. You're being sent home in a shoulder immobilizer, for your comfort and recommend that you sleepy during the recliner with pillows as this will help ensure that the arm is stable. We are also sending her home on pain medication along with muscle relaxant for adequate pain control. Please also take ibuprofen every 4-6 hours as needed for inflammation and also ice the area as this will also help with her pain symptoms. If they have any worsening in her pain is not being controlled by the medication please come back to the ER. The following information is given to patients seen in the emergency department who are being discharged to home. This information is to outline your options for follow-up care. We provide all patients seen in our emergency department with a follow-up referral. The need for follow-up, as well as the timing and circumstances, are variable depending upon the specifics of your emergency department visit. If you don't have a primary care physician on staff, we will provide you with a referral. We always advise you to contact your personal physician following an emergency department visit to inform them of the circumstance of the visit and for follow-up with them and/or the need for any referrals to a consulting specialist. The emergency department will also refer you to a specialist when appropriate. This referral assures that you have the opportunity for follow-up care with a specialist. All of these measure are taken in an effort to provide you with optimal care, which includes your follow-up. Under all circumstances we always encourage you to contact your private physician who remains a resource for coordinating your care. When calling for follow-up care, please make the office aware that this follow-up is from your recent emergency room visit. If for any reason you are refused follow-up, please contact the [facility] Emergency Department at and asked to speak to the emergency department charge nurse. - My Orders Last 24 Hours: My Active Orders 12/29/17 16:08 Head wo Cont [CT] Stat Shoulder Comp Lt [CR] Stat 12/29/17 19:42 Immobilizer [RC] ASDIRECTED - Assessment/Plan Last 24 Hours: My Active Orders 12/29/17 16:08 Head wo Cont [CT] Stat Shoulder Comp Lt [CR] Stat 12/29/17 19:42 Immobilizer [RC] ASDIRECTED
[2017-12-29] MEDS ORDERED: HYDROmorphone 1 MG/ML Syringe IVPUSH ONE (18:54)
[2017-12-29] MEDS ORDERED: Diazepam 5 MG/ML 10 ML Vial MDV IV ONE (18:54)
[2017-12-29 20:54] VITALS: BP 91/55
--- NOTE | 2017-12-30 09:20 | CT ---
EXAM DATE: 12/29/17 PATIENT'S AGE: 52 Patient: BELLE BOO Facility: [place], [place] Site . Site : 1965 Study: CT Head [id number]/2018 5:44:49 PM Ordering Physician: Maylin Packer Final Report: INDICATION: seizure/fall TECHNIQUE: CT Head without contrast. COMPARISON: 12/17/2017 FINDINGS: There is no sign of intracranial hemorrhage or mass effect. The roy-white differentiation is preserved. No abnormal intra-axial or extra-axial fluid collection. No acute disease of the visualized paranasal sinuses and mastoid air cells. No fracture evident. No scalp hematoma/laceration. IMPRESSION: No acute intracranial process. Please note that all CT scans at this facility use dose modulation, iterative reconstruction, and/or weight-based dosing when appropriate to reduce radiation dose to as low as reasonably achievable. Dictated by: Ravindra Bunn MD @ 12/29/2017 18:12:35 (Electronic Signature) Report Signed by Proxy. [facility]
--- NOTE | 2017-12-30 09:21 | CT ---
EXAM DATE: 12/29/17 PATIENT'S AGE: 52 Patient: BELLE BOO Facility: [place], [place] Site . Site : 1965 Study: CT Facial [id number]/18/2018 6:07:10 PM Ordering Physician: Maylin Packer Final Report: INDICATION: Fell, Hit Face TECHNIQUE: CT maxillofacial without i.v. contrast. Coronal and sagittal reformats were obtained. CONTRAST: None COMPARISON: None FINDINGS: Bones: No acute fractures or aggressive bone lesions are identified. Joint: The temporomandibular joints are unremarkable in appearance. Sinus: The sinuses are well-aerated with no significant mucosal thickening or retained secretions seen. The ostiomeatal units are patent. The nasal turbinates are normal. The nasal septum is midline and intact. Orbit: The visualized orbits are grossly unremarkable. Soft tissue: Unremarkable. IMPRESSION: 1. No acute osseous injuries or abnormalities are seen. Please note that all CT scans at this facility use dose modulation, iterative reconstruction, and/or weight-based dosing when appropriate to reduce radiation dose to as low as reasonably achievable. Dictated by: Sandoval Joiner MD @ 12/29/2017 18:24:28 (Electronic Signature) Report Signed by Proxy. [facility]
--- NOTE | 2017-12-30 09:36 | CR ---
EXAM DATE: 12/29/17 PATIENT'S AGE: 52 Patient: BELLE BOO Facility: [place], [place] Site . Site : 1965 Study: XRay Shoulder Left [id number]/18/2018 6:07:28 PM Ordering Physician: Maylin Packer Final Report: INDICATION: Left Shoulder Pain Post Fall TECHNIQUE: Shoulder radiograph 3 views left COMPARISON: None FINDINGS: Bones: There is a mildly impacted fracture of the surgical neck of the left humerus. Joints: The glenohumeral is unremarkable. Mild osteoarthritis of the AC joint is noted. Soft tissues: Unremarkable. The visualized hemithorax is unremarkable in appearance. No radiopaque foreign bodies are seen. IMPRESSION: 1. There is a mildly impacted fracture of the surgical neck of the left humerus. Dictated by Sandoval Joiner MD @ 12/29/2017 6:25:21 PM Dictated by: Sandoval Joiner MD @ 12/29/2017 18:25:25 (Electronic Signature) Report Signed by Proxy. [facility]
== END 2017-12-29 20:35 | disposition home or self-care (01) ==
LOC: MW.ED 15:55
DX: S42.212A Unspecified displaced fracture of surgical neck of left humerus, initial encounter for closed fracture (principal); Z88.6 Allergy status to analgesic agent; W01.198A Fall on same level from slipping, tripping and stumbling with subsequent striking against other object, initial encounter
CPT/HCPCS: 36415; 70450; 70486; 73030; 80053; 85025; 85610; A9270; J1170; J2270; J2405; J7040

== ENCOUNTER 2019-03-10 10:23 | Day surgery (SDC) | payer BC ==
[~2019-03-10 10:23] MED LIST: Lidocaine 2% 5 ML SDV ONE; Midazolam 1 MG/ML 2 ML SDV ONE; Propofol 200 MG/20 ML SDV ONE; fentaNYL 100 MCG/2 ML SDV ONE
[2019-03-10] MEDS ORDERED: Lidocaine 1% 20 ML MDV ONE (10:48)
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
[2019-03-10] MEDS ORDERED: Scopolamine 1.5 MG Transdermal Patch TRDERM PRN (10:56)
[2019-03-10] MEDS ORDERED: ceFAZolin 1 GM Vial ONE (12:04)
[2019-03-10] MEDS ORDERED: Octyl 2-Cyanoacrylate 1 Tube ONE (12:19)
[2019-03-10] MEDS ORDERED: Ondansetron 4 MG/2 ML SDV ONE (12:22)
--- NOTE | 2019-03-10 12:40 | PCM.OPNOTE ---
- General Post-Op/Procedure Note Date of Surgery/Procedure: 03/10/19 Operative Procedure(s): excision left groin skin lesion Findings: 1 cm x 8mm x 5mm skin lesion on the right labia-groin Pre Op Diagnosis: Left groin skin lesion Post-Op Diagnosis: same Anesthesia Technique: General LMA Primary Surgeon: Marah Becker Condition: Good
--- NOTE | 2019-03-10 12:59 | PCM.POSTAN ---
POST ANESTHESIA ASSESSMENT - MENTAL STATUS Mental Status: Alert, Oriented - VITAL SIGNS Vital Signs: Last Vital Signs Temp 36.2 C 03/10/19 12:33 Pulse 80 03/10/19 12:48 Resp 16 03/10/19 12:48 BP 118/75 03/10/19 12:43 Pulse Ox 98 03/10/19 12:48 - RESPIRATORY Respiratory Status: Respiratory Rate WNL, Airway Patent, O2 Saturation Stable - CARDIOVASCULAR CV Status: Pulse Rate WNL, Blood Pressure Stable - GASTROINTESTINAL GI Status: No Symptoms - PAIN Pain Score: 0 - POST OP HYDRATION Hydration Status: Adequate & Stable
--- NOTE | 2019-03-10 13:31 | OR ---
SURGEON: MARAH BECKER MD DATE OF PROCEDURE: 03/10/2019 PREOPERATIVE DIAGNOSIS: Left groin skin lesion. POSTOPERATIVE DIAGNOSIS: Left groin skin lesion. PROCEDURE PERFORMED: Excision of left groin skin lesion. PRIMARY SURGEON: Marah Becker MD. ANESTHESIA: General LMA. FLUIDS: 700 mL crystalloid. ESTIMATED BLOOD LOSS: 3 mL. FINDINGS: A 1 cm x 8 mm x 5 mm skin lesion on the left groin. COMPLICATIONS: None. INDICATIONS: The patient is a 53-year-old female who has had a chronic draining lesion on her left groin for many years. Recently, it became painful and appeared darkened. The patient saw her COMMUNITY SERVICE PATROL OFFICER who felt this was a traumatized follicle. I saw her and felt the same. However, the patient is scheduled for shoulder replacement surgery in the near future and would like to have it removed in case this hinders her chances of the subsequent surgery. I agreed that the only way to know for sure if this is anything else is to remove the lesion. I explained the procedure, expected perioperative course, and risks including bleeding or infection. The patient verbalized understanding and wishes to proceed. PROCEDURE IN DETAIL: The patient was brought into the OR and placed on the OR table in supine position. A time-out was completed verifying the patient's name, age, date of , allergies, and procedure to be performed. General LMA anesthesia was induced. The patient was placed into a frog-leg position and the left groin and surrounding areas were prepped and draped in usual standard fashion. I anesthetized under the skin lesion with 0.5% Marcaine plain. A jone-shaped incision was made around the lesion using a 15 blade. Cautery was then used to dissect down to the level of the subcutaneous fat. The skin was then undermined using electrocautery, taking care to take a layer of subcutaneous fat with the lesion. The ellipse piece of tissue measured 1 cm x 8 mm x 5 mm. It was sent to Pathology, labeled as left groin skin lesion. Hemostasis was then achieved in the wound using electrocautery. It was closed with interrupted 3-0 Vicryl in the subcutaneous fat layer and the skin was closed with a running 4-0 Monocryl stitch. Dermabond and sterile dressing were applied. The patient tolerated the procedure well, was taken to PACU in stable condition. BROOKE / KASANDRA /[id number]
--- NOTE | 2019-03-10 13:43 | PCM48HPAN ---
Post Anesthesia Note - EVALUATION WITHIN 48HRS OF ANESTHETIC Vital Signs in Normal Range: Yes Patient Participated in Evaluation: Yes Respiratory Function Stable: Yes Airway Patent: Yes Cardiovascular Function Stable: Yes Hydration Status Stable: Yes Pain Control Satisfactory: Yes Nausea and Vomiting Control Satisfactory: Yes Mental Status Recovered: Yes Vital Signs: Last Vital Signs Temp 36.2 C 03/10/19 12:33 Pulse 82 03/10/19 13:03 Resp 18 03/10/19 13:03 BP 140/80 03/10/19 13:03 Pulse Ox 95 03/10/19 13:03
[2019-03-10 13:52] VITALS: BP 128/78; PULSE 79
== END 2019-03-10 13:59 | disposition home or self-care (01) ==
LOC: MW.SDS 10:23
PROVIDERS: ATTEND Surgery
DX: L72.0 Epidermal cyst (principal); E03.9 Hypothyroidism, unspecified; J45.909 Unspecified asthma, uncomplicated; G40.209 Localization-related (focal) (partial) symptomatic epilepsy and epileptic syndromes with complex partial seizures, not intractable, without status epilepticus; I10 Essential (primary) hypertension; M18.12 Unilateral primary osteoarthritis of first carpometacarpal joint, left hand; M19.012 Primary osteoarthritis, left shoulder; F17.210 Nicotine dependence, cigarettes, uncomplicated; F41.8 Other specified anxiety disorders; E78.5 Hyperlipidemia, unspecified; K21.9 Gastro-esophageal reflux disease without esophagitis; Z79.01 Long term (current) use of anticoagulants; Z79.899 Other long term (current) drug therapy
CPT/HCPCS: 00400; 88305; A9270-GY; J0690; J2001; J2250; J2405; J2704; J3010

== ENCOUNTER 2019-03-19 14:05 | Emergency (ER) | payer BC ==
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
[2019-03-19 14:27] VITALS: BP 139/92; PULSE 96
[2019-03-19] MEDS ORDERED: Bacitracin Oint 1 GM U/D Packet TOP ONE (14:41)
== END 2019-03-19 15:01 | disposition home or self-care (01) ==
LOC: MW.ED 14:05
DX: Z48.817 Encounter for surgical aftercare following surgery on the skin and subcutaneous tissue (principal); I10 Essential (primary) hypertension; E78.00 Pure hypercholesterolemia, unspecified; K21.9 Gastro-esophageal reflux disease without esophagitis; E66.9 Obesity, unspecified; Z68.30 Body mass index [BMI] 30.0-30.9, adult; F32.9 Major depressive disorder, single episode, unspecified; F41.9 Anxiety disorder, unspecified; Z86.73 Personal history of transient ischemic attack (TIA), and cerebral infarction without residual deficits; Z79.01 Long term (current) use of anticoagulants; Z79.899 Other long term (current) drug therapy; Z88.6 Allergy status to analgesic agent; Z91.018 Allergy to other foods
CPT/HCPCS: 99282; 99283

== ENCOUNTER 2019-11-18 13:38 | Observation (INO) | payer BC ==
[2019-11-18] MEDS ORDERED: Lactated Ringers 1,000 ML IV ONE ×2 (14:47→16:35)
[2019-11-18] MEDS ORDERED: Sodium Chloride 0.9% 10 ML Syringe FLUSH PRN (14:47)
[2019-11-18] MEDS ORDERED: Sodium Chloride 0.9% 2.5 ML Syringe FLUSH PRN (14:47)
[2019-11-18] MEDS ORDERED: Sodium Chloride 0.9% 10 ML SDV IV PRN (14:47)
[2019-11-18] MEDS ORDERED: fentaNYL 50 MCG/ML SDV IVPUSH ONE ×2 (14:47→15:48)
[2019-11-18 15:02] LABS: BLOOD UREA NITROGEN,BUN 6 mg/dL (7.0-18.0); CARBON DIOXIDE,CO2 23.1 mmol/L (21.0-32.0); CHLORIDE,CL 103 mmol/L (98-107); GLUCOSE RANDOM 100 mg/dL (74-106); POTASSIUM,K 3.8 mmol/L (3.5-5.1); SODIUM,NA 140 mmol/L (136-145)
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
[2019-11-18] MEDS ORDERED: Iopamidol 755 Mg/ML 100 ML Bottle IVPUSH ONE (16:15)
--- NOTE | 2019-11-18 16:15 | CT ---
INDICATION: Abdominal pain. COMPARISON: CT scan of the abdomen and pelvis dated 24 April 2017. TECHNIQUE: CT scan of the abdomen and pelvis with 100 cc of Isovue-370 given intravenously. FINDINGS: The lung bases show minimal dependent atelectasis. Diffuse fatty infiltration of the liver. Small granuloma in segment 7 of the liver. No other focal abnormalities identified in the visualized portions of the liver, spleen, pancreas, adrenal glands, and kidneys. No hydronephrosis. No obstructing uroliths. Colonic diverticulosis. Focal bowel wall thickening and mild pericolonic edema involving the proximal sigmoid colon. The remainder of the GI tract is incompletely distended but shows no gross abnormalities. The stomach and GE junction are not well assessed. No retroperitoneal, pelvic sidewall, or mesenteric adenopathy. Atherosclerotic vascular calcifications. IMPRESSION: 1. Probable diverticulitis involving the proximal sigmoid colon. Recommend direct visualization with colonoscopy once the patient`s symptoms have resolved to exclude the possibility of an underlying neoplastic process. 2. Diffuse fatty infiltration of the liver. Dictated by Ronnie Alanis MD @ 11/18/2019 4:14:38 PM Please note that all CT scans at this facility use dose modulation, iterative reconstruction, and/or weight-based dosing when appropriate to reduce radiation dose to as low as reasonably achievable. Dictated by: Ronnie Alanis MD @ 11/18/2019 16:14:47 (Electronically Signed)
[2019-11-18] MEDS ORDERED: metroNIDAZOLE/Normal Saline 500 MG in Premix Bag 1 BAG IV ONE (16:35)
[2019-11-18] MEDS: Ciprofloxacin in D5W 400 MG in Premix Bag 1 BAG IV SCH ×2 (16:49)
[2019-11-18] MEDS ORDERED: HYDROCORTISONE VALERATE 0.2% TOP PRN (17:11)
[2019-11-18] MEDS ORDERED: Sodium Chloride 0.9% 1,000 ML IV ONE (17:13)
[2019-11-18] MEDS ORDERED: Omeprazole 20 MG Cap.CR PO SCH (17:15)
[2019-11-18] MEDS ORDERED: Thiamine 100 MG in Sodium Chloride 0.9% 100 ML IV ONE (17:15)
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
[2019-11-18] MEDS ORDERED: Ondansetron 4 MG/2 ML SDV IVPUSH PRN (17:28)
[2019-11-18 17:46] LABS: BILIRUBIN INDIRECT 0.1
[2019-11-18] MEDS: Pantoprazole 40 MG in Sodium Chloride 0.9% 10 ML IV SCH (17:53)
[2019-11-18] MEDS: Nicotine 21 MG/24 Hr Patch TRDERM SCH (17:56)
[2019-11-18] MEDS: HYDROmorphone 1 MG/ML Syringe IVPUSH PRN (18:16)
[2019-11-18] MEDS ORDERED: Rivaroxaban 10 MG Tab PO SCH (21:00)
[2019-11-18] MEDS: Topiramate 50 MG Tab PO SCH (21:09)
[2019-11-18] MEDS: Folic Acid 1 MG Tab PO SCH (21:10)
[2019-11-18] MEDS: Doxepin 25 MG Cap PO SCH (21:10)
[2019-11-18] MEDS: LORazepam 2 MG/ML SDV IVPUSH PRN (21:30)
[2019-11-19] MEDS: metroNIDAZOLE/Normal Saline 500 MG in Premix Bag 1 BAG IV SCH ×4 (00:27→23:19)
[2019-11-19] MEDS: HYDROmorphone 1 MG/ML Syringe IVPUSH PRN ×5 (00:30→21:58)
[2019-11-19] MEDS: Doxepin 25 MG Cap PO SCH (00:31)
[2019-11-19] MEDS: LORazepam 2 MG/ML SDV IVPUSH PRN (00:41)
[2019-11-19] MEDS: Ciprofloxacin in D5W 400 MG in Premix Bag 1 BAG IV SCH ×4 (04:01→17:16)
[2019-11-19] MEDS: Pantoprazole 40 MG in Sodium Chloride 0.9% 10 ML IV SCH (08:46)
[2019-11-19] MEDS ORDERED: Lisinopril 10 MG Tab PO SCH (09:00)
[2019-11-19] MEDS: Topiramate 50 MG Tab PO SCH ×2 (09:26→20:39)
[2019-11-19] MEDS: Nicotine 21 MG/24 Hr Patch TRDERM SCH (09:38)
--- NOTE | 2019-11-19 11:04 | PCM.PN ---
- General Info Date of Service: 11/19/19 Admission Dx/Problem (Free Text): Admission Diagnosis/Problem Admission Diagnosis/Problem Diverticulitis Subjective Update: seen and examined at bedside, pain has improved, appetite better - Review of Systems General: Denies: Fever, Weakness HEENT: Denies: Dysphasia, Ear Pain Pulmonary: Denies: Shortness of Breath, Pleuritic Chest Pain Gastrointestinal: Reports: Abdominal Pain, Constipation, Decreased Appetite, Flatus. Denies: Diarrhea, Difficulty Swallowing, Nausea, Vomiting Genitourinary: Denies: Dysuria, Frequency, Burning Musculoskeletal: Denies: Neck Pain, Shoulder Pain, Arm Pain Skin: Denies: Cyanosis, Jaundice, Mottled - Patient Data Vitals - Most Recent: Last Vital Signs Temp 36.4 C 11/19/19 07:25 Pulse 80 11/19/19 07:25 Resp 18 11/19/19 07:25 BP 125/81 11/19/19 07:25 Pulse Ox 94 L 11/19/19 07:25 Weight - Most Recent: 82 kg I&O - Last 24 Hours: Intake & Output 11/18/19 11/19/19 11/19/19 22:59 06:59 14:59 Intake Total 100 1096 Output Total 750 Balance 100 346 Lab Results Last 24 Hours: Laboratory Results - last 24 hr 11/18/19 11/18/19 11/18/19 Range/Units 14:23 14:33 14:33 WBC 12.86 H (4.0-11.0) K/uL RBC 4.23 L (4.30-5.90) M/uL Hgb 13.9 (12.0-16.0) g/dL Hct 41.9 (36.0-46.0) % MCV 99.1 H (80.0-98.0) fL MCH 32.9 H (27.0-32.0) pg MCHC 33.2 (31.0-37.0) g/dL RDW Std Deviation 56.6 (28.0-62.0) fl RDW Coeff of Arleen 16 H (11.0-15.0) % Plt Count 201 (150-400) K/uL MPV 10.10 (7.40-12.00) fL Neut % (Auto) 71.0 (48.0-80.0) % Lymph % (Auto) 18.8 (16.0-40.0) % [place] % (Auto) 8.8 (0.0-15.0) % Eos % (Auto) 1.2 (0.0-7.0) % Baso % (Auto) 0.2 (0.0-1.5) % Neut # (Auto) 9.1 H (1.4-5.7) K/uL Lymph # (Auto) 2.4 (0.6-2.4) K/uL [place] # (Auto) 1.1 H (0.0-0.8) K/uL Eos # (Auto) 0.2 (0.0-0.7) K/uL Baso # (Auto) 0.0 (0.0-0.1) K/uL Nucleated RBC % 0.0 /100WBC Nucleated RBCs # 0 K/uL INR Lactate 2.4 H* (0.20-2.00) mmol/L Sodium (136-145) mmol/L Potassium (3.5-5.1) mmol/L Chloride (98-107) mmol/L Carbon Dioxide (21.0-32.0) mmol/L BUN (7.0-18.0) mg/dL Creatinine (0.6-1.0) mg/dL Est Cr Clr Drug Dosing mL/min Estimated GFR (MDRD) ml/min Glucose (74-106) mg/dL Calcium (8.5-10.1) mg/dL Total Bilirubin (0.2-1.0) mg/dL Direct Bilirubin (0.0-0.5) mg/dL Indirect Bilirubin AST (15-37) IU/L ALT (14-63) IU/L Alkaline Phosphatase (46-116) U/L Total Protein (6.4-8.2) g/dL Albumin (3.4-5.0) g/dL Globulin (2.6-4.0) g/dL Albumin/Globulin Ratio (0.9-1.6) Lipase (73-393) U/L Urine Color YELLOW Urine Appearance CLEAR Urine pH 7.5 (5.0-8.0) Ur Specific R[place] 1.010 (1.001-1.035) Urine Protein NEGATIVE (NEGATIVE) mg/dL Urine Glucose (UA) NEGATIVE (NEGATIVE) mg/dL Urine Ketones NEGATIVE (NEGATIVE) mg/dL Urine Occult Blood NEGATIVE (NEGATIVE) Urine Nitrite NEGATIVE (NEGATIVE) Urine Bilirubin NEGATIVE (NEGATIVE) Urine Urobilinogen 0.2 (<2.0) EU/dL Ur Leukocyte Esterase NEGATIVE (NEGATIVE) 11/18/19 11/18/19 11/18/19 Range/Units 14:33 14:33 15:58 WBC (4.0-11.0) K/uL RBC (4.30-5.90) M/uL Hgb (12.0-16.0) g/dL Hct (36.0-46.0) % MCV (80.0-98.0) fL MCH (27.0-32.0) pg MCHC (31.0-37.0) g/dL RDW Std Deviation (28.0-62.0) fl RDW Coeff of Arleen (11.0-15.0) % Plt Count (150-400) K/uL MPV (7.40-12.00) fL Neut % (Auto) (48.0-80.0) % Lymph % (Auto) (16.0-40.0) % [place] % (Auto) (0.0-15.0) % Eos % (Auto) (0.0-7.0) % Baso % (Auto) (0.0-1.5) % Neut # (Auto) (1.4-5.7) K/uL Lymph # (Auto) (0.6-2.4) K/uL [place] # (Auto) (0.0-0.8) K/uL Eos # (Auto) (0.0-0.7) K/uL Baso # (Auto) (0.0-0.1) K/uL Nucleated RBC % /100WBC Nucleated RBCs # K/uL INR 0.92 Lactate 2.6 H* (0.20-2.00) mmol/L Sodium 140 (136-145) mmol/L Potassium 3.8 (3.5-5.1) mmol/L Chloride 103 (98-107) mmol/L Carbon Dioxide 23.1 (21.0-32.0) mmol/L BUN 6 L (7.0-18.0) mg/dL Creatinine 0.7 (0.6-1.0) mg/dL Est Cr Clr Drug Dosing 70.98 mL/min Estimated GFR (MDRD) > 60.0 ml/min Glucose 100 (74-106) mg/dL Calcium 9.3 (8.5-10.1) mg/dL Total Bilirubin (0.2-1.0) mg/dL Direct Bilirubin (0.0-0.5) mg/dL Indirect Bilirubin AST (15-37) IU/L ALT (14-63) IU/L Alkaline Phosphatase (46-116) U/L Total Protein (6.4-8.2) g/dL Albumin (3.4-5.0) g/dL Globulin (2.6-4.0) g/dL Albumin/Globulin Ratio (0.9-1.6) Lipase (73-393) U/L Urine Color Urine Appearance Urine pH (5.0-8.0) Ur Specific R[place] (1.001-1.035) Urine Protein (NEGATIVE) mg/dL Urine Glucose (UA) (NEGATIVE) mg/dL Urine Ketones (NEGATIVE) mg/dL Urine Occult Blood (NEGATIVE) Urine Nitrite (NEGATIVE) Urine Bilirubin (NEGATIVE) Urine Urobilinogen (<2.0) EU/dL Ur Leukocyte Esterase (NEGATIVE) 11/18/19 11/18/19 11/18/19 Range/Units 15:58 15:58 19:06 WBC (4.0-11.0) K/uL RBC (4.30-5.90) M/uL Hgb (12.0-16.0) g/dL Hct (36.0-46.0) % MCV (80.0-98.0) fL MCH (27.0-32.0) pg MCHC (31.0-37.0) g/dL RDW Std Deviation (28.0-62.0) fl RDW Coeff of Arleen (11.0-15.0) % Plt Count (150-400) K/uL MPV (7.40-12.00) fL Neut % (Auto) (48.0-80.0) % Lymph % (Auto) (16.0-40.0) % [place] % (Auto) (0.0-15.0) % Eos % (Auto) (0.0-7.0) % Baso % (Auto) (0.0-1.5) % Neut # (Auto) (1.4-5.7) K/uL Lymph # (Auto) (0.6-2.4) K/uL [place] # (Auto) (0.0-0.8) K/uL Eos # (Auto) (0.0-0.7) K/uL Baso # (Auto) (0.0-0.1) K/uL Nucleated RBC % /100WBC Nucleated RBCs # K/uL INR Lactate 1.2 (0.20-2.00) mmol/L Sodium (136-145) mmol/L Potassium (3.5-5.1) mmol/L Chloride (98-107) mmol/L Carbon Dioxide (21.0-32.0) mmol/L BUN (7.0-18.0) mg/dL Creatinine (0.6-1.0) mg/dL Est Cr Clr Drug Dosing mL/min Estimated GFR (MDRD) ml/min Glucose (74-106) mg/dL Calcium (8.5-10.1) mg/dL Total Bilirubin 0.2 (0.2-1.0) mg/dL Direct Bilirubin 0.10 (0.0-0.5) mg/dL Indirect Bilirubin 0.10 AST 28 (15-37) IU/L ALT 32 (14-63) IU/L Alkaline Phosphatase 71 (46-116) U/L Total Protein 6.6 (6.4-8.2) g/dL Albumin 3.0 L (3.4-5.0) g/dL Globulin 3.6 (2.6-4.0) g/dL Albumin/Globulin Ratio 0.8 L (0.9-1.6) Lipase 88 (73-393) U/L Urine Color Urine Appearance Urine pH (5.0-8.0) Ur Specific [place] (1.001-1.035) Urine Protein (NEGATIVE) mg/dL Urine Glucose (UA) (NEGATIVE) mg/dL Urine Ketones (NEGATIVE) mg/dL Urine Occult Blood (NEGATIVE) Urine Nitrite (NEGATIVE) Urine Bilirubin (NEGATIVE) Urine Urobilinogen (<2.0) EU/dL Ur Leukocyte Esterase (NEGATIVE) Med Orders - Current: Current Medications Doxepin HCl (Sinequan) 300 mg PO BEDTIME [facility] Last Admin: 11/19/19 00:31 Dose: 300 mg Folic Acid (Folic Acid) 1 mg PO BEDTIME [facility] Last Admin: 11/18/19 21:10 Dose: 1 mg Hydromorphone HCl (Dilaudid) 1 mg IVPUSH Q4H PRN PRN Reason: Pain Last Admin: 11/19/19 09:36 Dose: 1 mg Ciprofloxacin/Dextrose 400 mg/ (Premix) 200 mls @ 200 mls/hr IV Q12H [facility] Last Admin: 11/19/19 04:01 Dose: 200 mls/hr Pantoprazole Sodium 40 mg/ (Sodium Chloride) 10 mls @ 300 mls/hr IV DAILY [facility] Last Admin: 11/19/19 08:46 Dose: 300 mls/hr Metronidazole 500 mg/ Premix 100 mls @ 100 mls/hr IV Q8H [facility] Last Admin: 11/19/19 09:31 Dose: 100 mls/hr Lactated Ringer's (Ringers, Lactated) 1,000 mls @ 125 mls/hr IV ASDIRECTED [facility] Lorazepam (Ativan) 0 mg IVPUSH Q4H PRN; Protocol PRN Reason: Agitation Last Admin: 11/19/19 00:41 Dose: 2 mg Nicotine (Habitrol) 21 mg TRDERM DAILY [facility] Last Admin: 11/19/19 09:38 Dose: 21 mg Ondansetron HCl (Zofran) 4 mg IVPUSH Q6H PRN PRN Reason: Nausea/Vomiting Hydrocortisone (Valerate 0.2% Cream) 1 each TOP DAILY PRN PRN Reason: Other Rivaroxaban (Xarelto) 20 mg PO BEDTIME [facility] Last Admin: 11/18/19 21:09 Dose: 20 mg Topiramate (Topamax) 75 mg PO BID [facility] Last Admin: 11/19/19 09:26 Dose: 75 mg Discontinued Medications Fentanyl (Fentanyl) 50 mcg IVPUSH ONETIME ONE Stop: 11/18/19 14:48 Last Admin: 11/18/19 14:59 Dose: 50 mcg Fentanyl (Fentanyl) 50 mcg IVPUSH ONETIME ONE Stop: 11/18/19 15:49 Last Admin: 11/18/19 16:15 Dose: 50 mcg Lactated Ringer's (Ringers, Lactated) 1,000 mls @ 1,000 mls/hr IV .BOLUS ONE Stop: 11/18/19 15:46 Last Admin: 11/18/19 14:54 Dose: 1,000 mls/hr Lactated Ringer's (Ringers, Lactated) 1,000 mls @ 1,000 mls/hr IV .BOLUS ONE Stop: 11/18/19 17:34 Last Admin: 11/18/19 16:49 Dose: 1,000 mls/hr Metronidazole 500 mg/ Premix 100 mls @ 100 mls/hr IV ONETIME ONE Stop: 11/18/19 17:34 Last Admin: 11/18/19 16:49 Dose: 100 mls/hr Sodium Chloride (Normal Saline) 1,000 mls @ 120 mls/hr IV STAT ONE Stop: 11/19/19 01:32 Last Admin: 11/18/19 17:50 Dose: 120 mls/hr Thiamine HCl 100 mg/ Sodium (Chloride) 101 mls @ 202 mls/hr IV ONETIME ONE Stop: 11/18/19 17:16 Last Admin: 11/18/19 21:03 Dose: 202 mls/hr Iopamidol (Isovue-370 (76%)) 100 ml IVPUSH ONETIME ONE Stop: 11/18/19 16:16 Last Admin: 11/18/19 16:16 Dose: 100 ml Lisinopril (Prinivil) 20 mg PO QAM [facility] Omeprazole (Omeprazole) 40 mg PO DAILY [facility] Last Admin: 11/18/19 17:43 Dose: Not Given Sodium Chloride (Saline Flush) 10 ml FLUSH ASDIRECTED PRN PRN Reason: Keep Vein Open Last Admin: 11/18/19 14:55 Dose: 10 ml Sodium Chloride (Saline Flush) 2.5 ml FLUSH ASDIRECTED PRN PRN Reason: Keep Vein Open Last Admin: 11/18/19 14:55 Dose: 2.5 ml Sodium Chloride (Normal Saline) 10 ml IV ASDIRECTED PRN PRN Reason: IV Use Last Admin: 11/18/19 14:54 Dose: 10 ml - Exam General: Alert, Oriented Neck: Supple, Trachea Midline Lungs: Clear to Auscultation, Normal Respiratory Effort Cardiovascular: Regular Rate, Regular Rhythm, No Murmurs GI/Abdominal Exam: Normal Bowel Sounds, No Organomegaly, No Distention, Guarding , Tender, Abnormal Bowel Sounds Extremities: Normal Inspection, Normal Range of Motion Sepsis Event Note - Evaluation Sepsis Screening Result: No Definite Risk - Focused Exam Vital Signs: Vital Signs Temp Pulse Resp BP Pulse Ox 11/19/19 07:25 36.4 C 80 18 125/81 94 L 11/19/19 04:00 35.8 C L 79 17 113/73 94 L 11/19/19 00:00 36.6 C 81 20 129/79 95 Date Exam was Performed: 11/19/19 Time Exam was Performed: 14:09 - Problem List & Annotations (1) Sigmoid diverticulitis SNOMED Code(s): 659586446 Code(s): K57.32 - DVTRCLI OF LG INT W/O PERFORATION OR ABSCESS W/O BLEEDING Status: Acute Current Visit: Yes (2) Abdominal pain SNOMED Code(s): 54103279 Code(s): R10.9 - UNSPECIFIED ABDOMINAL PAIN Status: Acute Priority: High Current Visit: No Onset Date: 06/08/14 - Problem List Review Problem List Initiated/Reviewed/Updated: Yes - My Orders Last 24 Hours: My Active Orders 11/19/19 11:02 BASIC METABOLIC PANEL,BMP [CHEM] Routine CBC WITH AUTO DIFF [HEME] Routine MAGNESIUM [CHEM] Routine PHOSPHORUS [CHEM] Routine 11/19/19 11:15 Lactated Ringers [Ringers, Lactated] 1,000 ml IV ASDIRECTED - Plan Plan:: A/P: 1. Diverticulitis: cipro+flagyl, start clears, cont IVF Lactate resolved, WBC count resolved Pain control: Dilauded 1 mg q 4 hours, still continues to have pain, although improved Stool studies including stool guaic ordered. H.pylori ordered. Lipase WNL Ativan 1mg PO Q6H as needed for anxiety PMH: continue Topamax, Rivaroxaban Hold omeprazole, lisinopril
[2019-11-19] MEDS: Lactated Ringers 1,000 ML IV SCH (11:20)
[2019-11-19 11:49] LABS: BLOOD UREA NITROGEN,BUN 6 mg/dL (7.0-18.0); CARBON DIOXIDE,CO2 23.8 mmol/L (21.0-32.0); CHLORIDE,CL 104 mmol/L (98-107); GLUCOSE RANDOM 95 mg/dL (74-106); POTASSIUM,K 3.7 mmol/L (3.5-5.1); SODIUM,NA 139 mmol/L (136-145)
[2019-11-19] MEDS ORDERED: Magnesium Oxide 400 MG Tab PO ONE (14:09)
[2019-11-19] MEDS: LORazepam 1 MG Tab PO PRN (19:48)
[2019-11-19] MEDS: Folic Acid 1 MG Tab PO SCH (20:39)
[2019-11-19] MEDS ORDERED: DOXEPIN PO SCH (21:00)
[2019-11-19] MEDS ORDERED: Doxepin 25 MG Cap PO SCH ×2 (21:15→22:00)
[2019-11-20] MEDS: Ciprofloxacin in D5W 400 MG in Premix Bag 1 BAG IV SCH ×2 (04:21)
[2019-11-20] MEDS: HYDROmorphone 1 MG/ML Syringe IVPUSH PRN ×3 (05:37→14:30)
[2019-11-20] MEDS: LORazepam 1 MG Tab PO PRN (05:38)
[2019-11-20 06:38] LABS: BLOOD UREA NITROGEN,BUN 6 mg/dL (7.0-18.0); CARBON DIOXIDE,CO2 24.1 mmol/L (21.0-32.0); CHLORIDE,CL 105 mmol/L (98-107); GLUCOSE RANDOM 138 mg/dL (74-106); POTASSIUM,K 3.4 mmol/L (3.5-5.1); SODIUM,NA 139 mmol/L (136-145)
[2019-11-20] MEDS ORDERED: Potassium Chloride 20 MEQ Tab.ER PO ONE (07:46)
[2019-11-20] MEDS ORDERED: Magnesium Sulfate/Water 2 GM in Premix Bag 1 BAG IV ONE (07:46)
[2019-11-20] MEDS: Lactated Ringers 1,000 ML IV SCH (08:01)
[2019-11-20] MEDS: Topiramate 50 MG Tab PO SCH (08:35)
[2019-11-20] MEDS: Nicotine 21 MG/24 Hr Patch TRDERM SCH (09:44)
[2019-11-20] MEDS: Pantoprazole 40 MG in Sodium Chloride 0.9% 10 ML IV SCH ×2 (09:48→10:01)
[2019-11-20] MEDS: metroNIDAZOLE/Normal Saline 500 MG in Premix Bag 1 BAG IV SCH (10:04)
[2019-11-20 12:47] VITALS: BP 142/77; PULSE 78
--- NOTE | 2019-11-20 14:13 | PCM.DCSUM1 ---
<Paris Quijano - Last Filed: 11/20/19 14:34> Discharge Summary - Hospital Course Free Text/Narrative:: Still active patient is a 54-year-old female with significant past medical history of known seizure disorder on Topamax, history of right lower extremity DVT currently on anticoagulation, obesity cigarette abuse hypertension presenting to the ED after having 2 to 3 days of abdominal pain cramping and mild diarrhea. Endorsed 3 days of constipation earlier and taking a large quantity of laxatives to help with loose stools; patient otherwise denies any fever chills body aches chest pain. ED course CT abdomen pelvis positive for diverticulitis; received 2 boluses of LR. Pain management with Dilaudid. Hospital course; initially made n.p.o. and advance to liquid diet; patient was initiated continue on ciprofloxacin and Flagyl. No fevers or chills or any other significant electrolyte abnormalities appreciated throughout stay. Patient on third day of admission requesting to go home. Tolerating soft diet. Discussed discharge plan with patient; recommended continuing soft diet and advancing as tolerated; if pain were to return advised to make n.p.o. Patient on discharge given additional 5 days of Augmentin twice daily; reviewed PDMP patient still had 1 to 2 days of Butler left up from previous encounter with another provider; provided 5 additional pain pills of Butler; advised of pain worsening despite above plan advised to return to ED. Patient understood and agreed. Follow-up set up with PCP. Admission date Consultations:none Procedures:none Hospital course: patient is a 54-year-old female with significant past medical history of known seizure disorder on Topamax, history of right lower extremity DVT currently on anticoagulation, obesity, hypertension; presenting to the ED after having 2 to 3 days of abdominal pain cramping and mild diarrhea. Endorsed 3 days of constipation earlier and taking a large quantity of laxatives to help with loose stools; patient otherwise denies any fever chills body aches chest pain. ED course CT abdomen pelvis positive for diverticulitis; received 2 boluses of LR. Pain management with Dilaudid. Hospital course; initially made n.p.o. and advance to liquid diet; patient was initiated continue on ciprofloxacin and Flagyl. No fevers or chills or any other significant electrolyte abnormalities appreciated throughout stay. Patient on third day of admission requesting to go home. Tolerating soft diet. Discussed discharge plan with patient; recommended continuing soft diet and advancing as tolerated; if pain were to return advised to make n.p.o. Patient on discharge given additional 5 days of Augmentin twice daily; reviewed PDMP patient still had 1 to 2 days of Butler left up from previous encounter with another provider; provided 5 additional pain pills of Butler; advised of pain worsening despite above plan advised to return to ED. Patient understood and agreed. Discussed at length w. pt. to discontinue use of ETOH secondary to current diverticulitis and seizure disorder. pt understood recommendation Follow-up set up with PCP. Discharge condition:stable Disposition:home Follow-up:PCP - Discharge Data Discharge Date: 11/20/19 Discharge Disposition: Home, Self-Care 01 Condition: Stable - Referral to Home Health Primary Care Physician: José Miguel Almodovar MD - Discharge Plan *PRESCRIPTION DRUG MONITORING PROGRAM REVIEWED*: Yes *COPY OF PRESCRIPTION DRUG MONITORING REPORT IN PATIENT LEIGH: No Prescriptions/Med Rec: Amoxicillin/Clavulanate K [Augmentin 875-125 MG] 1 tab PO TID 5 Days #15 tablet Hydrocodone/Acetaminophen [Butler 5-325 Tablet] 1 each PO DAILY PRN 5 Days #5 tablet PRN Reason: Pain Home Medications: Home Meds Doxepin HCl [Doxepin] 300 mg PO BEDTIME 04/24/17 [History] Lisinopril 20 mg PO QAM 04/24/17 [History] Rivaroxaban [Xarelto] 20 mg PO BEDTIME 04/24/17 [History] Topiramate 75 mg PO BID 04/24/17 [History] Omeprazole 40 mg PO BID 12/17/17 [History] Ezetimibe 10 mg PO DAILY 03/09/19 [History] Hydrocortisone Valerate 1 dose TOP DAILY PRN 03/09/19 [History] Amoxicillin/Clavulanate K [Augmentin 875-125 MG] 1 tab PO TID 5 Days #15 tablet 11/20/19 [Rx] Hydrocodone/Acetaminophen [Butler 5-325 Tablet] 1 each PO DAILY PRN 5 Days #5 tablet 11/20/19 [Rx] Patient Handouts: Acetaminophen; Hydrocodone tablets or capsules, Amoxicillin; Clavulanic Acid tablets, Diverticulitis, [id number] Referrals: José Miguel Almodovar MD [Primary Care Provider] - 11/28/19 9:00 am - Discharge Summary/Plan Comment DC Time >30 min.: No - Patient Data Vitals - Most Recent: Last Vital Signs Temp 97.5 F 11/20/19 11:39 Pulse 78 11/20/19 11:39 Resp 17 11/20/19 11:39 BP 142/77 H 11/20/19 11:39 Pulse Ox 94 L 11/20/19 11:39 Weight - Most Recent: 82 kg I&O - Last 24 hours: Intake & Output 11/19/19 11/20/19 11/20/19 22:59 06:59 14:59 Intake Total 1476 1796 Output Total 1000 1700 Balance 476 96 Lab Results - Last 24 hrs: Laboratory Results - last 24 hr 11/20/19 11/20/19 11/20/19 Range/Units 06:00 06:00 06:00 WBC 6.93 (4.0-11.0) K/uL RBC 3.62 L (4.30-5.90) M/uL Hgb 11.5 L (12.0-16.0) g/dL Hct 37.0 (36.0-46.0) % MCV 102.2 H (80.0-98.0) fL MCH 31.8 (27.0-32.0) pg MCHC 31.1 (31.0-37.0) g/dL RDW Std Deviation 57.9 (28.0-62.0) fl RDW Coeff of Arleen 16 H (11.0-15.0) % Plt Count 166 (150-400) K/uL MPV 10.20 (7.40-12.00) fL Neut % (Auto) 67.4 (48.0-80.0) % Lymph % (Auto) 15.6 L (16.0-40.0) % [place] % (Auto) 13.7 (0.0-15.0) % Eos % (Auto) 3.2 (0.0-7.0) % Baso % (Auto) 0.1 (0.0-1.5) % Neut # (Auto) 4.7 (1.4-5.7) K/uL Lymph # (Auto) 1.1 (0.6-2.4) K/uL [place] # (Auto) 1.0 H (0.0-0.8) K/uL Eos # (Auto) 0.2 (0.0-0.7) K/uL Baso # (Auto) 0.0 (0.0-0.1) K/uL Nucleated RBC % 0.0 /100WBC Nucleated RBCs # 0 K/uL Sodium 139 (136-145) mmol/L Potassium 3.4 L (3.5-5.1) mmol/L Chloride 105 (98-107) mmol/L Carbon Dioxide 24.1 (21.0-32.0) mmol/L BUN 6 L (7.0-18.0) mg/dL Creatinine 0.8 (0.6-1.0) mg/dL Est Cr Clr Drug Dosing 62.10 mL/min Estimated GFR (MDRD) > 60.0 ml/min Glucose 138 H (74-106) mg/dL Calcium 8.1 L (8.5-10.1) mg/dL Phosphorus 2.8 (2.6-4.7) mg/dL Magnesium 1.7 L (1.8-2.4) mg/dL Vitamin B12 492 (193-986) pg/mL Folate 29.50 (8.60-58.90) ng/mL Med Orders - Current: Current Medications Doxepin HCl (Sinequan) 300 mg PO BEDTIME [facility] Last Admin: 11/19/19 21:59 Dose: 300 mg Folic Acid (Folic Acid) 1 mg PO BEDTIME [facility] Last Admin: 11/19/19 20:39 Dose: 1 mg Hydromorphone HCl (Dilaudid) 1 mg IVPUSH Q4H PRN PRN Reason: Pain Last Admin: 11/20/19 10:17 Dose: 1 mg Ciprofloxacin/Dextrose 400 mg/ (Premix) 200 mls @ 200 mls/hr IV Q12H [facility] Last Admin: 11/20/19 04:21 Dose: 200 mls/hr Pantoprazole Sodium 40 mg/ (Sodium Chloride) 10 mls @ 300 mls/hr IV DAILY [facility] Last Admin: 11/20/19 10:01 Dose: 300 mls/hr Metronidazole 500 mg/ Premix 100 mls @ 100 mls/hr IV Q8H [facility] Last Admin: 11/20/19 10:04 Dose: 100 mls/hr Lactated Ringer's (Ringers, Lactated) 1,000 mls @ 125 mls/hr IV ASDIRECTED [facility] Last Admin: 11/20/19 08:01 Dose: 125 mls/hr Lorazepam (Ativan) 1 mg PO Q6H PRN PRN Reason: Anxiety Last Admin: 11/20/19 05:38 Dose: 1 mg Nicotine (Habitrol) 21 mg TRDERM DAILY [facility] Last Admin: 11/20/19 09:44 Dose: Not Given Ondansetron HCl (Zofran) 4 mg IVPUSH Q6H PRN PRN Reason: Nausea/Vomiting Hydrocortisone (Valerate 0.2% Cream) 1 each TOP DAILY PRN PRN Reason: Other Rivaroxaban (Xarelto) 20 mg PO BEDTIME [facility] Last Admin: 11/18/19 21:09 Dose: 20 mg Topiramate (Topamax) 75 mg PO BID [facility] Last Admin: 11/20/19 08:35 Dose: 75 mg Discontinued Medications Doxepin HCl (Sinequan) 300 mg PO BEDTIME [facility] Last Admin: 11/19/19 00:31 Dose: 300 mg Doxepin HCl (Sinequan) 300 mg PO BEDTIME [facility] Fentanyl (Fentanyl) 50 mcg IVPUSH ONETIME ONE Stop: 11/18/19 14:48 Last Admin: 11/18/19 14:59 Dose: 50 mcg Fentanyl (Fentanyl) 50 mcg IVPUSH ONETIME ONE Stop: 11/18/19 15:49 Last Admin: 11/18/19 16:15 Dose: 50 mcg Lactated Ringer's (Ringers, Lactated) 1,000 mls @ 1,000 mls/hr IV .BOLUS ONE Stop: 11/18/19 15:46 Last Admin: 11/18/19 14:54 Dose: 1,000 mls/hr Lactated Ringer's (Ringers, Lactated) 1,000 mls @ 1,000 mls/hr IV .BOLUS ONE Stop: 11/18/19 17:34 Last Admin: 11/18/19 16:49 Dose: 1,000 mls/hr Metronidazole 500 mg/ Premix 100 mls @ 100 mls/hr IV ONETIME ONE Stop: 11/18/19 17:34 Last Admin: 11/18/19 16:49 Dose: 100 mls/hr Sodium Chloride (Normal Saline) 1,000 mls @ 120 mls/hr IV STAT ONE Stop: 11/19/19 01:32 Last Admin: 11/18/19 17:50 Dose: 120 mls/hr Thiamine HCl 100 mg/ Sodium (Chloride) 101 mls @ 202 mls/hr IV ONETIME ONE Stop: 11/18/19 17:16 Last Admin: 11/18/19 21:03 Dose: 202 mls/hr Magnesium Sulfate 2 gm/ Premix 50 mls @ 50 mls/hr IV ONETIME ONE Stop: 11/20/19 08:45 Last Admin: 11/20/19 08:31 Dose: 50 mls/hr Iopamidol (Isovue-370 (76%)) 100 ml IVPUSH ONETIME ONE Stop: 11/18/19 16:16 Last Admin: 11/18/19 16:16 Dose: 100 ml Lisinopril (Prinivil) 20 mg PO QAM [facility] Lorazepam (Ativan) 0 mg IVPUSH Q4H PRN; Protocol PRN Reason: Agitation Last Admin: 11/19/19 00:41 Dose: 2 mg Magnesium Oxide (Magnesium Oxide) 800 mg PO ONETIME ONE Stop: 11/19/19 14:10 Last Admin: 11/19/19 14:31 Dose: 800 mg Omeprazole (Omeprazole) 40 mg PO DAILY [facility] Last Admin: 11/18/19 17:43 Dose: Not Given Doxepin 300mg Cap 1 each PO BEDTIME [facility] Last Admin: 11/19/19 22:24 Dose: Not Given Potassium Chloride (Klor-Con M20) 40 meq PO ONETIME ONE Stop: 11/20/19 07:47 Last Admin: 11/20/19 08:34 Dose: 40 meq Sodium Chloride (Saline Flush) 10 ml FLUSH ASDIRECTED PRN PRN Reason: Keep Vein Open Last Admin: 11/18/19 14:55 Dose: 10 ml Sodium Chloride (Saline Flush) 2.5 ml FLUSH ASDIRECTED PRN PRN Reason: Keep Vein Open Last Admin: 11/18/19 14:55 Dose: 2.5 ml Sodium Chloride (Normal Saline) 10 ml IV ASDIRECTED PRN PRN Reason: IV Use Last Admin: 11/18/19 14:54 Dose: 10 ml <Yen Valiente - Last Filed: 11/20/19 23:48> Discharge Summary - Hospital Course Free Text/Narrative:: I have seen and evaluated the patient and agree with the residents note unless specified in my note - Referral to Home Health Primary Care Physician: José Miguel Almodovar MD - Discharge Diagnosis/Problem(s) (1) Sigmoid diverticulitis SNOMED Code(s): 037183540 ICD Code: K57.32 - DVTRCLI OF LG INT W/O PERFORATION OR ABSCESS W/O BLEEDING Status: Acute (2) Abdominal pain SNOMED Code(s): 62534783 ICD Code: R10.9 - UNSPECIFIED ABDOMINAL PAIN Status: Acute Priority: High Onset Date: 06/08/14 - Patient Data Vitals - Most Recent: Last Vital Signs Temp 36.4 C 11/20/19 11:39 Pulse 78 11/20/19 11:39 Resp 17 11/20/19 11:39 BP 142/77 H 11/20/19 11:39 Pulse Ox 94 L 11/20/19 11:39 I&O - Last 24 hours: Intake & Output 11/20/19 11/20/19 11/21/19 14:59 22:59 06:59 Intake Total 100 1640 Output Total 1500 Balance 100 140 Lab Results - Last 24 hrs: Laboratory Results - last 24 hr 11/20/19 11/20/19 11/20/19 Range/Units 06:00 06:00 06:00 WBC 6.93 (4.0-11.0) K/uL RBC 3.62 L (4.30-5.90) M/uL Hgb 11.5 L (12.0-16.0) g/dL Hct 37.0 (36.0-46.0) % MCV 102.2 H (80.0-98.0) fL MCH 31.8 (27.0-32.0) pg MCHC 31.1 (31.0-37.0) g/dL RDW Std Deviation 57.9 (28.0-62.0) fl RDW Coeff of Arleen 16 H (11.0-15.0) % Plt Count 166 (150-400) K/uL MPV 10.20 (7.40-12.00) fL Neut % (Auto) 67.4 (48.0-80.0) % Lymph % (Auto) 15.6 L (16.0-40.0) % [place] % (Auto) 13.7 (0.0-15.0) % Eos % (Auto) 3.2 (0.0-7.0) % Baso % (Auto) 0.1 (0.0-1.5) % Neut # (Auto) 4.7 (1.4-5.7) K/uL Lymph # (Auto) 1.1 (0.6-2.4) K/uL [place] # (Auto) 1.0 H (0.0-0.8) K/uL Eos # (Auto) 0.2 (0.0-0.7) K/uL Baso # (Auto) 0.0 (0.0-0.1) K/uL Nucleated RBC % 0.0 /100WBC Nucleated RBCs # 0 K/uL Sodium 139 (136-145) mmol/L Potassium 3.4 L (3.5-5.1) mmol/L Chloride 105 (98-107) mmol/L Carbon Dioxide 24.1 (21.0-32.0) mmol/L BUN 6 L (7.0-18.0) mg/dL Creatinine 0.8 (0.6-1.0) mg/dL Est Cr Clr Drug Dosing 62.10 mL/min Estimated GFR (MDRD) > 60.0 ml/min Glucose 138 H (74-106) mg/dL Calcium 8.1 L (8.5-10.1) mg/dL Phosphorus 2.8 (2.6-4.7) mg/dL Magnesium 1.7 L (1.8-2.4) mg/dL Vitamin B12 492 (193-986) pg/mL Folate 29.50 (8.60-58.90) ng/mL Med Orders - Current: Current Medications Discontinued Medications Doxepin HCl (Sinequan) 300 mg PO BEDTIME [facility] Last Admin: 11/19/19 00:31 Dose: 300 mg Doxepin HCl (Sinequan) 300 mg PO BEDTIME [facility] Doxepin HCl (Sinequan) 300 mg PO BEDTIME [facility] Last Admin: 11/19/19 21:59 Dose: 300 mg Fentanyl (Fentanyl) 50 mcg IVPUSH ONETIME ONE Stop: 11/18/19 14:48 Last Admin: 11/18/19 14:59 Dose: 50 mcg Fentanyl (Fentanyl) 50 mcg IVPUSH ONETIME ONE Stop: 11/18/19 15:49 Last Admin: 11/18/19 16:15 Dose: 50 mcg Folic Acid (Folic Acid) 1 mg PO BEDTIME [facility] Last Admin: 11/19/19 20:39 Dose: 1 mg Hydromorphone HCl (Dilaudid) 1 mg IVPUSH Q4H PRN PRN Reason: Pain Last Admin: 11/20/19 14:30 Dose: 1 mg Lactated Ringer's (Ringers, Lactated) 1,000 mls @ 1,000 mls/hr IV .BOLUS ONE Stop: 11/18/19 15:46 Last Admin: 11/18/19 14:54 Dose: 1,000 mls/hr Lactated Ringer's (Ringers, Lactated) 1,000 mls @ 1,000 mls/hr IV .BOLUS ONE Stop: 11/18/19 17:34 Last Admin: 11/18/19 16:49 Dose: 1,000 mls/hr Ciprofloxacin/Dextrose 400 mg/ (Premix) 200 mls @ 200 mls/hr IV Q12H [facility] Last Admin: 11/20/19 04:21 Dose: 200 mls/hr Metronidazole 500 mg/ Premix 100 mls @ 100 mls/hr IV ONETIME ONE Stop: 11/18/19 17:34 Last Admin: 11/18/19 16:49 Dose: 100 mls/hr Sodium Chloride (Normal Saline) 1,000 mls @ 120 mls/hr IV STAT ONE Stop: 11/19/19 01:32 Last Admin: 11/18/19 17:50 Dose: 120 mls/hr Thiamine HCl 100 mg/ Sodium (Chloride) 101 mls @ 202 mls/hr IV ONETIME ONE Stop: 11/18/19 17:16 Last Admin: 11/18/19 21:03 Dose: 202 mls/hr Pantoprazole Sodium 40 mg/ (Sodium Chloride) 10 mls @ 300 mls/hr IV DAILY [facility] Last Admin: 11/20/19 10:01 Dose: 300 mls/hr Metronidazole 500 mg/ Premix 100 mls @ 100 mls/hr IV Q8H [facility] Last Admin: 11/20/19 10:04 Dose: 100 mls/hr Lactated Ringer's (Ringers, Lactated) 1,000 mls @ 125 mls/hr IV ASDIRECTED [facility] Last Admin: 11/20/19 08:01 Dose: 125 mls/hr Magnesium Sulfate 2 gm/ Premix 50 mls @ 50 mls/hr IV ONETIME ONE Stop: 11/20/19 08:45 Last Admin: 11/20/19 08:31 Dose: 50 mls/hr Iopamidol (Isovue-370 (76%)) 100 ml IVPUSH ONETIME ONE Stop: 11/18/19 16:16 Last Admin: 11/18/19 16:16 Dose: 100 ml Lisinopril (Prinivil) 20 mg PO QAM [facility] Lorazepam (Ativan) 0 mg IVPUSH Q4H PRN; Protocol PRN Reason: Agitation Last Admin: 11/19/19 00:41 Dose: 2 mg Lorazepam (Ativan) 1 mg PO Q6H PRN PRN Reason: Anxiety Last Admin: 11/20/19 05:38 Dose: 1 mg Magnesium Oxide (Magnesium Oxide) 800 mg PO ONETIME ONE Stop: 11/19/19 14:10 Last Admin: 11/19/19 14:31 Dose: 800 mg Nicotine (Habitrol) 21 mg TRDERM DAILY [facility] Last Admin: 11/20/19 09:44 Dose: Not Given Omeprazole (Omeprazole) 40 mg PO DAILY [facility] Last Admin: 11/18/19 17:43 Dose: Not Given Ondansetron HCl (Zofran) 4 mg IVPUSH Q6H PRN PRN Reason: Nausea/Vomiting Hydrocortisone (Valerate 0.2% Cream) 1 each TOP DAILY PRN PRN Reason: Other Doxepin 300mg Cap 1 each PO BEDTIME [facility] Last Admin: 11/19/19 22:24 Dose: Not Given Potassium Chloride (Klor-Con M20) 40 meq PO ONETIME ONE Stop: 11/20/19 07:47 Last Admin: 11/20/19 08:34 Dose: 40 meq Rivaroxaban (Xarelto) 20 mg PO BEDTIME [facility] Last Admin: 11/18/19 21:09 Dose: 20 mg Sodium Chloride (Saline Flush) 10 ml FLUSH ASDIRECTED PRN PRN Reason: Keep Vein Open Last Admin: 11/18/19 14:55 Dose: 10 ml Sodium Chloride (Saline Flush) 2.5 ml FLUSH ASDIRECTED PRN PRN Reason: Keep Vein Open Last Admin: 11/18/19 14:55 Dose: 2.5 ml Sodium Chloride (Normal Saline) 10 ml IV ASDIRECTED PRN PRN Reason: IV Use Last Admin: 11/18/19 14:54 Dose: 10 ml Topiramate (Topamax) 75 mg PO BID [facility] Last Admin: 11/20/19 08:35 Dose: 75 mg
== END 2019-11-20 15:30 | disposition home or self-care (01) ==
LOC: MW.ED 13:38 → MW.MS 16:46
PROVIDERS: ADMIT Student in an Organized Health Care Education/Training Program; ATTEND Student in an Organized Health Care Education/Training Program
DX: K57.32 Diverticulitis of large intestine without perforation or abscess without bleeding (principal); I10 Essential (primary) hypertension; E03.9 Hypothyroidism, unspecified; E66.9 Obesity, unspecified; J45.909 Unspecified asthma, uncomplicated; K21.9 Gastro-esophageal reflux disease without esophagitis; F41.9 Anxiety disorder, unspecified; E78.00 Pure hypercholesterolemia, unspecified; G40.909 Epilepsy, unspecified, not intractable, without status epilepticus; R30.0 Dysuria; F32.9 Major depressive disorder, single episode, unspecified; R74.0 Nonspecific elevation of levels of transaminase and lactic acid dehydrogenase [LDH]; F17.210 Nicotine dependence, cigarettes, uncomplicated; D53.9 Nutritional anemia, unspecified; D72.829 Elevated white blood cell count, unspecified; Z86.718 Personal history of other venous thrombosis and embolism; Z88.8 Allergy status to other drugs, medicaments and biological substances; Z79.899 Other long term (current) drug therapy; Z68.33 Body mass index [BMI] 33.0-33.9, adult
CPT/HCPCS: 36415; 74177; 80048; 80076; 81003; 82607; 82746; 83605; 83690; 83735; 84100; 85025; 85610; 96361; 96365; 96366; 96367; 96375; 96376; 99285; A9270; C9113; G0378; J0744; J1170; J2060; J3010; J3411; J3475; J3490; J7030; J7050; J7120; Q9967; 99284

== ENCOUNTER 2020-01-04 10:12 | Day surgery (SDC) | payer BC ==
[~2020-01-04 10:12] MED LIST changes: +Lactated Ringers 1,000 ML IV SCH; +Sodium Chloride 0.9% 10 ML SDV IV PRN; +Sodium Chloride 0.9% 10 ML Syringe FLUSH PRN; +Sodium Chloride 0.9% 2.5 ML Syringe FLUSH PRN
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
[2020-01-04] MEDS ORDERED: Propofol 200 MG/20 ML SDV ONE (12:42)
[2020-01-04] MEDS ORDERED: ceFAZolin/Dextrose,Iso-Osmotic 2 GM/50 ML Duplex Bag IV ONE (12:42)
--- NOTE | 2020-01-04 13:12 | PCM.POSTAN ---
POST ANESTHESIA ASSESSMENT - MENTAL STATUS Mental Status: Alert, Oriented - VITAL SIGNS Vital Signs: Last Vital Signs Temp 35.9 C L 01/04/20 10:40 Pulse 85 01/04/20 13:08 Resp 14 01/04/20 13:08 BP 115/73 01/04/20 13:08 Pulse Ox 96 01/04/20 13:08 - RESPIRATORY Respiratory Status: Respiratory Rate WNL, Airway Patent, O2 Saturation Stable - CARDIOVASCULAR CV Status: Pulse Rate WNL, Blood Pressure Stable - GASTROINTESTINAL GI Status: No Symptoms - PAIN Pain Score: 0 - POST OP HYDRATION Hydration Status: Adequate & Stable
--- NOTE | 2020-01-04 13:41 | PCM48HPAN ---
Post Anesthesia Note - EVALUATION WITHIN 48HRS OF ANESTHETIC Vital Signs in Normal Range: Yes Patient Participated in Evaluation: Yes Respiratory Function Stable: Yes Airway Patent: Yes Cardiovascular Function Stable: Yes Hydration Status Stable: Yes Pain Control Satisfactory: Yes Nausea and Vomiting Control Satisfactory: Yes Mental Status Recovered: Yes Vital Signs: Last Vital Signs Temp 35.9 C L 01/04/20 10:40 Pulse 83 01/04/20 13:13 Resp 14 01/04/20 13:13 BP 128/88 01/04/20 13:13 Pulse Ox 96 01/04/20 13:13 - COMMENTS/OBSERVATIONS Free Text/Narrative:: No anesthesia problems
[2020-01-04 14:43] VITALS: BP 111/68; PULSE 82
--- NOTE | 2020-01-04 15:06 | PCM.OPNOTE ---
- General Post-Op/Procedure Note Date of Surgery/Procedure: 01/04/20 Operative Procedure(s): Diagnostic colonoscopy Findings: Diverticulosis of the sigmoid colon Pre Op Diagnosis: HIstory of diverticulitis Post-Op Diagnosis: Diverticulosis Anesthesia Technique: MERVAT Primary Surgeon: Marah Becker Condition: Good Free Text/Narrative:: Intake & Output 01/04/20 01/04/20 01/04/20 06:59 14:59 22:59 Intake Total 300 Balance 300
--- NOTE | 2020-01-05 17:32 | OR ---
SURGEON: MARAH BECKER MD DATE OF PROCEDURE: 01/04/2020 PREOPERATIVE DIAGNOSIS: History of diverticulitis. POSTOPERATIVE DIAGNOSIS: Diverticulosis of the sigmoid colon. PROCEDURE PERFORMED: Diagnostic colonoscopy. PRIMARY SURGEON: Marah Becker MD ANESTHESIA: MAC. INSTRUMENT USED: Olympus colonoscope. EXTENT OF EXAM: To the cecum. PREPARATION: Good. LIMITATIONS: None. INDICATIONS FOR EXAMINATION: The patient is a 54-year-old female who was hospitalized 2 months ago with diverticulitis. This was treated successfully with IV antibiotics. She is here for a followup colonoscopy. The patient and I discussed the procedure; expected perioperative course; and risks including bleeding, infection, or damage to surrounding structures including perforation. The patient verbalized understanding and wishes to proceed. PROCEDURE IN DETAIL: The patient was brought into the endoscopy suite and placed in the left lateral decubitus position. A time-out was completed verifying the patient's name, age, date of , allergies, and procedure to be performed. Monitored anesthesia care was induced and continuous oxygen was provided via nasal cannula throughout the procedure. After adequate sedation was achieved, a digital rectal exam was performed. This exam was within normal limits. A well-lubricated colonoscope was inserted in the rectum and advanced under direct visualization to the level of the cecum. The cecum was identified by both visual and anatomic landmarks. A photograph was taken of the cecal cap as well as with the scope retroflexed within the cecum. The scope was then fully withdrawn while examining the color, texture, anatomy, and integrity of the mucosa from the cecum to the anal canal. The patient was found to have diverticulosis throughout the sigmoid colon. The scope was then brought into the rectum and retroflexed to allow visualization of the anal canal opening. This appeared normal and a photograph was taken. The scope was then straightened out and fully withdrawn. The cecum to anus time was 12 minutes. The patient tolerated the procedure well and was transferred to the PACU in stable condition. ENDOSCOPIC DIAGNOSIS: Diverticulosis of the sigmoid colon. RECOMMENDATIONS: Follow up in clinic in 10 years for repeat colonoscopy. 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
== END 2020-01-04 13:43 | disposition home or self-care (01) ==
LOC: MW.SDS 10:12
PROVIDERS: ATTEND Surgery
DX: K57.30 Diverticulosis of large intestine without perforation or abscess without bleeding (principal); E78.00 Pure hypercholesterolemia, unspecified; I10 Essential (primary) hypertension; J45.909 Unspecified asthma, uncomplicated; G47.30 Sleep apnea, unspecified; K21.9 Gastro-esophageal reflux disease without esophagitis; E66.9 Obesity, unspecified; F17.210 Nicotine dependence, cigarettes, uncomplicated; F41.8 Other specified anxiety disorders; E78.5 Hyperlipidemia, unspecified; M81.0 Age-related osteoporosis without current pathological fracture; E03.9 Hypothyroidism, unspecified; M19.012 Primary osteoarthritis, left shoulder; F17.290 Nicotine dependence, other tobacco product, uncomplicated; Z79.01 Long term (current) use of anticoagulants; Z88.6 Allergy status to analgesic agent; Z79.899 Other long term (current) drug therapy; Z68.31 Body mass index [BMI] 31.0-31.9, adult; Z87.09 Personal history of other diseases of the respiratory system
CPT/HCPCS: 45378; J0690; J2001; J2250; J2704; J3010; J7120

== ENCOUNTER 2020-07-27 14:28 | Emergency (ER) | payer BC ==
--- NOTE | 2020-07-27 15:56 | CR ---
INDICATION: Injury TECHNIQUE: Three views right ankle COMPARISON: None FINDINGS AND IMPRESSION: There is an acute mildly comminuted oblique fracture of the distal fibular diametaphysis which is nondisplaced. Fracture at the tip of the lateral malleolus is indeterminate in acuity. This could represent an acute avulsion fracture however it appears somewhat well corticated and could also be chronic. Soft tissue swelling overlies the lateral malleolus. There is no other acute fracture. No dislocation. The ankle mortise is intact. No suspicious bone lesion. Dictated by Maximus Roth MD @ Jul 27 2020 3:52PM Signed by Dr. Maximus Roth @ Jul 27 2020 3:55PM
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
[2020-07-27] MEDS ORDERED: Ketorolac 60 MG/2 ML SDV IM ONE (16:43)
--- NOTE | 2020-07-27 16:53 | CR ---
Indication: Injury and pain Technique: Left foot 2 views Comparison: None Findings: Bones: Postoperative changes present in the distal head of the 2nd metatarsal including the presence of a hardware screw no acute fracture. Mild hallux valgus deformity. Otherwise normal alignment. Joint spaces: Moderate arthritic changes in the 1st MTP joint. Soft tissues: Unremarkable. Impression: No sign of acute injury. Dictated by Alfredo Newberry MD @ Jul 27 2020 4:50PM Signed by Dr. Alfredo Newberry @ Jul 27 2020 4:52PM
[2020-07-27 17:40] VITALS: BP 122/89; PULSE 91
== END 2020-07-27 17:35 | disposition home or self-care (01) ==
LOC: MW.ED 14:28
DX: S82.831A Other fracture of upper and lower end of right fibula, initial encounter for closed fracture (principal); I10 Essential (primary) hypertension; K21.9 Gastro-esophageal reflux disease without esophagitis; J45.909 Unspecified asthma, uncomplicated; G40.909 Epilepsy, unspecified, not intractable, without status epilepticus; E66.9 Obesity, unspecified; Z68.32 Body mass index [BMI] 32.0-32.9, adult; Z86.718 Personal history of other venous thrombosis and embolism; Z79.899 Other long term (current) drug therapy; Z88.8 Allergy status to other drugs, medicaments and biological substances; Z91.018 Allergy to other foods; Z91.048 Other nonmedicinal substance allergy status; Z79.01 Long term (current) use of anticoagulants; Z72.0 Tobacco use; W01.0XXA Fall on same level from slipping, tripping and stumbling without subsequent striking against object, initial encounter; Y93.01 Activity, walking, marching and hiking; Y92.000 Kitchen of unspecified non-institutional (private) residence as the place of occurrence of the external cause
CPT/HCPCS: 29125; 73610; 73620; 96372; 99283; J1885; 29515

== ENCOUNTER 2020-11-28 13:58 | Observation (INO) | payer BC ==
[2020-11-28] MEDS ORDERED: Alum Hydrox/Mag Hydrox/Simeth 15 ML, Lidocaine 2% 5 ML PO ONE ×2 (14:27)
[2020-11-28] MEDS ORDERED: Famotidine 20 MG Tab PO ONE (14:27)
[2020-11-28 15:21] LABS: BLOOD UREA NITROGEN,BUN 7 mg/dL (7.0-18.0); CARBON DIOXIDE,CO2 19.9 mmol/L (21.0-32.0); CHLORIDE,CL 105 mmol/L (98-107); GLUCOSE RANDOM 115 mg/dL (74-106); SODIUM,NA 141 mmol/L (136-145)
[2020-11-28] MEDS ORDERED: Magnesium Sulfate (4.06 MEQ/ML) 5 GM/10 ML SDV IV STA (15:25)
[2020-11-28] MEDS ORDERED: Potassium Chloride 10% 20 MEQ/15 ML Soln 30 ML UD Cup PO ONE (15:25)
--- NOTE | 2020-11-28 15:26 | CR ---
Indication: Chest pain Technique: Chest 1 view Comparison: May 01, 2019 Findings/Impression: Cardiovascular and mediastinum: Heart size and vasculature are normal in caliber and appearance. Mediastinum is within normal limits. Lungs and pleural space: Lungs are clear. No sign of infiltrate or mass. No sign of pleural effusion. No pneumothorax. Bones and soft tissues: Status post reverse left shoulder arthroplasty. Dictated by Skylar Stephenson MD @ 11/28/2020 3:25:[address] Skylar Stephenson @ Nov 28 2020 3:25PM
[2020-11-28] MEDS ORDERED: Dextrose 5%-Lactated Ringers 1,000 ML IV SCH (15:30)
[2020-11-28] MEDS ORDERED: Magnesium Sulfate/Water 2 GM/50 ML BAG IV ONE (15:45)
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
[2020-11-28] MEDS ORDERED: Iopamidol 755 MG/ML 500 ML Multipack Bottle IVPUSH STA (16:14)
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
--- NOTE | 2020-11-28 16:57 | PCM.EKG ---
#1 Interpretation EKG Date: 11/28/20 Time: 14:04 Rhythm: NSR Rate (Beats/Min): 89 [place]: Normal P-Wave: Present QRS: Normal ST-T: Normal (T wave inversion Leads V2-V6, III) QT: Normal Comparison: Change From Previous EKG (01/15/15: Prior did not have T wave inversions) EKG Interpretation Comments: Sinus Rhythm with anterolateral T wave inversions
--- NOTE | 2020-11-28 16:58 | PCM.EKG ---
#2 Interpretation EKG Date: 11/28/20 Time: 14:49 Rhythm: NSR Rate (Beats/Min): 94 [place]: Normal P-Wave: Present QRS: Normal ST-T: Normal (T wave inversions leads V2-V6, III, aVF) QT: Normal Comparison: No Change (Today) EKG Interpretation Comments: Sinus Rhythm with anterolateral T wave inversions.
--- NOTE | 2020-11-28 17:05 | CT ---
INDICATION: Chest pain. History of DVT. Rule out pulmonary embolism. COMPARISON: Chest radiograph from today. Report of the CT pulmonary angiogram from 10/10/2014 TECHNIQUE: CT examination of the chest was performed with the uneventful intravenous administration of 100 cc of Isovue 370 while 1 and 1.5 mm thick axial sections were obtained through the pulmonary arteries. Please note that all CT scans at this facility use dose modulation, iterative reconstruction, and/or weight-based dosing when appropriate to reduce radiation dose to as low as reasonably achievable. FINDINGS: : There is no sign of pulmonary embolism, with normal enhancement and branching of the pulmonary arteries. There is new mild atelectasis of the posterior lung bases adjacent to mild eventration of the hemidiaphragms bilaterally. There is stable mild diffuse ground-glass pulmonary fibrosis. There are stable bullae in the lateral left midlung in the upper lobe and in the anterior portion of the superior segment of the left lower lobe adjacent to the hilum. There is no sign of mediastinal or hilar mass or adenopathy. There is new mild LAD coronary calcification. The heart is otherwise normal in appearance for the patient`s age. There is age appropriate appearance of the thoracic aorta and ascending great vessels. There is no sign of supraclavicular or axillary mass or adenopathy. The visualized superior liver remains low in density representing fatty infiltration. The rest of the liver is normal in appearance. The visualized superior spleen, pancreas, kidneys, and adrenals are normal in appearance. There are stable mild superior T4 and T5 endplate depressions consistent with old mild endplate fractures. The rest of the osseous structures are unremarkable. IMPRESSION: No sign of pulmonary embolism. New mild atelectasis of the posterior lung bases adjacent to mild eventration of the hemidiaphragms. Stable mild ground-glass pulmonary fibrosis. Stable fatty infiltration of the liver. New mild LAD coronary calcification. Please note that all CT scans at this facility use dose modulation, iterative reconstruction, and/or weight-based dosing when appropriate to reduce radiation dose to as low as reasonably achievable. Dictated by Bob Grossman MD @ 11/28/2020 5:04:[address] Bob Grossman @ Nov 28 2020 5:04PM
--- NOTE | 2020-11-28 17:23 | PCM.EKG ---
#3 Interpretation EKG Date: 11/28/20 Time: 17:08 Rhythm: NSR Rate (Beats/Min): 90 [place]: Normal P-Wave: Present QRS: Normal ST-T: Normal QT: Normal Comparison: No Change EKG Interpretation Comments: Sinus Rhythm with anterolateral T wave inversions
[2020-11-28] MEDS ORDERED: Nicotine 14 MG/24 Hr Patch TRDERM ONE (18:08)
[2020-11-28] MEDS ORDERED: ALPRAZolam 0.25 MG Tab PO ONE (18:09)
[2020-11-28] MEDS ORDERED: Albuterol/Ipratropium 3.0-0.5 MG/3 ML Neb Soln NEB PRN (19:29)
[2020-11-28] MEDS ORDERED: Morphine 10 MG/ML Syringe IVPUSH PRN (19:29)
[2020-11-28] MEDS ORDERED: Ondansetron 4 MG Tab.DIS PO PRN (19:29)
[2020-11-28] MEDS ORDERED: Acetaminophen 325 MG Tab PO PRN (19:29)
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
[2020-11-28 20:12] LABS: HEMOGLOBIN A1C 5.3 %
[2020-11-28] MEDS: Topiramate 50 MG Tab PO SCH (20:26)
[2020-11-28] MEDS ORDERED: Rivaroxaban 10 MG Tab PO SCH (21:00)
[2020-11-28] MEDS ORDERED: Doxepin 25 MG Cap PO SCH (21:00)
[2020-11-29 05:53] LABS: BLOOD UREA NITROGEN,BUN 7 mg/dL (7.0-18.0); CARBON DIOXIDE,CO2 24.8 mmol/L (21.0-32.0); CHLORIDE,CL 107 mmol/L (98-107); GLUCOSE RANDOM 93 mg/dL (74-106); POTASSIUM,K 3.7 mmol/L (3.5-5.1); SODIUM,NA 141 mmol/L (136-145)
[2020-11-29 08:10] VITALS: BP 126/84; PULSE 81
[2020-11-29] MEDS ORDERED: Morphine 2 MG/ML SYRINGE IVPUSH PRN (08:45)
[2020-11-29] MEDS ORDERED: Lisinopril 10 MG Tab PO SCH (09:00)
[2020-11-29] MEDS ORDERED: Pantoprazole 40 MG in Sodium Chloride 0.9% 10 ML IV SCH (09:00)
[2020-11-29] MEDS ORDERED: Ezetimibe 10 MG Tab PO SCH (09:00)
[2020-11-29] MEDS ORDERED: Thiamine 100 MG Tab PO SCH (09:00)
[2020-11-29] MEDS: Topiramate 50 MG Tab PO SCH (09:06)
[2020-11-29] MEDS ORDERED: Pneumococcal 23-Valent Conjugate Vaccine 0.5 ML Syringe IM ONE (12:00)
[2020-11-29] MEDS ORDERED: Pneumococcal Polyvalent-23 Vaccine 0.5 ML SDV IM ONE (12:00)
--- NOTE | 2020-11-29 14:24 | PCM.DCSUM1 ---
Discharge Summary - Hospital Course Brief History: Patient is a 55-year-old female with past medical history of hypertension, hyperlipidemia, anxiety, history of clotting disorder on Xarelto, history of tobacco abuse disorder, and seizure disorder. Patient was admitted for chest pain noted since 2 days, described as being 4-5 on the pain scale, pressure in her chest denies it radiating anywhere, denies any alleviating or aggravating factors, denies any previous similar episodes. Denies trying taking anything for it. Furthermore, denies any palpitations, shortness of breath, pleuritic chest pain, diaphoresis. ER course: Labs CBC, CMP, indicated mild hypomagnesium and moderate hypokalemia, both were replaced appropriately. INR, 2 times troponins were normal, chest x-rayno cardiopulmonary changes, EKGno ST elevation, however newfound T wave inversions. CT angionegative for PE, stable mild groundglass opacities, incidental finding of fatty liver, new mild LAD coronary calcification. Patient also received bolus of LR with dextrose. Diagnosis: Stroke: No - Discharge Data Discharge Date: 11/29/20 Discharge Disposition: Home, Self-Care 01 Condition: Stable - Referral to Home Health Primary Care Physician: José Miguel Almodovar MD - Patient Summary/Data Hospital Course: Admission diagnoses Atypical chest pain Discharge diagnoses Atypical chest pain Ronnie was admitted secondary to chest pain. She was monitored on telemetry. CT angio was performed which showed new LAD calcification. Cardiology Dr. Rome was consulted from the ER. With telemetry and EKG findings he recommended no urgent catheterization. Recommended outpatient stress test with evaluation in the hospital overnight to rule out ACS. Troponins have been negative. Patient is stable on her statin as well as Xarelto. She was counseled heavily on tobacco use and the goal for her to quit. At this time she did not seem extremely motivated but willing to quit smoking a pack and half a day and cut down to a pack. She will have outpatient stress test ordered stress test nurse will contact her with date and time. She is to avoid strenuous activity. She is to continue all home medications at this time. Hypokalemia and hypomagnesemia noted on admission. These were supplemented and today at normal levels. She is to follow-up with PCP in 1 to 2 weeks. Return to the ER clinic concerns should arise. - Patient Instructions Diet: Heart Healthy Diet Activity: No Strenuous Activities Showering/Bathing: May Shower Notify Provider of: Fever, Increased Pain, Swelling and Redness, Drainage, Nausea and/or Vomiting - Discharge Plan *PRESCRIPTION DRUG MONITORING PROGRAM REVIEWED*: Not Applicable *COPY OF PRESCRIPTION DRUG MONITORING REPORT IN PATIENT LEIGH: Not Applicable Home Medications: Home Meds Doxepin HCl [Doxepin] 300 mg PO BEDTIME 04/24/17 [History] Lisinopril 20 mg PO QAM 04/24/17 [History] Rivaroxaban [Xarelto] 20 mg PO BEDTIME 04/24/17 [History] Topiramate 75 mg PO BID 04/24/17 [History] Omeprazole 40 mg PO BID 12/17/17 [History] Ezetimibe 10 mg PO DAILY 03/09/19 [History] Hydrocortisone Valerate 1 dose TOP DAILY PRN 03/09/19 [History] Calcium Carbonate [Calcium] 1,200 mg PO BID 01/01/20 [History] Thiamine Mononitrate (Vit B1) [Vitamin B-1] 1 tab PO DAILY 01/01/20 [History] Oxygen Therapy Mode: Room Air Patient Handouts: Nonspecific Chest Pain, Adult, [id number] Referrals: José Miguel Almodovar MD [Primary Care Provider] - 12/12/20 10:30 am - Discharge Summary/Plan Comment DC Time >30 min.: No - Patient Data Vitals - Most Recent: Last Vital Signs Temp 97.4 F 11/29/20 08:09 Pulse 81 11/29/20 08:09 Resp 16 11/29/20 08:09 BP 126/84 11/29/20 09:04 Pulse Ox 95 11/29/20 08:09 Weight - Most Recent: 77.111 kg I&O - Last 24 hours: Intake & Output 11/28/20 11/29/20 11/29/20 22:59 06:59 14:59 Intake Total 1000 1210 Output Total 850 500 Balance 150 710 Lab Results - Last 24 hrs: Laboratory Results - last 24 hr 11/28/20 11/28/20 11/28/20 Range/Units 14:08 14:45 14:45 WBC 9.73 (4.0-11.0) K/uL RBC 4.14 L (4.30-5.90) M/uL Hgb 14.2 (12.0-16.0) g/dL Hct 42.1 (36.0-46.0) % MCV 101.7 H (80.0-98.0) fL MCH 34.3 H (27.0-32.0) pg MCHC 33.7 (31.0-37.0) g/dL RDW Std Deviation 62.3 H (28.0-62.0) fl RDW Coeff of Arleen 17 H (11.0-15.0) % Plt Count 246 (150-400) K/uL MPV 11.00 (7.40-12.00) fL Neut % (Auto) 62.4 (48.0-80.0) % Lymph % (Auto) 26.9 (16.0-40.0) % [place] % (Auto) 8.9 (0.0-15.0) % Eos % (Auto) 1.3 (0.0-7.0) % Baso % (Auto) 0.5 (0.0-1.5) % Neut # (Auto) 6.1 H (1.4-5.7) K/uL Lymph # (Auto) 2.6 H (0.6-2.4) K/uL [place] # (Auto) 0.9 H (0.0-0.8) K/uL Eos # (Auto) 0.1 (0.0-0.7) K/uL Baso # (Auto) 0.1 (0.0-0.1) K/uL Nucleated RBC % 0.0 /100WBC Nucleated RBCs # 0 K/uL INR 1.05 APTT 27.4 (18.6-31.3) SEC Sodium 141 (136-145) mmol/L Potassium 3.0 L (3.5-5.1) mmol/L Chloride 105 (98-107) mmol/L Carbon Dioxide 19.9 L (21.0-32.0) mmol/L BUN 7 (7.0-18.0) mg/dL Creatinine 0.8 (0.6-1.0) mg/dL Est Cr Clr Drug Dosing 61.36 mL/min Estimated GFR (MDRD) > 60.0 ml/min Glucose 115 H (74-106) mg/dL Hemoglobin A1c (4.5 - 6.2) % Calcium 8.6 (8.5-10.1) mg/dL Phosphorus (2.6-4.7) mg/dL Magnesium 1.8 (1.8-2.4) mg/dL Total Bilirubin (0.2-1.0) mg/dL AST (15-37) IU/L ALT (14-63) IU/L Alkaline Phosphatase (46-116) U/L Troponin I < 0.050 (0.000-0.056) ng/mL Total Protein (6.4-8.2) g/dL Albumin (3.4-5.0) g/dL Globulin (2.6-4.0) g/dL Albumin/Globulin Ratio (0.9-1.6) Triglycerides (0-200) mg/dL Cholesterol (50-200) mg/dL LDL Cholesterol, Calc (60-180) mg/dL VLDL Cholesterol (5-55) mg/dL HDL Cholesterol (40-60) mg/dL Cholesterol/HDL Ratio (3.3-6.0) 11/28/20 11/28/20 11/28/20 Range/Units 14:45 14:45 17:10 WBC (4.0-11.0) K/uL RBC (4.30-5.90) M/uL Hgb (12.0-16.0) g/dL Hct (36.0-46.0) % MCV (80.0-98.0) fL MCH (27.0-32.0) pg MCHC (31.0-37.0) g/dL RDW Std Deviation (28.0-62.0) fl RDW Coeff of Arleen (11.0-15.0) % Plt Count (150-400) K/uL MPV (7.40-12.00) fL Neut % (Auto) (48.0-80.0) % Lymph % (Auto) (16.0-40.0) % [place] % (Auto) (0.0-15.0) % Eos % (Auto) (0.0-7.0) % Baso % (Auto) (0.0-1.5) % Neut # (Auto) (1.4-5.7) K/uL Lymph # (Auto) (0.6-2.4) K/uL [place] # (Auto) (0.0-0.8) K/uL Eos # (Auto) (0.0-0.7) K/uL Baso # (Auto) (0.0-0.1) K/uL Nucleated RBC % /100WBC Nucleated RBCs # K/uL INR APTT (18.6-31.3) SEC Sodium (136-145) mmol/L Potassium (3.5-5.1) mmol/L Chloride (98-107) mmol/L Carbon Dioxide (21.0-32.0) mmol/L BUN (7.0-18.0) mg/dL Creatinine (0.6-1.0) mg/dL Est Cr Clr Drug Dosing mL/min Estimated GFR (MDRD) ml/min Glucose (74-106) mg/dL Hemoglobin A1c 5.3 (4.5 - 6.2) % Calcium (8.5-10.1) mg/dL Phosphorus (2.6-4.7) mg/dL Magnesium (1.8-2.4) mg/dL Total Bilirubin (0.2-1.0) mg/dL AST (15-37) IU/L ALT (14-63) IU/L Alkaline Phosphatase (46-116) U/L Troponin I < 0.050 (0.000-0.056) ng/mL Total Protein (6.4-8.2) g/dL Albumin (3.4-5.0) g/dL Globulin (2.6-4.0) g/dL Albumin/Globulin Ratio (0.9-1.6) Triglycerides 92 (0-200) mg/dL Cholesterol 179 (50-200) mg/dL LDL Cholesterol, Calc 51 L (60-180) mg/dL VLDL Cholesterol 18 (5-55) mg/dL HDL Cholesterol 110 H (40-60) mg/dL Cholesterol/HDL Ratio 1.6 L (3.3-6.0) 11/28/20 11/29/20 11/29/20 Range/Units 20:10 02:00 05:07 WBC 7.28 (4.0-11.0) K/uL RBC 3.81 L (4.30-5.90) M/uL Hgb 12.8 (12.0-16.0) g/dL Hct 39.2 (36.0-46.0) % MCV 102.9 H (80.0-98.0) fL MCH 33.6 H (27.0-32.0) pg MCHC 32.7 (31.0-37.0) g/dL RDW Std Deviation 64.7 H (28.0-62.0) fl RDW Coeff of Arleen 17 H (11.0-15.0) % Plt Count 238 (150-400) K/uL MPV 10.50 (7.40-12.00) fL Neut % (Auto) 51.0 (48.0-80.0) % Lymph % (Auto) 33.8 (16.0-40.0) % [place] % (Auto) 11.8 (0.0-15.0) % Eos % (Auto) 2.9 (0.0-7.0) % Baso % (Auto) 0.5 (0.0-1.5) % Neut # (Auto) 3.7 (1.4-5.7) K/uL Lymph # (Auto) 2.5 H (0.6-2.4) K/uL [place] # (Auto) 0.9 H (0.0-0.8) K/uL Eos # (Auto) 0.2 (0.0-0.7) K/uL Baso # (Auto) 0.0 (0.0-0.1) K/uL Nucleated RBC % 0.0 /100WBC Nucleated RBCs # 0 K/uL INR APTT (18.6-31.3) SEC Sodium (136-145) mmol/L Potassium (3.5-5.1) mmol/L Chloride (98-107) mmol/L Carbon Dioxide (21.0-32.0) mmol/L BUN (7.0-18.0) mg/dL Creatinine (0.6-1.0) mg/dL Est Cr Clr Drug Dosing mL/min Estimated GFR (MDRD) ml/min Glucose (74-106) mg/dL Hemoglobin A1c (4.5 - 6.2) % Calcium (8.5-10.1) mg/dL Phosphorus (2.6-4.7) mg/dL Magnesium (1.8-2.4) mg/dL Total Bilirubin (0.2-1.0) mg/dL AST (15-37) IU/L ALT (14-63) IU/L Alkaline Phosphatase (46-116) U/L Troponin I < 0.050 < 0.050 (0.000-0.056) ng/mL Total Protein (6.4-8.2) g/dL Albumin (3.4-5.0) g/dL Globulin (2.6-4.0) g/dL Albumin/Globulin Ratio (0.9-1.6) Triglycerides (0-200) mg/dL Cholesterol (50-200) mg/dL LDL Cholesterol, Calc (60-180) mg/dL VLDL Cholesterol (5-55) mg/dL HDL Cholesterol (40-60) mg/dL Cholesterol/HDL Ratio (3.3-6.0) 11/29/20 Range/Units 05:07 WBC (4.0-11.0) K/uL RBC (4.30-5.90) M/uL Hgb (12.0-16.0) g/dL Hct (36.0-46.0) % MCV (80.0-98.0) fL MCH (27.0-32.0) pg MCHC (31.0-37.0) g/dL RDW Std Deviation (28.0-62.0) fl RDW Coeff of Arleen (11.0-15.0) % Plt Count (150-400) K/uL MPV (7.40-12.00) fL Neut % (Auto) (48.0-80.0) % Lymph % (Auto) (16.0-40.0) % [place] % (Auto) (0.0-15.0) % Eos % (Auto) (0.0-7.0) % Baso % (Auto) (0.0-1.5) % Neut # (Auto) (1.4-5.7) K/uL Lymph # (Auto) (0.6-2.4) K/uL [place] # (Auto) (0.0-0.8) K/uL Eos # (Auto) (0.0-0.7) K/uL Baso # (Auto) (0.0-0.1) K/uL Nucleated RBC % /100WBC Nucleated RBCs # K/uL INR APTT (18.6-31.3) SEC Sodium 141 (136-145) mmol/L Potassium 3.7 (3.5-5.1) mmol/L Chloride 107 (98-107) mmol/L Carbon Dioxide 24.8 (21.0-32.0) mmol/L BUN 7 (7.0-18.0) mg/dL Creatinine 0.9 (0.6-1.0) mg/dL Est Cr Clr Drug Dosing 54.55 mL/min Estimated GFR (MDRD) > 60.0 ml/min Glucose 93 (74-106) mg/dL Hemoglobin A1c (4.5 - 6.2) % Calcium 8.1 L (8.5-10.1) mg/dL Phosphorus 3.4 (2.6-4.7) mg/dL Magnesium 2.3 (1.8-2.4) mg/dL Total Bilirubin 0.3 (0.2-1.0) mg/dL AST 33 (15-37) IU/L ALT 38 (14-63) IU/L Alkaline Phosphatase 70 (46-116) U/L Troponin I (0.000-0.056) ng/mL Total Protein 6.5 (6.4-8.2) g/dL Albumin 2.8 L (3.4-5.0) g/dL Globulin 3.7 (2.6-4.0) g/dL Albumin/Globulin Ratio 0.8 L (0.9-1.6) Triglycerides (0-200) mg/dL Cholesterol (50-200) mg/dL LDL Cholesterol, Calc (60-180) mg/dL VLDL Cholesterol (5-55) mg/dL HDL Cholesterol (40-60) mg/dL Cholesterol/HDL Ratio (3.3-6.0) Med Orders - Current: Current Medications Discontinued Medications Acetaminophen (Acetaminophen 325 Mg Tab) 650 mg PO Q4H PRN PRN Reason: Pain (Mild 1-3)/fever Last Admin: 11/28/20 20:26 Dose: 650 mg Documented by: Albuterol/Ipratropium (Albuterol/Ipratropium 3.0-0.5 Mg/3 Ml Neb Soln) 3 ml NEB Q4HRRT PRN PRN Reason: Shortness Of Breath/wheezing Alprazolam (Alprazolam 0.25 Mg Tab) 0.25 mg PO ONETIME ONE Stop: 11/28/20 18:10 Last Admin: 11/28/20 18:35 Dose: 0.25 mg Documented by: Al Hydroxide/Mg Hydroxide 15 (ml/ Lidocaine HCl 5 ml) 0 ml PO ONETIME ONE Stop: 11/28/20 14:28 Last Admin: 11/28/20 15:00 Dose: 1 each Documented by: Doxepin HCl (Doxepin 25 Mg Cap) 300 mg PO BEDTIME [facility] Last Admin: 11/28/20 21:14 Dose: 300 mg Documented by: Ezetimibe (Ezetimibe 10 Mg Tab) 10 mg PO DAILY [facility] Last Admin: 11/29/20 09:03 Dose: 10 mg Documented by: Famotidine (Famotidine 20 Mg Tab) 20 mg PO ONETIME ONE Stop: 11/28/20 14:28 Last Admin: 11/28/20 15:01 Dose: 20 mg Documented by: Dextrose/Lactated Ringer's (Dextrose 5%-Lactated Ringers) 1,000 mls @ 999 mls/hr IV ASDIRECTED [facility] Last Admin: 11/28/20 15:32 Dose: 999 mls/hr Documented by: Magnesium Sulfate (Magnesium Sulfate In Water 2 Gm/50 Ml) 2 gm in 50 mls @ 50 mls/hr IV ONETIME ONE Stop: 11/28/20 16:44 Last Admin: 11/28/20 15:41 Dose: 50 mls/hr Documented by: Pantoprazole Sodium 40 mg/ (Sodium Chloride) 10 mls @ 300 mls/hr IV DAILY [facility] Last Admin: 11/29/20 08:23 Dose: 300 mls/hr Documented by: Iopamidol (Iopamidol 755 Mg/Ml 500 Ml Multipack Bottle) 100 ml IVPUSH ONETIME STA Stop: 11/28/20 16:15 Last Admin: 11/28/20 16:14 Dose: 100 ml Documented by: Lisinopril (Lisinopril 10 Mg Tab) 20 mg PO QAM [facility] Last Admin: 11/29/20 09:04 Dose: 20 mg Documented by: Morphine Sulfate (Morphine 10 Mg/Ml Syringe) 2 mg IVPUSH Q2H PRN PRN Reason: Pain (severe 7-10) Stop: 11/29/20 19:30 Last Admin: 11/28/20 21:25 Dose: 2 mg Documented by: Morphine Sulfate (Morphine 2 Mg/Ml Syringe) 2 mg IVPUSH Q2H PRN PRN Reason: Pain (severe 7-10) Stop: 11/29/20 19:30 Nicotine (Nicotine 14 Mg/24 Hr Patch) 14 mg TRDERM ONETIME ONE Stop: 11/28/20 18:09 Last Admin: 11/28/20 18:35 Dose: 14 mg Documented by: Ondansetron HCl (Ondansetron 4 Mg Tab.Dis) 4 mg PO Q4H PRN PRN Reason: nausea, able to take PO Pneumococcal Polyvalent Vaccine (Pneumococcal Polyvalent-23 Vaccine 0.5 Ml Sdv) 0.5 ml IM .ONCE ONE Stop: 11/29/20 12:01 Last Admin: 11/29/20 11:01 Dose: 0.5 ml Documented by: Potassium Chloride (Potassium Chloride 10% 20 Meq/15 Ml Soln 30 Ml Ud Cup) 40 meq PO ONETIME ONE Stop: 11/28/20 15:26 Last Admin: 11/28/20 15:32 Dose: 40 meq Documented by: Rivaroxaban (Rivaroxaban 10 Mg Tab) 20 mg PO BEDTIME [facility] Last Admin: 11/28/20 20:27 Dose: 20 mg Documented by: Thiamine HCl (Thiamine 100 Mg Tab) 100 mg PO DAILY [facility] Last Admin: 11/29/20 09:03 Dose: 100 mg Documented by: Topiramate (Topiramate 50 Mg Tab) 75 mg PO BID [facility] Last Admin: 11/29/20 09:06 Dose: 75 mg Documented by:
== END 2020-11-29 11:10 | disposition home or self-care (01) ==
LOC: MW.ED 13:58 → MW.MS 19:14
PROVIDERS: ADMIT Internal Medicine; ATTEND Internal Medicine
DX: R07.89 Other chest pain (principal); E83.42 Hypomagnesemia; E87.6 Hypokalemia; I10 Essential (primary) hypertension; E78.5 Hyperlipidemia, unspecified; F41.9 Anxiety disorder, unspecified; I25.10 Atherosclerotic heart disease of native coronary artery without angina pectoris; G47.30 Sleep apnea, unspecified; M81.0 Age-related osteoporosis without current pathological fracture; E66.9 Obesity, unspecified; F17.210 Nicotine dependence, cigarettes, uncomplicated; Z88.8 Allergy status to other drugs, medicaments and biological substances; Z91.018 Allergy to other foods; Z79.899 Other long term (current) drug therapy; Z86.69 Personal history of other diseases of the nervous system and sense organs
CPT/HCPCS: 36415; 71045; 71275; 80048; 80053; 80061; 83036; 83735; 84100; 84484; 85025; 85610; 85730; 90471; 90732; 93005; 96365; 96366; 99285; A9270; C9113; J2270; J3475; J7121; Q9967; 93010; 96375; 99284; G0009; G0378

== ENCOUNTER 2021-07-18 07:47 | Day surgery (SDC) | payer BC ==
[2021-07-18] MEDS ORDERED: HYDROmorphone 1 MG/ML Syringe IVPUSH PRN (07:55)
[2021-07-18] MEDS ORDERED: Metoclopramide 10 MG/2 ML SDV IVPUSH PRN (07:55)
[2021-07-18] MEDS ORDERED: Ondansetron 4 MG/2 ML SDV IVPUSH PRN (07:55)
[2021-07-18] MEDS ORDERED: Naloxone 0.4 MG/ML SDV IVPUSH PRN (07:55)
[2021-07-18] MEDS ORDERED: Albuterol 0.083% 2.5 MG/3 ML Neb Soln NEB PRN (07:55)
[2021-07-18] MEDS ORDERED: Morphine 2 MG/ML SYRINGE IVPUSH PRN (07:55)
[2021-07-18] MEDS: Lactated Ringers 1,000 ML IV SCH ×2 (08:32→11:41)
[2021-07-18] MEDS ORDERED: Lidocaine 2% Jelly 30 ML Tube ONE (08:43)
[2021-07-18] MEDS ORDERED: fentaNYL 100 MCG/2 ML SDV ONE (08:43)
[2021-07-18] MEDS ORDERED: propofoL 100 ML ONE (08:43)
[2021-07-18] MEDS ORDERED: Lidocaine 2% 100 MG/5 ML Syringe ONE (08:43)
[2021-07-18] MEDS ORDERED: Metoclopramide 10 MG/2 ML SDV ONE (08:44)
[2021-07-18] MEDS ORDERED: Ondansetron 4 MG/2 ML SDV ONE ×2 (08:44)
[2021-07-18] MEDS ORDERED: Furosemide 40 MG/4 ML VIAL ONE (08:59)
[2021-07-18] MEDS: fentaNYL 100 MCG/2 ML SDV IVPUSH PRN ×2 (10:59→11:05)
[2021-07-18 11:43] VITALS: BP 120/72; PULSE 77
[2021-07-18] MEDS ORDERED: Acetaminophen 1,000 MG in Premix Bag 1 BAG IV ONE (12:00)
== END 2021-07-18 13:13 | disposition home or self-care (01) ==
LOC: MW.SDS 07:47
PROVIDERS: ATTEND Obstetrics & Gynecology
DX: N87.9 Dysplasia of cervix uteri, unspecified (principal); N88.8 Other specified noninflammatory disorders of cervix uteri; N95.2 Postmenopausal atrophic vaginitis; G47.00 Insomnia, unspecified; I10 Essential (primary) hypertension; K21.9 Gastro-esophageal reflux disease without esophagitis; M81.0 Age-related osteoporosis without current pathological fracture; F17.210 Nicotine dependence, cigarettes, uncomplicated; E55.9 Vitamin D deficiency, unspecified; F10.20 Alcohol dependence, uncomplicated; G40.209 Localization-related (focal) (partial) symptomatic epilepsy and epileptic syndromes with complex partial seizures, not intractable, without status epilepticus; R73.09 Other abnormal glucose; Z79.899 Other long term (current) drug therapy; Z98.890 Other specified postprocedural states; Z88.8 Allergy status to other drugs, medicaments and biological substances; Z91.018 Allergy to other foods
CPT/HCPCS: 57460; J0131; J1940; J2370; J2405; J2704; J2765; J3010; J7120; 00940

== ENCOUNTER 2021-08-02 13:16 | Emergency (ER) | payer BC ==
[2021-08-02 13:55] VITALS: BP 125/78; PULSE 99
== END 2021-08-02 15:29 | disposition home or self-care (01) ==
LOC: MW.ED 13:16
DX: N93.9 Abnormal uterine and vaginal bleeding, unspecified (principal); E78.00 Pure hypercholesterolemia, unspecified; I10 Essential (primary) hypertension; K21.9 Gastro-esophageal reflux disease without esophagitis; E66.9 Obesity, unspecified; Z68.31 Body mass index [BMI] 31.0-31.9, adult; Z91.018 Allergy to other foods; Z91.012 Allergy to eggs; Z88.8 Allergy status to other drugs, medicaments and biological substances; Z79.01 Long term (current) use of anticoagulants; Z79.899 Other long term (current) drug therapy; Z87.891 Personal history of nicotine dependence
CPT/HCPCS: 36415; 85025; 99282; 99284

== ENCOUNTER 2021-08-09 09:22 | Emergency (ER) | payer BC ==
[2021-08-09 09:40] VITALS: BP 131/86; PULSE 116
== END 2021-08-09 10:13 | disposition home or self-care (01) ==
LOC: MW.ED 09:22
DX: N39.0 Urinary tract infection, site not specified (principal); I10 Essential (primary) hypertension; E78.00 Pure hypercholesterolemia, unspecified; F17.210 Nicotine dependence, cigarettes, uncomplicated; Z90.49 Acquired absence of other specified parts of digestive tract; Z86.718 Personal history of other venous thrombosis and embolism; Z88.6 Allergy status to analgesic agent; Z91.012 Allergy to eggs; Z91.018 Allergy to other foods; Z88.8 Allergy status to other drugs, medicaments and biological substances; Z79.899 Other long term (current) drug therapy
CPT/HCPCS: 81001; 99283

== ENCOUNTER 2022-01-16 20:03 | Emergency (ER) | payer BC ==
[~2022-01-16 20:03] MED LIST changes: +Calcium Chloride 10% 1 GM/10 ML Syringe IVPUSH ONE; -Lactated Ringers 1,000 ML IV SCH; -Lidocaine 2% 5 ML SDV ONE; -Midazolam 1 MG/ML 2 ML SDV ONE; -Propofol 200 MG/20 ML SDV ONE; -Sodium Chloride 0.9% 10 ML SDV IV PRN; -Sodium Chloride 0.9% 10 ML Syringe FLUSH PRN; -Sodium Chloride 0.9% 2.5 ML Syringe FLUSH PRN; -fentaNYL 100 MCG/2 ML SDV ONE
[2022-01-16] MEDS ORDERED: Sodium Bicarbonate 8.4% 50 MEQ/50 ML Syringe IVPUSH ONE (20:04)
[2022-01-16] MEDS ORDERED: EPINEPHrine 1:10,000 1 MG/10 ML Syringe IVPUSH ONE (20:07)
[2022-01-16 22:24] VITALS: PULSE 93
== END 2022-01-17 00:14 | disposition expired ==
LOC: MW.ED 20:03
DX: I46.9 Cardiac arrest, cause unspecified (principal); E78.00 Pure hypercholesterolemia, unspecified; I10 Essential (primary) hypertension; K21.9 Gastro-esophageal reflux disease without esophagitis; E66.9 Obesity, unspecified; Z68.30 Body mass index [BMI] 30.0-30.9, adult; Z91.018 Allergy to other foods; Z91.012 Allergy to eggs; Z88.8 Allergy status to other drugs, medicaments and biological substances; Z91.048 Other nonmedicinal substance allergy status; Z79.01 Long term (current) use of anticoagulants; Z79.899 Other long term (current) drug therapy
CPT/HCPCS: 92950; 96374; 96375; 99285; J0171